=== PATIENT | male | born 1960 | race Two or more races ===

== ENCOUNTER 2019-07-15 19:38 | Inpatient (IN) | payer OTHER ==
[~2019-07-15] VITALS: Ht 195.6 cm; Wt 57.6 kg
[2019-07-15] MEDS ORDERED: DILTIAZEM HCL 25 MG/5 ML VIAL IV ONE ×3 (19:41→20:00)
[2019-07-15] MEDS ORDERED: ASPirin 81 mg TAB ONE (19:43)
[2019-07-15] MEDS ORDERED: ASPirin 81 mg TAB PO ONE (19:45)
[2019-07-15] MEDS ORDERED: SODIUM CHLORIDE 0.9% 500 ML IV ONE (19:45)
[2019-07-15 20:00] LABS: Basophils # (auto) 0.1 uL; Basophils % (auto) 1.1 % (0.0-2.0); Eosinophils # (auto) 0.2 uL; Eosinophils % (auto) 2.2 % (0.0-7.0); Hematocrit 43.9 % (41.0-53.0); Hemoglobin 14.2 g/dL (13.5-17.5); Lymphocytes # (auto) 2.8 uL; Lymphocytes % (auto) 35.1 % (10.0-50.0); Mean Corpuscular Hemoglobin 31.5 pg (28.0-32.0); Mean Corpuscular Hgb Conc. 32.3 g/dL (32.0-36.0); Mean Corpuscular Volume 97.5 fL (80.0-100.0); Monocytes # (auto) 0.8 uL; Monocytes % (auto) 10.4 % (0.0-12.0); Neutrophils # (auto) 4.1 uL; Neutrophils % (auto) 51.2 % (37.0-80.0); Nucleated Red Blood Cells % 0.4 %; Platelet Count (auto) 254 10^3/uL (140-450); Red Blood Cells 4.51 10^6/uL (4.5-5.90); Red Cell Distribution Width 15.5 % (11.8-14.3)
[2019-07-15] MEDS ORDERED: DILTIAZEM HCL 60 MG TAB PO ONE ×2 (20:15)
[2019-07-15 20:20] LABS: Alanine Aminotransferase 24 U/L (16-61); Albumin 2.8 g/dL (3.4-5.0); Anion Gap 15 (5-15); Aspartate Aminotransferase 33 U/L (15-37); BUN/Creatinine Ratio 12.2; Blood Urea Nitrogen 15 mg/dL (7-18); Calcium 8.7 mg/dL (8.5-10.1); Carbon Dioxide 21 mmol/L (21-32); Chloride 101 mmol/L (98-107); GFR African American 77 mL/min; GFR Non-African American 64 mL/min; Glucose 122 mg/dL (74-106); Magnesium 1.8 mg/dL (1.6-2.6); Potassium 3.4 mmol/L (3.5-5.1); Sodium 137 mmol/L (136-145)
[2019-07-15 20:21] LABS: INR 1.53 (0.9-1.15); Partial Thromboplastin Time 30.8 sec (23.64-32.05)
[2019-07-15 20:25] LABS: Alkaline Phosphatase 239 U/L (45-117); Bilirubin, Total 2.6 mg/dL (0.2-1.0)
[2019-07-15] MEDS ORDERED: CALCIUM GLUC 4.65meq/50ml D5AE 50 ML IV ONE (20:45)
[2019-07-15] MEDS ORDERED: CALCIUM CHL 100MG/ML 1,000 MG in D5W 5% 100 ML IV ONE (20:45)
[2019-07-15] MEDS ORDERED: LORazepam 2MG/ML-1ML VIAL ONE (20:51)
[2019-07-15] MEDS ORDERED: LORazepam 2MG/ML-1ML VIAL IV ONE ×2 (21:00→21:45)
[2019-07-15] MEDS: NOREPINEPHRINE 8 MG/250ML KIT 250 ML IV SCH (21:42)
[2019-07-15] MEDS ORDERED: MORPHINE SULF INJ 2 MG/ML SYRINGE 1ML IV PRN (22:45)
[2019-07-15] MEDS ORDERED: TEMAZEPAM 15 MG CAP PO PRN (22:45)
[2019-07-15] MEDS ORDERED: NITROGLYCERIN 0.4 MG SL TAB SL PRN (22:45)
[2019-07-15] MEDS ORDERED: ACETAMINOPHEN 325 MG TAB PO PRN (22:45)
[2019-07-15 23:46] LABS: Lactic Acid w/Reflex 8.1 mmol/L (0.4-2.0)
[2019-07-16] VITALS (91 sets, daily range): BP systolic 66–140; BP diastolic 34–112
[2019-07-16] MEDS ORDERED: FUROSEMIDE 20 MG/2 ML VIAL IV ONE
[2019-07-16] MEDS ORDERED: POTASSIUM CHL 20 Meq TABLET PO ONE
--- NOTE | 2019-07-16 00:05 | NUR ---
ADMITTED FROM ER PER JUAN MANUEL . PLACED IN OUR BED IN 111. PLACED ON MONITOR. REVEALED ATRIAL FIB /FLUTTER WITH VARIABLE BLOCK. HR IN THE 80-90 RANGE. ON LEVOPHED 20 MCG/MIN. ALERT. ORIENTED. SPEECH CLEAR. ROOM AIR. LUNGS CLEAR. ABDOMEN SOFT. NO NAUSEA/VOMITING. MOVES ALL EXTREMITIES WELL IN BED. STATED THAT HE DOESN'T WALK WELL. USES READING GLASSES BUT THEY ARE NOT WITH HIM. HAS A VERY DUSKY LOOK TO HIS SKIN. ICTERIC. STATED THAT HE HAD A RECENT DIAGNOSIS OF LIVER CA. NO TREATMENT YET. HAS CHF. LOWER LEG SWELLING LEFT GREATER THAN RIGHT. LOWER LEG COOLNESS. ABLE TO FEEL ALL PULSES. 2 PERIPHERAL IVS. BOTH SHOW NO REDNESS OR SWELLING. ORDERED DOSE OF LASIX AND POTASSIUM.
[2019-07-16 04:12] LABS: Basophils # (auto) 0 uL; Basophils % (auto) 0.2 % (0.0-2.0); Eosinophils # (auto) 0 uL; Eosinophils % (auto) 0.3 % (0.0-7.0); Hematocrit 41.1 % (41.0-53.0); Hemoglobin 13.5 g/dL (13.5-17.5); Lymphocytes # (auto) 1.7 uL; Lymphocytes % (auto) 16.6 % (10.0-50.0); Mean Corpuscular Hgb Conc. 32.8 g/dL (32.0-36.0); Mean Corpuscular Volume 97.4 fL (80.0-100.0); Monocytes # (auto) 0.7 uL; Monocytes % (auto) 7.5 % (0.0-12.0); Neutrophils # (auto) 7.5 uL; Neutrophils % (auto) 75.4 % (37.0-80.0); Nucleated Red Blood Cells % 0.1 %; Platelet Count (auto) 264 10^3/uL (140-450); Red Blood Cells 4.22 10^6/uL (4.5-5.90); Red Cell Distribution Width 15.7 % (11.8-14.3)
[2019-07-16 04:17] LABS: Albumin 2.6 g/dL (3.4-5.0); Calcium 8.9 mg/dL (8.5-10.1); Potassium 4.7 mmol/L (3.5-5.1)
[2019-07-16 04:20] LABS: BUN/Creatinine Ratio 10.5
[2019-07-16 04:23] LABS: Bilirubin, Total 3.6 mg/dL (0.2-1.0); Total Protein 7.2 g/dL (6.4-8.2)
[2019-07-16] MEDS: NOREPINEPHRINE 8 MG/250ML KIT 250 ML IV SCH (06:46)
[2019-07-16] MEDS ORDERED: VANCOMYCIN PER PHARMACY 0 MG IV SCH (07:45)
[2019-07-16] MEDS ORDERED: SODIUM CHLORIDE 0.9% 500 ML IV ONE (07:45)
--- NOTE | 2019-07-16 07:49 | NUR ---
CALL FROM MARGO AIKEN REGARDING RISING LACTIC ACID LEVEL, NEW ORDERS RECEIVED AND CARRIED OUT. WILL CLOSELY MONITOR.
[2019-07-16] MEDS ORDERED: PIPERACILLIN-TAZOB 3.375GM 100 ML IV SCH (08:00)
--- NOTE | 2019-07-16 08:15 | NUR ---
HOLD BOLUS PREVIOUSLY ORDERED BY MARGO GALLEGOS, GREENSTONE POLISHER OPERATOR CARDIOLOGY.
--- NOTE | 2019-07-16 08:16 | NUR ---
PROJECT ACCOUNT MANAGER AT BEDSIDE PROJECT ACCOUNT MANAGER ARTEMIO AT BEDSIDE, UPDATED PATIENT AND NURSE ON PATIENT STATUS, NEW ORDERS RECEIVED. WILL MONITOR CLOSELY. Addendum: 07/16/19 at 0824 by PJ IRWIN RN RN LEVOPHED SHUT OFF PER ROYER ULLOA, WILL MONITOR CLOSELY. 815
--- NOTE | 2019-07-16 08:20 | NUR ---
INITIAL ASSESSMENT PATIENT IN BED, ALERT AND ORIENTED X4 TALKING IN NORMAL TONES, NO SIGNS OF RESPIRATORY DISTRESS OR PAIN NOTED, PUSLES PRESENT ON EXTREMITIES X4, SKIN INTACT, IV'S PATENT AND SALINE FLUSHED, PATIENT ON MONITOR, DAUGHTER AT BEDSIDE, PATIENT AND DAUGHTER UPDATED ON PATIENT STATUS, VERBALIZED UNDERSTANDING. WILL CONTINUE TO MONITOR.
[2019-07-16 09:10] LABS: Cholesterol 96 mg/dL (< 200); Triglycerides 73 mg/dL (< 150)
[2019-07-16 09:12] LABS: HDL Cholesterol 28 mg/dL (40-59); LDL Cholesterol 69 mg/dL (< 100)
[2019-07-16] MEDS ORDERED: FUROSEMIDE 40 MG TAB PO SCH (10:00)
[2019-07-16] MEDS ORDERED: CARVEDILOL 3.125 MG TAB PO SCH (10:00)
[2019-07-16] MEDS ORDERED: ASPirin 81 mg TAB PO SCH (10:00)
--- NOTE | 2019-07-16 10:26 | NUR ---
MEDICAL RECEPTION SPECIALIST AT BEDSIDE
[2019-07-16] MEDS ORDERED: AMIODARONE HCL 150 MG in D5W 5% 100 ML IV ONE (12:00)
--- NOTE | 2019-07-16 12:00 | NUR ---
DR JACKMAN AT BEDSIDE UPDATED PATIENT AND FAMILY ON PATIENTS STATUS, DR JACKMAN DISCUSSED IN DETAIL POC WITH FAMILY, FAMILY VERBALIZED UNDERSTANDING. ORDERS RECEIVED.
--- NOTE | 2019-07-16 12:00 | NUR ---
DR JACKMAN AT BEDSIDE UPDATED PATIENT ON STATUS, NEW ORDERS RECEIVED. Addendum: 07/16/19 at 1227 by PJ IRWIN RN RN DAUGHTER UPDATED ON PATIENT STATUS AT BED SIDE BY DOCTOR, PATIENT AND DAUGHTER VERBALIZED UNDERSTANDING.
[2019-07-16] MEDS ORDERED: AMIODARONE HCL 900 MG in DEXTROSE 500 ML IV SCH ×2 (12:06→18:06)
--- NOTE | 2019-07-16 12:25 | NUR ---
DR SCHULTE AT BEDSIDE UPDATED PATIENT AND DAUGHTER ON STATUS, PATIENT VERBALIZED UNDERSTANDING AND NEW ORDERS RECEIVED.
[2019-07-16] MEDS: ALLOPURINOL 100 MG TAB PO SCH (12:59)
[2019-07-16] MEDS: FAMOTIDINE 20 MG TAB PO SCH ×2 (12:59→22:28)
[2019-07-16] MEDS ORDERED: VANCOMYCIN 1GM/250ML 250 ML IV ONE (13:00)
[2019-07-16] MEDS: ENOXAPARIN SOD 60 MG/0.6 ML SYRINGE SC SCH ×2 (13:00→22:28)
--- NOTE | 2019-07-16 13:07 | NUR ---
PAGED ROYER ULLOA AWAITING CALL BACK
--- NOTE | 2019-07-16 13:35 | NUR ---
CHANGE IN STATUS COMPLETION OF AMIODARONE BOLUS ORDERED BY HOSPITALIST COMFORT MEASURES PROVIDED, WHEN PATIENT ADJUSTED IN BED FOR COMFORT PATIENT BEGAN TO COMPLAIN OF SOB, PATIENT SAT UP ATTEMPTING TO GET OUT OF BED AND SHOUTING "i CANT BREATH" PATIENT PLACED ON NASAL CANNULA AT 6 LITERS, VITAL SIGNS UNSTABLE, PAGED HOSPITALIST TO NOTIFY OF SITUATION, TRAINING DESIGNER NEVAEH ASSISTING WITH PATIENT. PATIENT'S SON AND GRANDSON AT BEDSIDE. 1338 DR JACKMAN AT BEDSIDE, PATIENT ABLE TO VERBALIZE DISCOMFORT AND CONTINUED SOB, ATIVAN ADMINISTERED PER DR JACKAMN ORDERS. PATIENT CALM AND SITTING UP IN BED. PATIENT BEGAN TO BECOME SHORT OF BREATH AGAIN AND RESTLESS. 1400 DR DISCUSSED INTUBATION WITH FAMILY AND PATIENT, ALL VERBALIZED UNDERSTANDING. 1408 ETOMIDATE GIVEN 20MG 1409 5 MG VERSED GIVE 1411 20MG ETOMIDATE GIVEN 1411 5 MG VERSED GIVEN [address] JACKMAN
[2019-07-16] MEDS ORDERED: LORazepam 2MG/ML-1ML VIAL ONE (13:44)
[2019-07-16] MEDS ORDERED: ETOMIDATE (2MG/ML) 20ML VIAL IV ONE (13:58)
[2019-07-16] MEDS ORDERED: MIDAZOLAM HCL 5 MG/ML-1ML VIAL ONE ×2 (13:58→14:09)
[2019-07-16] MEDS ORDERED: SUCCINYLCHOLINE CHLORIDE 20 MG/ML 10ML VIAL IV ONE (14:11)
[2019-07-16] MEDS ORDERED: MIDAZOLAM DRIP 50 mg/50mL 50 ML IV ONE (14:14)
[2019-07-16] MEDS: MIDAZOLAM DRIP 50 mg/50mL 50 ML IV SCH (14:19)
[2019-07-16] MEDS ORDERED: MORPHINE SULFATE 4 MG/ML SYR/VIAL IV PRN (14:30)
--- NOTE | 2019-07-16 14:45 | NUR ---
LEVOPHED STARTED PER PROTOCOL SBP 60'S, HOSPITALIST AND PLASTIC MACHINE OPERATOR AT BEDSIDE AND ORDERED LEVOPHED TO BE INCREASED TO ACHIEVE ADEQUATE SBP. [id number] LEVOPHED INCREASED FROM 2MCG TO 15 MCG PER MD'S ORDERS.
[2019-07-16] MEDS ORDERED: PIPERACILLIN-TAZOB 2.25GM 50 ML IV SCH (15:00)
--- NOTE | 2019-07-16 15:00 | NUR ---
ER PHYSICIAN AT BEDSIDE FOR CENTRAL LINE PLACEMENT ORDERED BY DR JACKMAN. CONSENTS OBTAINED AND FILED IN CHART. 1700 PHYSICIAN AND ACCOUNT GENERAL MANAGER UNABLE TO SUCCESSFULLY PLACE SWANS ETHAN CATHETER BUT DID PLACE CENTRAL LINE TO RIGHT SUBCLAVIAN AND ARTERIAL LINE TO RIGHT FEMORAL. 1730 CXR BEING TAKEN AT THIS TIME
[2019-07-16] MEDS ORDERED: FUROSEMIDE 40 MG/4 ML VIAL IV ONE (15:15)
[2019-07-16 15:44] LABS: Basophils # (auto) 0.1 uL; Basophils % (auto) 0.8 % (0.0-2.0); Eosinophils # (auto) 0.2 uL; Hematocrit 40.1 % (41.0-53.0); Lymphocytes # (auto) 2.4 uL; Mean Corpuscular Hemoglobin 31.8 pg (28.0-32.0); Mean Corpuscular Hgb Conc. 32.4 g/dL (32.0-36.0); Mean Corpuscular Volume 98.1 fL (80.0-100.0); Monocytes # (auto) 0.9 uL; Monocytes % (auto) 8.5 % (0.0-12.0); Neutrophils # (auto) 6.6 uL; Neutrophils % (auto) 64.7 % (37.0-80.0); Nucleated Red Blood Cells % 0.2 %; Platelet Count (auto) 233 10^3/uL (140-450); Red Blood Cells 4.08 10^6/uL (4.5-5.90); Red Cell Distribution Width 15.7 % (11.8-14.3); White Blood Cell 10.1 10^3/uL (4.4-10.8)
[2019-07-16 15:49] LABS: Urine Bacteria NONE SEEN /hpf (None Seen); Urine Blood Negative /uL (Negative); Urine Specific Gravity 1.014 (1.001-1.035); Urine WBC 1 /hpf (0 - 3)
--- NOTE | 2019-07-16 15:50 | NUR ---
RT NOTE: ANIYA BEDSIDE FOR ART LINE PLACEMENT. PT IS AGGITATED. UNABLE TO DRAW ABG AT THIS TIME. WILL PULL ABG WHEN PROCEDURE IS DONE. WILL CONTINUE TO MONITOR.
[2019-07-16 16:09] LABS: Albumin 2.4 g/dL (3.4-5.0); BUN/Creatinine Ratio 14.3; Calcium 7.8 mg/dL (8.5-10.1)
[2019-07-16 16:11] LABS: Alcohol, Urine < 3.0 mg/dL (0-5); Amphetamine Screen, Urine NEGATIVE (NEGATIVE); Barbiturate Scree,Urine NEGATIVE (NEGATIVE); Benzodiazephine Screen, Urine NEGATIVE (NEGATIVE); Cannabinoid Screen, Urine NEGATIVE (NEGATIVE); Cocaine Screen, Urine NEGATIVE (NEGATIVE); Opiate Scree,Urine NEGATIVE (NEGATIVE); Phencyclidine Screen, Urine NEGATIVE (NEGATIVE)
[2019-07-16 16:11] LABS: Lactic Acid w/Reflex 7.8 mmol/L (0.4-2.0)
[2019-07-16 16:25] LABS: Bilirubin, Total 3.4 mg/dL (0.2-1.0); Total Protein 6.6 g/dL (6.4-8.2)
[2019-07-16] MEDS: fentaNYL Drip 2500mCg/250mlNS 250 ML IV SCH (16:40)
--- NOTE | 2019-07-16 16:40 | NUR ---
ADDED ADDITIONAL SEDATION DUE TO PATIENTS INCREASED RESPIRATIONS AND INCREASED BREATHING EFFORT, VERSED MAXED PER PROTOCOL, FENTANYL WAS ADDED ORDERED BY PHYSICIAN. 1640 STARTED AT 25 MCG, 1800 PATIENT AT 200 MCG DUE TO INCREASED RR, INCREASED LABORED BREATHING. FAMILY AT BEDSIDE, AWARE AND UPDATED ON PATIENTS STATUS.
[2019-07-16] MEDS ORDERED: FUROSEMIDE 40 MG/4 ML VIAL IV SCH (18:00)
[2019-07-16] MEDS: FUROSEMIDE INJECTION 250 MG in D5W 5% 225 ML IV SCH (18:00)
[2019-07-16] MEDS: DOBUTamine 1000MCG/ML 250 ML IV SCH (18:00)
[2019-07-16] MEDS: AMIODARONE HCL 900 MG in DEXTROSE 500 ML IV SCH (18:06)
--- NOTE | 2019-07-16 18:25 | NUR ---
SPOKE WITH HOSPITALIST DR TURNER NOTIFIED OF CHEST XRAY AND CENTRAL PLACEMENT AND TO VERIFY CHEST XRAY. ORDERED TO REVIEW REPORT AND CALL BACK. Addendum: 07/16/19 at 2004 by Estefanía Barney RN MISTAKEN ENTRY: CORRECT TIME OF HOSPITALIST CONTACT WAS 1931 AND NOT 1831.
--- NOTE | 2019-07-16 19:10 | NUR ---
END OF SHIFT NOTE PATIENT IN BED, ON VENTILATOR, VSS AND DOCUMENTED, REPORT GIVEN IN ROOM TO SCREEN PRINT OPERATOR RN. FAMILY REMAINS AT BEDSIDE. ENDORSED REVIEW OF ABG AND CXR RESULTS TO SCREEN PRINT OPERATOR RN.
--- NOTE | 2019-07-16 19:32 | NUR ---
PAGED DR TURNER TO READ CHEST XRAY REPORT AND CENTRAL LINE PLACEMENT, AWAITING RESPONSE, JIGNESH COSMETIC MAKER RN AWARE OF PENDING RETURN CALL.
[2019-07-16] MEDS: IPRATROPIUM BROM 0.5 MG/2.5ML INH SOL NEB SCH (19:34)
[2019-07-16] MEDS: ALBUTEROL SULF 2.5 MG/0.5ML(0.5%) NEB SOLN NEB SCH (19:34)
[2019-07-16] MEDS ORDERED: OME20T PO (19:59)
[2019-07-16] MEDS ORDERED: CARV3.1240 PO (19:59)
[2019-07-16] MEDS ORDERED: ALLO100T PO (19:59)
[2019-07-16] MEDS ORDERED: FURO40TA4 PO (19:59)
[2019-07-16] MEDS ORDERED: FURO20TA3 PO (19:59)
[2019-07-16] MEDS ORDERED: HYDR10TA26 PO (19:59)
[2019-07-16] MEDS ORDERED: POTA10TA51 PO (19:59)
[2019-07-16] MEDS ORDERED: TRAM50TA2 PO (19:59)
[2019-07-16] MEDS ORDERED: ISOS10TA2 PO (19:59)
--- NOTE | 2019-07-16 20:20 | NUR ---
PAGED HOSPITALIST RE: CENTRAL LINE COILED PER CXR.
--- NOTE | 2019-07-16 21:40 | NUR ---
PAGED HOSPITALIST RE: CENTRAL LINE COILED PER CXR.
--- NOTE | 2019-07-16 22:20 | NUR ---
S/W Joann AIKEN NP RE: CENTRAL LINE PLACEMENT AND HE WILL COME AND ADJUST WHEN ABLE; ALL GTTS MOVED TO PIV'S UNTIL ABLE TO USE.
[2019-07-17] VITALS (101 sets, daily range): BP systolic 44–169; BP diastolic 16–95
[2019-07-17] MEDS: ALBUTEROL SULF 2.5 MG/0.5ML(0.5%) NEB SOLN NEB SCH ×4 (00:32→20:30)
[2019-07-17] MEDS: IPRATROPIUM BROM 0.5 MG/2.5ML INH SOL NEB SCH ×4 (00:32→20:30)
--- NOTE | 2019-07-17 00:40 | NUR ---
Joann AIKEN NP AT BEDSIDE FOR CENTRAL LINE PLACEMENT [id number] WAS NOT IN RIGHT POSITION.
[2019-07-17 00:56] LABS: Basophils # (auto) 0.1 uL; Basophils % (auto) 0.4 % (0.0-2.0); Eosinophils # (auto) 0.1 uL; Eosinophils % (auto) 0.7 % (0.0-7.0); Hematocrit 38.6 % (41.0-53.0); Hemoglobin 12.6 g/dL (13.5-17.5); Lymphocytes # (auto) 2.9 uL; Lymphocytes % (auto) 18.4 % (10.0-50.0); Mean Corpuscular Hemoglobin 31.6 pg (28.0-32.0); Mean Corpuscular Hgb Conc. 32.6 g/dL (32.0-36.0); Monocytes # (auto) 1.3 uL; Monocytes % (auto) 8.6 % (0.0-12.0); Neutrophils # (auto) 11.1 uL; Neutrophils % (auto) 71.9 % (37.0-80.0); Nucleated Red Blood Cells % 0.1 %; Platelet Count (auto) 256 10^3/uL (140-450); Red Blood Cells 3.98 10^6/uL (4.5-5.90); Red Cell Distribution Width 15.8 % (11.8-14.3); White Blood Cell 15.5 10^3/uL (4.4-10.8)
[2019-07-17 01:13] LABS: BUN/Creatinine Ratio 15.5; Calcium 8.3 mg/dL (8.5-10.1); Magnesium 1.8 mg/dL (1.6-2.6); Potassium 3.9 mmol/L (3.5-5.1)
[2019-07-17 01:16] LABS: INR 2.86 (0.9-1.15); Partial Thromboplastin Time 48.1 sec (23.64-32.05)
[2019-07-17 01:52] LABS: Lactic Acid w/Reflex 7.2 mmol/L (0.4-2.0)
[2019-07-17] MEDS: MAGNESIUM SULFATE 1GM/100ML 100 ML IV SCH ×2 (03:45→05:15)
[2019-07-17 07:06] LABS: Basophils # (auto) 0.1 uL; Basophils % (auto) 1.2 % (0.0-2.0); Eosinophils # (auto) 0.3 uL; Eosinophils % (auto) 2.8 % (0.0-7.0); Hematocrit 39.6 % (41.0-53.0); Hemoglobin 12.8 g/dL (13.5-17.5); Lymphocytes # (auto) 2.7 uL; Mean Corpuscular Hemoglobin 31.4 pg (28.0-32.0); Mean Corpuscular Hgb Conc. 32.4 g/dL (32.0-36.0); Monocytes # (auto) 0.9 uL; Monocytes % (auto) 7.4 % (0.0-12.0); Neutrophils # (auto) 7.6 uL; Neutrophils % (auto) 65.6 % (37.0-80.0); Nucleated Red Blood Cells % 0.2 %; Platelet Count (auto) 268 10^3/uL (140-450); Red Blood Cells 4.09 10^6/uL (4.5-5.90); Red Cell Distribution Width 15.5 % (11.8-14.3); White Blood Cell 11.7 10^3/uL (4.4-10.8)
[2019-07-17 07:23] LABS: Calcium 8.2 mg/dL (8.5-10.1); Lactic Acid w/Reflex 2.9 mmol/L (0.4-2.0); Potassium 3.4 mmol/L (3.5-5.1)
[2019-07-17 07:25] LABS: BUN/Creatinine Ratio 19.3
--- NOTE | 2019-07-17 09:05 | NUR ---
SEDATION VACATION HELD HEMODYNAMICALLY UNSTABLE Addendum: 07/17/19 at 0906 by Jenifer Sparks RN Amended: Links added.
--- NOTE | 2019-07-17 09:45 | NUR ---
EL ULLOA DIGITAL PHOTO PRINTER AT BEDSIDE RECEIVED NEW ORDERS AND IMPLEMENTED
[2019-07-17] MEDS ORDERED: FAMOTIDINE (10MG/ML) 2ML VL IV ONE (09:51)
[2019-07-17] MEDS: ALLOPURINOL 100 MG TAB PO SCH (09:52)
[2019-07-17] MEDS: ASPirin 81 mg TAB PO SCH (09:53)
[2019-07-17 09:54] LABS: Albumin 2.3 g/dL (3.4-5.0); Bilirubin, Direct 3.9 mg/dL (0-0.2)
[2019-07-17] MEDS: MIDAZOLAM DRIP 50 mg/50mL 50 ML IV SCH ×4 (10:00→23:30)
[2019-07-17] MEDS ORDERED: PANTOPRAZOLE 40 MG/10 ML VIAL INJ IV SCH (10:00)
[2019-07-17] MEDS: FAMOTIDINE 20 MG TAB PO SCH (10:00)
--- NOTE | 2019-07-17 10:00 | NUR ---
DR SCHULTE AT BEDSIDE FOR NEPHROLOGY UPDATED ON STATUS AND CURRENT DRIPS
[2019-07-17 10:04] LABS: Bilirubin, Total 5.3 mg/dL (0.2-1.0)
[2019-07-17] MEDS: POTASSIUM CHL 20MEQ/100ML 100 ML IV SCH ×2 (10:37→12:30)
[2019-07-17] MEDS: ENOXAPARIN SOD 60 MG/0.6 ML SYRINGE SC SCH ×2 (10:37→22:00)
--- NOTE | 2019-07-17 11:03 | NUR ---
DR JACKMAN AT BEDSIDE NEW ORDERS RECEIVED
--- NOTE | 2019-07-17 11:12 | NUR ---
PATIENTS DAUGHTER AT BEDSIDE UPDATED ON STATUS AND PLAN OF CARE. ADDRESSED CONCERNS
--- NOTE | 2019-07-17 11:20 | NUR ---
DR DEGROOT AT BEDSIDE DISCUSSED PLAN OF CARE WITH PATIENTS DAUGHTER, RECEIVED ORDERS TO GIVEN 500ML NS FLUID CHALLENGE AND DECREASED LASIX DRIP TOP 2.5ML/HR. NEW ORDERS IMPLEMENTED
--- NOTE | 2019-07-17 12:12 | NUR ---
WOUND CARE NOTE: Wound care in to see patient due to intubation status, putting patient to high risk for skin breakdown. Patient is 58 y/o male with admitting diagnosis of Acute on Chronic CHF. Patient is resting in ICU bed in Rm. 111. Patient is intubated, sedated, on Vasopressor and mechanically ventilated. Patient appears to be in no pain using Duran Castañeda Faces Pain Scale. Unable to fully assess patient's sacral and back due to patient's nurse's report "patient is hemodynamically unstable, just doing slight turn" No reports of pressure injury noted. Patient's nurse also added that patient "unable to tolerate shifting, awaiting to transfer for heart cath". Wound care will try to see patient at later time. RECOMMENDATIONS: BID/PRN cleaning cleaning and application of Barrier cream to sacral/buttocks as preventative per MD order,frequent turning and repositioning schedule as condition permits, redistribute pressure points with pillows, elevate heels on pillows, continue monitoring by wound care while patient is mechanically ventilated.
--- NOTE | 2019-07-17 12:20 | NUR ---
TURNING HELD AT THIS TIME, HEMODYNAMICALLY UNSTABLE. WILL CONTINUE TO REASSESS
[2019-07-17 13:39] LABS: Lactic Acid w/Reflex 2.4 mmol/L (0.4-2.0)
[2019-07-17] MEDS: FUROSEMIDE INJECTION 250 MG in D5W 5% 225 ML IV SCH (15:00)
[2019-07-17] MEDS: fentaNYL Drip 2500mCg/250mlNS 250 ML IV SCH (15:00)
[2019-07-17] MEDS: DOBUTamine 1000MCG/ML 250 ML IV SCH (15:00)
[2019-07-17 17:38] LABS: Lactic Acid w/Reflex 3.1 mmol/L (0.4-2.0)
--- NOTE | 2019-07-17 17:45 | NUR ---
PATIENTS DAUGHTER CHANGED PASSWORD FOR PHONE AND DOOR NEW PASSWORD: [phone]
--- NOTE | 2019-07-17 18:00 | NUR ---
RT NOTE PT RECEIVED INTUBATED AND ON VENT V21. PT INTUBATED WITH A SIZE 8.0 ETT SECURED 24 CM AT THE LIP VIA JULIANN. PT IS ON THE ABOVE SETTINGS AND TOLERATING WELL. TUBE MOVED TO CENTER POSITION TO PREVENT SKIN BREAKDOWN AT THE LIP. VENT PLUGGED INTO RED OUTLET. ALARMS ARE SET AND AUDIBLE. TX HELD FOR NOW IN PREPARATION TO TRANSPORT PT TO SHOP LABORER.
[2019-07-17] MEDS: AMIODARONE HCL 900 MG in DEXTROSE 500 ML IV SCH (18:06)
--- NOTE | 2019-07-17 18:12 | NUR ---
RT ENRIQUE PT TRANSPORTED TO SHEET MANUFACTURING SUPERVISOR WITHOUT INCIDENT. RT MAGUE TOOK OVER FOR RT PAM IN SHEET MANUFACTURING SUPERVISOR.
--- NOTE | 2019-07-17 18:12 | NUR ---
PATIENT TRANSPORTED TO KINESEOLOGIST BY KINESEOLOGIST RNS AND RESPIRATORY THERAPY.
[2019-07-17] MEDS ORDERED: SODIUM CHL 0.9% 0 ML ONE (18:21)
[2019-07-17] MEDS ORDERED: LIDOCAINE 2%HCL (LOCAL ANESTH.) INJ 20ML MDV ONE (18:21)
[2019-07-17] MEDS ORDERED: ANGIOMAX 250 MG VIAL IV ONE (18:21)
[2019-07-17] MEDS ORDERED: IODIXANOL 320MG/ML 100ML BTL IV ONE (18:31)
[2019-07-17 18:40] LABS: Potassium 3.6 mmol/L (3.5-5.1)
[2019-07-17 18:44] LABS: Magnesium 1.8 mg/dL (1.6-2.6)
[2019-07-17] MEDS ORDERED: HEPARIN SODIUM (PORCINE) 5000 UNITS/ML 1ML VIAL ONE (19:05)
[2019-07-17] MEDS ORDERED: DIGOXIN (250MCG/ML) 2 ML AMPULE ONE (19:10)
[2019-07-17] MEDS ORDERED: HEPARIN DRIP/D5W 100UNITS/ML 250 ML IV ONE (19:30)
--- NOTE | 2019-07-17 19:30 | NUR ---
RECEIVED REPORT FROM AGUEDA EGAN: PATIENT OFF UNIT AT THIS TIME.
[2019-07-17] MEDS: HEPARIN DRIP/D5W 100UNITS/ML 250 ML IV SCH (19:50)
--- NOTE | 2019-07-17 19:50 | NUR ---
RECEIVED FROM DEPOT MANAGER - DEPOT MANAGER TEAM AND DR. DEGROOT PRESENT: DR. DEGROOT SPOKE WITH CARPET MECHANIC AND CARMENCITA MEDELLIN RN ABOUT GOALS AND PLAN OF CARE. PER DR. DEGROOT HE WANTS HEMODYNAMICS AND WEDGE PRESSURES EVERY FOUR HOURS. THE GOAL IS TO BRING WEDGE PRESSURES BETWEEN 18-20, SVR < 1200, INCREASE CARDIAC OUTPUT MUCH POSSIBLE, AUGMENTED LESS THAN 120, MEAN > 60. PER DR. DEGROOT, IF PATIENT DETERIORATES, THE PATIENT WILL LIKELY NEED AN IMPELLA, AND TRANSFER TO HIGHER LEVEL OF CARE FOR TRANSPLANT. INTUBATED AND SEDATED, GROSSLY UNRESPONSIVE. PUPILS 2+ SLUGGISH, HYPOACTIVE COUGH AND GAG. AFIB WITH ECTOPY, HR 80-90s. IABP TO LEFT FEMORAL, AUGMENTING 130s, MEAN 90s. +PEDAL PULSES AND RADIAL PULSES. FEET ARE COOL BUT PINK. 8.0 ETT 26 AT THE LIP. LS CTA, DIMINISHED TO BASES. EVEN AND UNLABORED BREATHING. MINIMAL ETT AND ORAL SECRETIONS. SpO2> 95% ON CURRENT VENT SETTINGS. ABD FLAT. HYPOACTIVE BS. LBM 07/16. OGT TO LIS, + AIR BOLUS. TOURE PATENT AND INTACT DRAINING CLEAR YELLOW URINE. PREVIOUS RIGHT [place] REMOVED, DRESSING INTACT, NO ACTIVE BLEEDING, HEMATOMA OR ECCHYMOSIS. PREVIOUS RIGHT IJ CORDIS REMOVED, NO ACTIVE BLEEDING, HEMATOMA, OR ECCHYMOSIS. LEFT IJ TLC, CDI, PATENT WITH BLOOD RETURN. LEFT FEMORAL SWAN ALYSIA CATHETER ~ 85 CM AT THE HUB. 18 G PIV TO LEFT FOREARM, CDI, PATENT WITH BLOOD RETURN. 18 G PIV TO RIGHT WRIST, CDI, AND PATENT WITH BLOOD RETURN. NO PAIN BEHAVIORS IDENTIFIED AT THIS TIME, WILL CONT CARE. NO FAMILY AT BEDSIDE AT THIS TIME.
[2019-07-17] MEDS: NOREPINEPHRINE 8 MG/250ML KIT 250 ML IV SCH (20:50)
--- NOTE | 2019-07-17 21:00 | NUR ---
INCREASE HEPARIN GTT TO 750 UNITS/HR - PER PHARMACY - CONFIRMED WITH DR. DEGROOT THAT HE WANTS HEPARIN PER PROTOCOL
--- NOTE | 2019-07-17 21:00 | NUR ---
UNABLE TO COMPLETE SEDATION VACATION AT THIS TIME: PATIENT ON IABP, INTERMITTENTLY BREATHES ABOVE VENT Addendum: 07/17/19 at 3018 by Karen Garcia RN RN Amended: Links added.
--- NOTE | 2019-07-17 21:15 | NUR ---
LAB DRAW SENT
[2019-07-17 21:59] LABS: Basophils # (auto) 0.1 uL; Basophils % (auto) 1.4 % (0.0-2.0); Eosinophils # (auto) 0.3 uL; Eosinophils % (auto) 3.6 % (0.0-7.0); Hematocrit 42.3 % (41.0-53.0); Hemoglobin 13.9 g/dL (13.5-17.5); Lymphocytes # (auto) 1.6 uL; Lymphocytes % (auto) 19.6 % (10.0-50.0); Mean Corpuscular Hemoglobin 32.1 pg (28.0-32.0); Mean Corpuscular Hgb Conc. 32.9 g/dL (32.0-36.0); Mean Corpuscular Volume 97.7 fL (80.0-100.0); Monocytes # (auto) 0.7 uL; Monocytes % (auto) 7.8 % (0.0-12.0); Neutrophils # (auto) 5.7 uL; Neutrophils % (auto) 67.6 % (37.0-80.0); Nucleated Red Blood Cells % 0.3 %; Platelet Count (auto) 240 10^3/uL (140-450); Red Blood Cells 4.33 10^6/uL (4.5-5.90); Red Cell Distribution Width 15.5 % (11.8-14.3); White Blood Cell 8.4 10^3/uL (4.4-10.8)
[2019-07-17] MEDS: FAMOTIDINE (10MG/ML) 2ML VL IV SCH (22:07)
[2019-07-17 22:23] LABS: INR 2.69 (0.9-1.15)
[2019-07-17 22:44] LABS: Partial Thromboplastin Time 86.9 sec (23.64-32.05)
--- NOTE | 2019-07-17 23:00 | NUR ---
DECREASED HEPARIN GTT TO 550 UNITS/HR - PER PHARMACY - PTT 89.6
[2019-07-18] VITALS (104 sets, daily range): BP systolic 31–198; BP diastolic 13–98
[2019-07-18] MEDS: IPRATROPIUM BROM 0.5 MG/2.5ML INH SOL NEB SCH ×4 (00:04→19:08)
[2019-07-18] MEDS: ALBUTEROL SULF 2.5 MG/0.5ML(0.5%) NEB SOLN NEB SCH ×4 (00:04→19:08)
--- NOTE | 2019-07-18 00:10 | NUR ---
SPOKE WITH DR DEGROOT: UPDATE ON PATIENT'S HEMODYNAMIC STATUS, UOP, AND DRIPS. STOP LASIX GTT, ORDER READBACK AND VERIFIED. PER DR. DEGROOT, CALL BACK AT 0400 IF NUMBERS ARE WORSE. ORDERS READBACK AND VERIFIED
--- NOTE | 2019-07-18 00:15 | NUR ---
TEMP 100.4 F AXILLARY - ICE PACKS APPLIED TO BILATERAL AXILLA
--- NOTE | 2019-07-18 00:20 | NUR ---
LAB DRAW SENT
--- NOTE | 2019-07-18 00:45 | NUR ---
REMOVED PIV TO LEFT FOREARM - NOTED WITH MILD ERYTHEMA, WILL APPLY ICE PACK
[2019-07-18 00:50] LABS: Magnesium 1.7 mg/dL (1.6-2.6)
--- NOTE | 2019-07-18 01:10 | NUR ---
PAGED FIELD CROP FARMING SUPERVISOR HOSPITALIST
--- NOTE | 2019-07-18 01:17 | NUR ---
SPOKE WITH ROYER BECKMAN: NOTIFIED OF POTASSIUM AND MAGNESIUM RESULTS, PATIENT'S STATUS, AND URINE OUT. ORDERS FOR 40 MEQ KCL IVPB, AND 2 GM MAGNESIUM. ORDERS READBACK AND VERIFIED.
[2019-07-18] MEDS ORDERED: POTASSIUM CHL 20MEQ/100ML 100 ML IV ONE ×3 (01:19→16:45)
[2019-07-18] MEDS: POTASSIUM CHL 20MEQ/100ML 100 ML IV SCH ×2 (01:25→02:28)
--- NOTE | 2019-07-18 02:00 | NUR ---
TEMP 100.6 -TYLENOL PRN GIVEN
--- NOTE | 2019-07-18 02:15 | NUR ---
AUGMENTED PRESSURE IN THE HIGH 80S, LOW 90 - STARTED ON 2 MCG/MIN OF LEVOPHED GTT
[2019-07-18] MEDS: MAGNESIUM SULFATE 1GM/100ML 100 ML IV SCH ×3 (02:16→23:48)
[2019-07-18] MEDS: MIDAZOLAM DRIP 50 mg/50mL 50 ML IV SCH ×5 (02:56→20:29)
[2019-07-18] MEDS: fentaNYL Drip 2500mCg/250mlNS 250 ML IV SCH ×2 (03:44→15:17)
--- NOTE | 2019-07-18 04:15 | NUR ---
TEMP NOW 98.5F ORALLY
--- NOTE | 2019-07-18 05:14 | NUR ---
LAB DRAW SENT
[2019-07-18 05:17] LABS: Basophils # (auto) 0.1 uL; Eosinophils # (auto) 0.3 uL; Eosinophils % (auto) 3.5 % (0.0-7.0); Hematocrit 41.1 % (41.0-53.0); Hemoglobin 13.8 g/dL (13.5-17.5); Lymphocytes # (auto) 1.4 uL; Lymphocytes % (auto) 14.5 % (10.0-50.0); Mean Corpuscular Hemoglobin 32.3 pg (28.0-32.0); Mean Corpuscular Hgb Conc. 33.5 g/dL (32.0-36.0); Mean Corpuscular Volume 96.3 fL (80.0-100.0); Monocytes # (auto) 0.7 uL; Monocytes % (auto) 7.9 % (0.0-12.0); Neutrophils # (auto) 6.9 uL; Neutrophils % (auto) 73.1 % (37.0-80.0); Nucleated Red Blood Cells % 0.1 %; Platelet Count (auto) 233 10^3/uL (140-450); Red Blood Cells 4.27 10^6/uL (4.5-5.90); Red Cell Distribution Width 15.9 % (11.8-14.3); White Blood Cell 9.5 10^3/uL (4.4-10.8)
[2019-07-18 05:38] LABS: BUN/Creatinine Ratio 15.7; Calcium 8.1 mg/dL (8.5-10.1); Magnesium 2.4 mg/dL (1.6-2.6); Potassium 3.2 mmol/L (3.5-5.1)
[2019-07-18 06:00] LABS: INR 2.36 (0.9-1.15)
--- NOTE | 2019-07-18 06:00 | NUR ---
PER LAB PTT STILL BEING RAN
[2019-07-18 06:04] LABS: Partial Thromboplastin Time 72.8 sec (23.64-32.05)
--- NOTE | 2019-07-18 06:08 | NUR ---
PTT 72.8 - NO CHANGE IN HEPARIN GTT PER PROTOCOL
--- NOTE | 2019-07-18 06:10 | NUR ---
PAGED UPWARD BOUND DIRECTOR HOSPITALIST
--- NOTE | 2019-07-18 06:23 | NUR ---
SPOKE WITH KARUNA MACHINE SAND MIXER: NOTIFIED OF POTASSIUM AND PHOSPHOROUS LEVEL. ORDERS FOR 26.4 MEQ KPHOS IVPB. ORDERS READBACK AND VERIFIED.
--- NOTE | 2019-07-18 06:45 | NUR ---
PARTIAL BED BATH, AND KULWANT CARE COMPLETED
[2019-07-18] MEDS: DOBUTamine 1000MCG/ML 250 ML IV SCH (06:52)
[2019-07-18] MEDS ORDERED: POTASSIUM PHOSPHATE 26.4 MEQ in SODIUM CHL 0.9% 100 ML IV ONE (07:00)
[2019-07-18] MEDS: NOREPINEPHRINE 8 MG/250ML KIT 250 ML IV SCH (07:27)
--- NOTE | 2019-07-18 08:28 | NUR ---
Resumed care at 0730. Orders reviewed and ongoing assessments being done. Being treated for multiple problems and remains intubated and sedated. At this time not able to follow any commands but withdraws to touch and when rendering care. 8 Fr. 50ml IABP to left groin in place and functioning properly, no signs of bleeding at insertion site or hematoma. Frequency 1:1 with maximum augmentation. Remains in Afib/Aflutter with frequent PVC's. Both lower extremities warm with palpable pulses. PA catheter also inserted via left groin. Hemodynamics done and recorded. Remains on Levophed gtt for hemodynamic stability. Dobutamine also infusing at 2.5 mcg/kg/min. Heparin infusing at 550 units/hour and continuing to monitor PT/PTT. No signs of bleeding.
[2019-07-18] MEDS: FAMOTIDINE (10MG/ML) 2ML VL IV SCH ×2 (09:58→22:11)
[2019-07-18] MEDS: ALLOPURINOL 100 MG TAB PO SCH (09:58)
[2019-07-18] MEDS: ASPirin 81 mg TAB PO SCH (09:58)
--- NOTE | 2019-07-18 10:44 | NUR ---
Dr. Philip, profile mill operator tape control was in at 10 am. Discussed condition and plan of care. Will continue current plan of care. Levophed gtt was increased at 0909 to 10 mcg/min secondary to drop in mean and augmentation pressure, (mean <60 and aug <100). Addendum: 07/18/19 at 1300 by Mariza Gonzáles RN RN Per Dr. Philip may give 40 mg of Lasix if urine outputs decreases < 30ml/hour.
[2019-07-18 11:37] LABS: INR 2.3 (0.9-1.15); Partial Thromboplastin Time 56.7 sec (23.64-32.05)
--- NOTE | 2019-07-18 13:05 | NUR ---
Dr. Lowe, restaurant expeditor rounded at 1148. Daughter Sulema at bedside. Discussed condition and plan of care, all questions answered. Per Dr. Lowe continue to hold Lasix, need adequate filling pressure to wean off IABP. Dr. Brito, hospitalist rounded at [address] Garcia today. Daughter Sulema at bedside and confirmed current plan.
--- NOTE | 2019-07-18 14:46 | NUR ---
Heparin gtt continues to infuse at 550 units/hour. 11am PTT 56.7, per protocol no changes to be made. Next PTT draw at 1700. No bleeding noted.
[2019-07-18] MEDS: FUROSEMIDE INJECTION 250 MG in D5W 5% 225 ML IV SCH (15:00)
--- NOTE | 2019-07-18 15:32 | NUR ---
Serge blood blood approximately at 1503, all IV infusions put on hold to draw blood from TLC, noted immediate drop in arterial pressures post approximately 30 seconds. Levophed increased momentarily to 12 mcg/min, back down to 8 mcg/min.
[2019-07-18 15:52] LABS: BUN/Creatinine Ratio 15.2; Calcium 7.8 mg/dL (8.5-10.1); Magnesium 2.2 mg/dL (1.6-2.6); Potassium 3.4 mmol/L (3.5-5.1)
[2019-07-18 15:55] LABS: INR 2.18 (0.9-1.15); Partial Thromboplastin Time 58.4 sec (23.64-32.05)
[2019-07-18 17:52] LABS: INR 2.08 (0.9-1.15); Partial Thromboplastin Time 55.4 sec (23.64-32.05)
[2019-07-18] MEDS: AMIODARONE HCL 900 MG in DEXTROSE 500 ML IV SCH (18:06)
--- NOTE | 2019-07-18 19:12 | NUR ---
Dr. Brito in unit at 1710 prior to leaving the hospital. Reviewed plan of care. Per Dr. Brito may start Amiodarone gtt if he goes into AFIB RVR at a set dose of 0.5mg/min. 1600 not able to wedge PA catheter. Report given to Karen ROMEO.
--- NOTE | 2019-07-18 19:45 | NUR ---
OPENING NOTE: ASSUMED CARE FROM AGUEDA HOBSON INTUBATED AND SEDATED, GROSSLY UNRESPONSIVE, DOES RESIST INTERMITTENTLY. PUPILS 2+ SLUGGISH, HYPOACTIVE COUGH AND GAG. AFIB WITH ECTOPY, HR 80-90s. IABP TO LEFT FEMORAL, AUGMENTING 100-110ss, MEAN 80s. NO ACTIVE BLEEDING, OR ECCHYMOSIS NOTED. +PEDAL PULSES AND RADIAL PULSES. FEET ARE COOL BUT PINK. 8.0 ETT 26 AT THE LIP. LS CTA, DIMINISHED TO BASES. EVEN AND UNLABORED BREATHING. MINIMAL ETT AND ORAL SECRETIONS. SpO2> 98% ON CURRENT VENT SETTINGS. ABD FLAT. HYPOACTIVE BS. LBM 07/16. OGT CLAMPED, + AIR BOLUS, PALE BROWN ASPIRATE. TOURE PATENT AND INTACT DRAINING ORANGE/LEO URINE. PREVIOUS RIGHT [place] DRESSING INTACT, NO ACTIVE BLEEDING, HEMATOMA OR ECCHYMOSIS. PREVIOUS RIGHT IJ CORDIS NO ACTIVE BLEEDING, HEMATOMA, OR ECCHYMOSIS. LEFT IJ TLC, CDI, PATENT WITH BLOOD RETURN. LEFT FEMORAL SWAN ALYSIA CATHETER ~ 85 CM AT THE HUB. 18 G PIV TO RIGHT WRIST, CDI, AND PATENT WITH BLOOD RETURN. NO PAIN BEHAVIORS IDENTIFIED AT THIS TIME, WILL CONT CARE. NO FAMILY AT BEDSIDE AT THIS TIME. REINFORCED POC. MAINTAINED PATIENT SAFETY: BED LOCKED AND IN THE LOWEST POSITION, NP AT BEDSIDE. WILL CONT CARE
[2019-07-18] MEDS: HEPARIN DRIP/D5W 100UNITS/ML 250 ML IV SCH (20:00)
--- NOTE | 2019-07-18 20:40 | NUR ---
DAMPENED PA WAVEFORM - PAGED DR. MIKAYLA SCHULZ FLUSHED, TROUBLE SHOOTED, CONSULTED WITH AGUEDA DE LA CRUZ.
--- NOTE | 2019-07-18 20:48 | NUR ---
SPOKE WITH DR. DEGROOT: MADE AWARE OF DAMPENED PA WAVEFORM. PER DR. DEGROOT, FLUSH WITH 5 CC OF NS, FAST. ADVISED THAT PHYSICAL DESIGN ENGINEER ATTEMPTED THAT WITH NO CHANGE. PER DR. DEGROOT, DO NOT MANIPULATE LINE AT THIS TIME. DR. DEGROOT MADE AWARE OF BORDERLINE URINE OUTPUT. PER DR. DEGROOT, FLUID CHALLENGE WITH 500 ML NS. ORDERS READBACK AND VERIFIED
[2019-07-18] MEDS ORDERED: SODIUM CHLORIDE 0.9% 500 ML IV ONE (21:00)
--- NOTE | 2019-07-18 21:00 | NUR ---
UNABLE TO COMPLETE SEDATION VACATION AT THIS TIME: REMAINS WITH IABP. BREATHES OVER VENT AND INTERMITTENTLY GRIMACES. WILL CONT CARE Addendum: 07/18/19 at 2219 by Karen Garcia RN RN Amended: Links added.
--- NOTE | 2019-07-18 21:30 | NUR ---
REMOVED 18 G PIV TO RIGHT WRIST - TIP INTACT, BLEEDING STOPPED
--- NOTE | 2019-07-18 21:35 | NUR ---
18 G PIV STARTED TO RIGHT UPPER ARM
--- NOTE | 2019-07-18 21:39 | NUR ---
RT NOTE RT WAS ASKED BY AGUEDA JOSE TO SEE ABOUT PUTTING IN A BITE BLOCK FOR THE PT. RT WENT TO BEDSIDE AND AGREED THAT THE PT WAS CLAMPING DOWN ON THE TUBE AND NEEDED A BLOCK IN PLACE. RT CHANGED OUT THE JULIANN WITH ONE THAT HAS A BITE BLOCK ON IT. JULIANN WAS CHANGED OUT WITHOUT INCIDENT. TUBE REMAINS IN PLACE, 24CM AT THE LIP.
[2019-07-18 22:04] LABS: Potassium 3.6 mmol/L (3.5-5.1)
[2019-07-18 22:10] LABS: Magnesium 1.8 mg/dL (1.6-2.6)
[2019-07-18] MEDS ORDERED: MAGNESIUM SULFATE 1GM/100ML 100 ML IV ONE (23:29)
--- NOTE | 2019-07-18 23:31 | NUR ---
SPOKE WITH ROYER BECKMAN: NOTIFIED OF MAGNESIUM LEVEL 1.8. ORDERS TO REPLACE WITH 2 G OF MAGNESIUM. ORDERS READBACK AND VERIFIED
[2019-07-19] VITALS (97 sets, daily range): BP systolic 18–155; BP diastolic 12–100
[2019-07-19] MEDS: ALBUTEROL SULF 2.5 MG/0.5ML(0.5%) NEB SOLN NEB SCH ×4 (00:08→18:41)
[2019-07-19] MEDS: IPRATROPIUM BROM 0.5 MG/2.5ML INH SOL NEB SCH ×4 (00:08→18:41)
[2019-07-19] MEDS: MAGNESIUM SULFATE 1GM/100ML 100 ML IV SCH (00:27)
--- NOTE | 2019-07-19 00:36 | NUR ---
PATIENT STATUS: REMAINS ON THE IABP, SEE FLOWSHEET FOR ASSESSMENT, SITE CDI, NO ECCHYMOSIS OR ACTIVE BLEEDING. WILL CONT CARE.
[2019-07-19] MEDS: MIDAZOLAM DRIP 50 mg/50mL 50 ML IV SCH ×6 (01:14→21:15)
--- NOTE | 2019-07-19 01:34 | NUR ---
FAMILY AT BEDSIDE
[2019-07-19] MEDS: fentaNYL Drip 2500mCg/250mlNS 250 ML IV SCH ×2 (03:05→13:12)
--- NOTE | 2019-07-19 04:30 | NUR ---
PTT 57 - NO CHANGE IN HEPARIN GTT PER PROTOCOL
[2019-07-19 04:34] LABS: Basophils # (auto) 0.1 uL; Basophils % (auto) 0.9 % (0.0-2.0); Eosinophils # (auto) 0.7 uL; Eosinophils % (auto) 9.7 % (0.0-7.0); Hematocrit 43.9 % (41.0-53.0); Hemoglobin 14.3 g/dL (13.5-17.5); Lymphocytes # (auto) 1.3 uL; Lymphocytes % (auto) 17.4 % (10.0-50.0); Mean Corpuscular Hemoglobin 31.8 pg (28.0-32.0); Mean Corpuscular Hgb Conc. 32.6 g/dL (32.0-36.0); Mean Corpuscular Volume 97.6 fL (80.0-100.0); Monocytes % (auto) 13.7 % (0.0-12.0); Neutrophils # (auto) 4.4 uL; Neutrophils % (auto) 58.3 % (37.0-80.0); Nucleated Red Blood Cells % 0.2 %; Platelet Count (auto) 146 10^3/uL (140-450); Red Cell Distribution Width 16.1 % (11.8-14.3); White Blood Cell 7.5 10^3/uL (4.4-10.8)
--- NOTE | 2019-07-19 04:39 | NUR ---
NON SUSTAINED SVT - 30 SECONDS - CONVERTED ON OWN
[2019-07-19 04:48] LABS: INR 1.82 (0.9-1.15)
[2019-07-19 04:52] LABS: Magnesium 2.3 mg/dL (1.6-2.6); Potassium 3.7 mmol/L (3.5-5.1)
[2019-07-19 04:55] LABS: BUN/Creatinine Ratio 12.5; Calcium 7.4 mg/dL (8.5-10.1)
--- NOTE | 2019-07-19 05:40 | NUR ---
PARTIAL BED BATH, AND NEW GOWN PLACED
--- NOTE | 2019-07-19 05:40 | NUR ---
TOO UNSTABLE TO CHANGE LINEN THIS AM
--- NOTE | 2019-07-19 06:00 | NUR ---
CLOSING NOTE: REMAINS INTUBATED, SEDATED, AND ON IABP. SEE FLOWSHEET FOR ASSESSMENT. VSS. WILL CONT CARE
[2019-07-19] MEDS: NOREPINEPHRINE 8 MG/250ML KIT 250 ML IV SCH (06:43)
--- NOTE | 2019-07-19 07:11 | NUR ---
REPORT AND CARE ENDORSED TO AGUEDA HOBSON
--- NOTE | 2019-07-19 08:46 | NUR ---
Resumed care at 0715, orders reviewed and ongoing assessments being done. Remains intubated and sedated. Does withdraw to touch and frowns when rendering care. 8Fr. 50ml IABP remains in place (to left groin) and functioning properly, no signs of bleeding or hematoma at insertion site. Frequency remains 1:1 with maximum augmentation. Cardiac rhythm, AFIB/AFLUTTER with frequent ectopy (PVC's, couplets). Remains on Dobutamine at a fix rate of 2.5 mcg/kg/min for hemodynamic stability. Levophed also infusing and titrating as appropriate. PA catheter in place, measured at 85 cm at the hub. Measuring hemodynamics Q4 hr (CO, CI, WEDGE). Heparin gtt also infusing at 550 units/hour. No signs of bleeding noted.
[2019-07-19] MEDS: ALLOPURINOL 100 MG TAB PO SCH (09:47)
[2019-07-19] MEDS: ASPirin 81 mg TAB PO SCH (09:47)
[2019-07-19] MEDS: FAMOTIDINE (10MG/ML) 2ML VL IV SCH ×2 (09:47→22:04)
[2019-07-19] MEDS: DOBUTamine 1000MCG/ML 250 ML IV SCH (09:48)
[2019-07-19] MEDS: HEPARIN DRIP/D5W 100UNITS/ML 250 ML IV SCH (10:15)
--- NOTE | 2019-07-19 10:46 | NUR ---
Dr. Lowe, rn clinician rounded at 1010. Discussed condition and plan of care. Per Dr. Lowe give 500ml bolus of normal saline if Wedge pressure measures 12 or less. Daughter Sulema arrived to visit.
[2019-07-19 12:17] LABS: Potassium 3.5 mmol/L (3.5-5.1)
--- NOTE | 2019-07-19 12:39 | NUR ---
Estimated needs based on CBW 67.7 kg-for intubated pts in ICU 1640 kcal (PSU 2002) vs. 7974-4471 kcal (27-30 kcal/kg for wt gain promotion) 100-115 g protein (1.5-1.7 g/kg) Addendum: 07/19/19 at [address] Amended: Links added.
[2019-07-19] MEDS ORDERED: SODIUM CHLORIDE 0.9% 500 ML IV ONE (13:30)
--- NOTE | 2019-07-19 13:30 | NUR ---
Noon hemodynamics measured, PCWP=9. Per Dr. Lowe 500ml bolus of normal saline initiated at 1230. Dr. Lowe returned to unit approximately at 1130 am and spoke with daughter Sulema at bedside. Dr. Brito also rounded for Dr. Garcia today.
--- NOTE | 2019-07-19 15:58 | NUR ---
Levophed infusion stopped at 1327. Pressures holding. Per Dr. Lowe maintain a mean IABP pressure 60-80 with a augmented pressure 20 over mean pressure. Family have continued to visit throughout the day.
[2019-07-19 17:33] LABS: Potassium 3.6 mmol/L (3.5-5.1)
[2019-07-19] MEDS: AMIODARONE HCL 900 MG in DEXTROSE 500 ML IV SCH (18:06)
--- NOTE | 2019-07-19 18:39 | NUR ---
Pressures continue to hold without Levophed. Dobutamine remains at 2.5 mcg/kg/min and no changes made on the IABP. Has become more responsive as shift has progressed, increase in facial movement and increase response when stimulated. Remains on Heparin gtt with no signs of bleeding.
--- NOTE | 2019-07-19 19:30 | NUR ---
CARE ASSUMED. ASSESSMENT: VENTILATED AC/14, TV - 450, FIO2 30%, PEEP +5. SATS 100. LUNGS CLEAR BILATERALLY. LARGE AMT. OF THICK, LIGHT YELLOW SECRETIONS VIA ETT. ORAL CARE WITH MODERATE AMT. OF THICK OLD BLOOD SECRETIONS. SEDATED ON VERSED 15 MG AND FENTANYL 200 MCG/HR. PUPILS 2+, SMALL AMT. OF SCLERA EDEMA, YELLOW SCLERA. RESPOND TO NOXIOUS STIMULI, GRIMACES, (+) STRONG COUGH. CARDIAC - A-FIB/A-FLUTTER, RATE 70'S, FREQUENT PVC'S AND PAC'S, COUPLETS. IABP 1:1, 50 CC, 8 FR. THRU LEFT FEMORAL AREA. SWAN ALYSIA LEFT FEMORAL AT 87 CM AT HUB. NO HEMATOMA FORMATION PALPATED AT THIS TIME. DRESSING CHANGED, TO BOTH. MEAN PRESSURES 90'S, AUGMENTED 120'S. RADIAL AND PEDAL PULSES PALPABLE, SKIN WARM AND DRY. ABDOMEN - FLAT, SOFT, HYPOACTIVE BOWEL SOUNDS. TOURE - CLEAR, ORANGE URINE. HEPARIN AT 550 UNITS /HR. DOBUTAMINE AT 2.5 MCG/KG/MIN. THRU RT. IJ. TRIPLE LUMEN TO LEFT IJ, IV SITE TO RFA INTACT. NO FAMILY AT BEDSIDE AT THIS TIME.
--- NOTE | 2019-07-19 19:45 | NUR ---
ARTERIAL, CVP AND PA LINES ZEROED AND LEVELED.
--- NOTE | 2019-07-19 21:05 | NUR ---
PT'S DAUGHTER ROHIT AT BEDSIDE.
[2019-07-19 21:26] LABS: Magnesium 1.8 mg/dL (1.6-2.6); Potassium 3.5 mmol/L (3.5-5.1)
--- NOTE | 2019-07-19 23:00 | NUR ---
PT'S SONS AT BEDSIDE. QUESTIONS AND CONCERNS ADDRESSED.
[2019-07-19] MEDS ORDERED: MAGNESIUM SULFATE 1GM/100ML 100 ML IV ONE (23:15)
[2019-07-19] MEDS: POTASSIUM CHL 20MEQ/100ML 100 ML IV SCH (23:33)
[2019-07-20] VITALS (108 sets, daily range): BP systolic 40–132; BP diastolic 14–110
--- NOTE | 2019-07-20 | NUR ---
PT'S DAUGHTER ROHIT AT BEDSIDE.
[2019-07-20] MEDS: MIDAZOLAM DRIP 50 mg/50mL 50 ML IV SCH ×5 (01:29→19:36)
[2019-07-20] MEDS: POTASSIUM CHL 20MEQ/100ML 100 ML IV SCH (01:30)
--- NOTE | 2019-07-20 02:00 | NUR ---
ACTIVITY - TOLERATING TURNING, BP'S UNCHANGED. CONTINUES ON VERSED, FENTANYL, DOBUTAMINE. ADEQUATE URINE OUTPUT.
[2019-07-20] MEDS: fentaNYL Drip 2500mCg/250mlNS 250 ML IV SCH ×2 (02:26→13:42)
--- NOTE | 2019-07-20 04:00 | NUR ---
COMPLETE BED BATH - TOLERATES.
[2019-07-20 04:31] LABS: Basophils # (auto) 0 uL; Basophils % (auto) 0.4 % (0.0-2.0); Eosinophils # (auto) 0.5 uL; Eosinophils % (auto) 10.1 % (0.0-7.0); Hematocrit 39.7 % (41.0-53.0); Hemoglobin 13.4 g/dL (13.5-17.5); Lymphocytes # (auto) 1.1 uL; Lymphocytes % (auto) 20.2 % (10.0-50.0); Mean Corpuscular Hemoglobin 32.4 pg (28.0-32.0); Mean Corpuscular Hgb Conc. 33.7 g/dL (32.0-36.0); Mean Corpuscular Volume 96.4 fL (80.0-100.0); Monocytes # (auto) 0.7 uL; Monocytes % (auto) 13.4 % (0.0-12.0); Neutrophils % (auto) 55.9 % (37.0-80.0); Nucleated Red Blood Cells % 0.1 %; Platelet Count (auto) 80 10^3/uL (140-450); Red Blood Cells 4.12 10^6/uL (4.5-5.90); White Blood Cell 5.4 10^3/uL (4.4-10.8)
[2019-07-20 04:48] LABS: Albumin 1.6 g/dL (3.4-5.0); Calcium 7.4 mg/dL (8.5-10.1); Magnesium 2.2 mg/dL (1.6-2.6)
[2019-07-20 04:53] LABS: BUN/Creatinine Ratio 9.8; Bilirubin, Total 6.3 mg/dL (0.2-1.0); Total Protein 5.6 g/dL (6.4-8.2)
[2019-07-20 05:12] LABS: INR 1.58 (0.9-1.15); Partial Thromboplastin Time 68.6 sec (23.64-32.05)
[2019-07-20] MEDS: ALBUTEROL SULF 2.5 MG/0.5ML(0.5%) NEB SOLN NEB SCH ×5 (06:53→23:55)
[2019-07-20] MEDS: IPRATROPIUM BROM 0.5 MG/2.5ML INH SOL NEB SCH ×5 (06:53→23:55)
--- NOTE | 2019-07-20 07:35 | NUR ---
OPENING NOTE Report received from Mary ROMEO, care assumed. Physical assessment performed. Patient is intubated on ventilator, 8.0 ETT. Patient tolerating vent at this time. Oxygen saturation 100%. Lungs clear anteriorly. Pupils equal and reactive. Pulses palble bilaterally. Variable heart rhythm with sinus rhythm to atrial fibrillation with PVC's and PAC's. Blood pressure maintaining without vasopressor assistance. IABP noted in left groin. Dressing is CDI, 1:1 ratio. [place]ole catheter patent, secure below bladder. Skin assessment performed. Patient repositioned. Bed locked in lowest position with HOB [address] Will continue to monitor.
--- NOTE | 2019-07-20 07:40 | NUR ---
REPORT TO LOYDA ROMEO.
--- NOTE | 2019-07-20 07:45 | NUR ---
LINES [place] catheter noted in left groin. Dressing secure, CDI. Approx 87 cm at the hub. CXR performed to confirm placement. All lines zero'd and calibrated. Wedge and C.O./C.I. performed.
--- NOTE | 2019-07-20 08:00 | NUR ---
HEMODYNAMICS PAWP:13 C.O.:3.4 C.I.:2.8 [id number]
--- NOTE | 2019-07-20 09:00 | NUR ---
SEDATION Patient moving toes but not opening eyes at this time. Patient did withdrawal leg from stimuli. Sedation being increased due to patient stacking breaths on ventilator. Patient drawing volumes of 150-400 intermittently. Patient also has hiccups. No distress noted. Respiratory rate maintaining 18-20 breaths per minute. Oxygen saturation 100%. Heart rhythm is Afib with PVC's. Blood pressure stable.
[2019-07-20] MEDS: HEPARIN DRIP/D5W 100UNITS/ML 250 ML IV SCH ×2 (09:30→19:36)
[2019-07-20] MEDS: ALLOPURINOL 100 MG TAB PO SCH (09:32)
[2019-07-20] MEDS: ASPirin 81 mg TAB PO SCH (09:32)
[2019-07-20] MEDS: FAMOTIDINE (10MG/ML) 2ML VL IV SCH ×2 (09:32→21:34)
--- NOTE | 2019-07-20 10:10 | NUR ---
MD VISIT at bedside. MD updated on hemodynamic trends, gtts, and heart rhythms. No new orders received at this time. MD reviewing chart.
--- NOTE | 2019-07-20 10:24 | NUR ---
FAMILY Patient daughter Sulema at bedside. Daughter updated on plan of care. All questions and concerns addressed.
--- NOTE | 2019-07-20 10:56 | NUR ---
assessment Patient is a 58 year old male who is on a vent. No family at bedside. I will continue to monitor for post discharge needs after extubation. Addendum: 07/20/19 at 1057 by Radha HANNON Amended: Links added.
--- NOTE | 2019-07-20 11:00 | NUR ---
MD VISIT at bedside assessing patient. MD aware of gtts, IABP, and labs. MD reviewing chart. Orders obtained.
[2019-07-20] MEDS ORDERED: TPN PER PHARMACY 0 ML IV SCH (11:15)
[2019-07-20] MEDS: DOBUTamine 1000MCG/ML 250 ML IV SCH (11:27)
--- NOTE | 2019-07-20 12:00 | NUR ---
MD VISIT at bedside.
--- NOTE | 2019-07-20 12:00 | NUR ---
HEMODYNAMICS PAWP:16 C.O.:3.1 C.I.:2.6 SVR:[id number]
[2019-07-20 13:07] LABS: Potassium 4.6 mmol/L (3.5-5.1)
[2019-07-20 13:24] LABS: Phosphorus 3.1 mg/dL (2.5-4.90); Pre Albumin 3.3 mg/dL (20.0-40.0)
--- NOTE | 2019-07-20 13:30 | NUR ---
FAMILY AT BEDSIDE
--- NOTE | 2019-07-20 13:38 | NUR ---
REPOSITIONING/AUGMENTS Patient was repositioned on left side. Shortly after repositioning patients augemented pressures began to decrease below 90. Augments would eventually return above but continue to intermittently dip below alarm setting. Arterial waveform damped, PA pressures increased and CVP decreased to 2-3. Patient would also have more frequent ectopy with heart rate 100-115. Patient repositioned back supine with HOB 30 degrees, augments returned to 90-110, all waveforms stabilized and patients ectopy decreased.
--- NOTE | 2019-07-20 16:00 | NUR ---
HEMODYNAMICS PAWP:15 C.O.:3.3 C.I.:2.8 SVR:[id number]
--- NOTE | 2019-07-20 16:30 | NUR ---
ROUNDING NOTE Patient resting, vitals stable at this time. When oral care performed, patient raised bilateral arms up towards ETT. Patient returned to resting once personal care was finished. Patient tolerated turning to right side for repositioning. No changes in hemodynamic stability. Will continue to monitor.
[2019-07-20] MEDS: AMIODARONE HCL 900 MG in DEXTROSE 500 ML IV SCH (18:06)
[2019-07-20 18:16] LABS: Magnesium 1.7 mg/dL (1.6-2.6); Potassium 3.8 mmol/L (3.5-5.1)
--- NOTE | 2019-07-20 18:42 | NUR ---
PAGED notified of magnesium level of 1.7, orders obtained for electrolyte replacement.
--- NOTE | 2019-07-20 19:11 | NUR ---
REPORT Report given to Mary ROMEO, care endorsed.
[2019-07-20] MEDS: MAGNESIUM SULFATE 1GM/100ML 100 ML IV SCH ×2 (19:13→19:39)
--- NOTE | 2019-07-20 19:30 | NUR ---
CARE ASSUMED. REPORT FROM LOYDA ROMEO. ASSESSMENT: CONTINUES SEDATED AND INTUBATED. VERSED AT 11 MG/HR, FENTANYL AT 200 CMG/MIN. ALL INFUSING THRU RIGHT IJ. DOBUTAMINE, HEPARIN CONTINUES. IABP 1:1, AUTO MODE, ECG TRIGGER. HR 90'S, INCREASED ECTOPY COMPARED TO PREVIOUS SHIFT. AUGMENTED AND MEAN PRESSURES PER PUMP LOWER THAN PREVIOUS SHIFT AT THIS TIME. RADIAL AND PEDAL PULSES 2+ BILATERALLY. SKIN COOL TO TOUCH, BUT CORE TEMP 100.1. LUNGS CLEAR UPPER LOBES, COARSE AT BASES. SATS 100%. THICK, LIGHT YELLOW SECRETIONS VIA ETT. ORAL CARE DONE, NO BREAKDOWN TO ORAL MUCOSA NOTED AT THIS TIME. THICK ORAL SECRETIONS PRESENT. TOURE CATH - ORANGE, CLEAR, URINE.
[2019-07-20] MEDS ORDERED: DEXTROSE (50%) 50ML SYRG IV SCH (20:00)
[2019-07-20] MEDS ORDERED: TPN PER PHARMACY IV NR ×6 (20:00)
[2019-07-20] MEDS: NOREPINEPHRINE 8 MG/250ML KIT 250 ML IV SCH (20:50)
[2019-07-20] MEDS: SACUBITRIL-VALSARTAN 24mg/26mg TAB PO SCH (22:00)
--- NOTE | 2019-07-20 23:00 | NUR ---
[id number]- FAMILY AND FRIENDS IN AND OUT VISITING WITH PATIENT.
[2019-07-21] VITALS (95 sets, daily range): BP systolic 0–114; BP diastolic 0–82
--- NOTE | 2019-07-21 01:00 | NUR ---
INCREASED ECTOPY NOTED AT THIS TIME WITH HEART RATE VARYING BETWEEN 80-130'S, CONTINUES A-FIB, /A-FLUTTER, COUPLET, TRIPLETS. AUGMENTED PRESSURES HIGH 80'S TO 90'S. WILL START AMIODARONE AT 0.5 MG.MIN THRU RIGHT IJ CENTRAL LINE AT THIS TIME. WILL CONTINUE TO MONITOR.
[2019-07-21] MEDS: AMIODARONE HCL 900 MG in DEXTROSE 500 ML IV SCH ×2 (01:20→23:49)
--- NOTE | 2019-07-21 02:00 | NUR ---
ECTOPY DECREASED AND HR NOW IN THE 70-80'S. AUGMENTED PRESSURES CONTINUE IN HIGH 80-90'S, MEANS 70'S. URINE OUTPUT ADEQUATE. WILL CONTINUE TO MONITOR.
[2019-07-21] MEDS: fentaNYL Drip 2500mCg/250mlNS 250 ML IV SCH ×2 (02:53→14:57)
[2019-07-21 04:26] LABS: Basophils # (auto) 0 uL; Basophils % (auto) 0.4 % (0.0-2.0); Hemoglobin 13.3 g/dL (13.5-17.5); Mean Corpuscular Hemoglobin 32.4 pg (28.0-32.0); Neutrophils # (auto) 4.4 uL; White Blood Cell 6.2 10^3/uL (4.4-10.8)
[2019-07-21 04:28] LABS: Eosinophils # (auto) 0.2 uL; Hematocrit 39.3 % (41.0-53.0); Lymphocytes # (auto) 0.8 uL; Lymphocytes % (auto) 13.2 % (10.0-50.0); Mean Corpuscular Hgb Conc. 33.8 g/dL (32.0-36.0); Mean Corpuscular Volume 95.7 fL (80.0-100.0); Monocytes # (auto) 0.7 uL; Monocytes % (auto) 10.6 % (0.0-12.0); Neutrophils % (auto) 71.8 % (37.0-80.0); Nucleated Red Blood Cells % 0.1 %; Platelet Count (auto) 64 10^3/uL (140-450)
[2019-07-21 04:41] LABS: Potassium 3.5 mmol/L (3.5-5.1)
[2019-07-21 04:45] LABS: Albumin 1.5 g/dL (3.4-5.0); BUN/Creatinine Ratio 9.2; Calcium 7.3 mg/dL (8.5-10.1); Magnesium 1.9 mg/dL (1.6-2.6)
[2019-07-21 04:48] LABS: Bilirubin, Total 5.8 mg/dL (0.2-1.0); Phosphorus 2.4 mg/dL (2.5-4.90); Total Protein 5.6 g/dL (6.4-8.2)
[2019-07-21 04:57] LABS: INR 1.56 (0.9-1.15); Partial Thromboplastin Time 69.8 sec (23.64-32.05)
--- NOTE | 2019-07-21 05:40 | NUR ---
AUGMENTED PRESSURES LOW 80'S, NO IMPROVEMENT AFTER NS BOLUS. LEVOPHED 2 MCG/MIN STARTED. WITH IMMEDIATE CHANGE IN AUGMENTED PRESSURES, 104, MEAN 89 WILL CONTINUE MONITOR.
[2019-07-21] MEDS: NOREPINEPHRINE 8 MG/250ML KIT 250 ML IV SCH (05:47)
[2019-07-21] MEDS: InsuLIN REG 1unit/0.01ml Soln (100units/ml) SC SCH ×4 (06:00→18:27)
[2019-07-21] MEDS: ACCU-CHEK COMFORT CURVE STRIP VI SCH ×4 (06:00→18:27)
[2019-07-21] MEDS: IPRATROPIUM BROM 0.5 MG/2.5ML INH SOL NEB SCH ×3 (06:09→18:57)
[2019-07-21] MEDS: ALBUTEROL SULF 2.5 MG/0.5ML(0.5%) NEB SOLN NEB SCH ×3 (06:09→18:57)
[2019-07-21] MEDS: MIDAZOLAM DRIP 50 mg/50mL 50 ML IV SCH ×4 (06:43→23:49)
--- NOTE | 2019-07-21 07:30 | NUR ---
CARE ENDORSED TO LOYDA ROMEO
--- NOTE | 2019-07-21 07:35 | NUR ---
OPENING NOTE Report received from Mary ROMEO, care assumed. Physical assessment performed. Patient is intubated on ventilator, 8.0 ETT. Patient tolerating vent at this time. Oxygen saturation 100%. Lungs clear anteriorly. Pupils equal and reactive. Cough and gag present. Pulses palpable bilaterally. Atrial fibrillation with PVC's and PAC's noted on bedside monitor. Hemodynamic stability maintained with levophed gtt and amiodarone. IABP noted in left groin. Dressing is CDI, 1:1 ratio. Nichole catheter patent, secure below bladder. Skin assessment performed. Patient repositioned. Bed locked in lowest position with HOB [address] Will continue to monitor.
--- NOTE | 2019-07-21 07:55 | NUR ---
LINES [place] catheter noted in left groin. Dressing secure, CDI. Approx 87 cm at the hub. CXR performed to confirm placement. All lines zero'd and calibrated. Wedge and C.O./C.I. performed.
--- NOTE | 2019-07-21 08:00 | NUR ---
HEMODYNAMICS PAWP:24 C.O.:2.6 C.I.:2.2 SVR:[id number]
--- NOTE | 2019-07-21 09:18 | NUR ---
MD VISIT at bedside. MD updated on hemodynamics, IV drips, IABP augments, and ectopy. MD ordered for electrolyte replacement.
[2019-07-21] MEDS: FAMOTIDINE (10MG/ML) 2ML VL IV SCH (09:38)
[2019-07-21] MEDS: ASPirin 81 mg TAB PO SCH (09:38)
[2019-07-21] MEDS: SACUBITRIL-VALSARTAN 24mg/26mg TAB PO SCH ×2 (09:38→22:00)
[2019-07-21] MEDS: ALLOPURINOL 100 MG TAB PO SCH (09:38)
--- NOTE | 2019-07-21 09:40 | NUR ---
Provider/Hospitalist at bedside at bedside assessing patient. MD made aware of low trending platelet count, AM labs, IV medications, and hemodynamics. MD reviewing patient chart, orders received. MD speaking with Tour Manager regarding plan of care.
--- NOTE | 2019-07-21 09:50 | NUR ---
Provider/Hospitalist at bedside and at bedside. Patient placed supine, lines zero'd. MD performing PAWP. MD aware of IABP ratio, alarms, and IV drip medications. Orders obtained. MD would like to get patients Wedge pressure near 15. Once achieved may decrease IABP ratio to 1:2, assess patients hemodynamics. If patient continues to maintain hemodynamic stability, RN may continue to wean. Will notify MD of any changes from baseline. MD plans to attempt weaning from IABP today and tomorrow.
[2019-07-21] MEDS ORDERED: POTASSIUM EFFERVESENT TAB 25 MEQ PO ONE ×2 (10:00→15:15)
[2019-07-21] MEDS ORDERED: ASPirin 81 mg TAB PO SCH (10:00)
[2019-07-21] MEDS ORDERED: FUROSEMIDE 40 MG/4 ML VIAL IV ONE (10:15)
--- NOTE | 2019-07-21 10:15 | NUR ---
Provider/Hospitalist at bedside at bedside.
--- NOTE | 2019-07-21 11:00 | NUR ---
LEVOPHED GTT Levophed gtt titrated off, maintaining hemodynamics at this time. Will continue to monitor.
--- NOTE | 2019-07-21 12:00 | NUR ---
ROUNDING Hemodynamic maintaining at this time. Patient running atrial fibrillation with PAC/PVC's. When patient is stimulated, patient begins to shiver/tremor. Tremors subside shortly after stimuli has stopped. Patient continuing to have hiccups on ventilator, RT is aware. Oxygen saturation 100%. No distress noted. Will continue to monitor.
--- NOTE | 2019-07-21 12:00 | NUR ---
HEMODYNAMICS PAWP:23 C.O.:3.2 C.I.:2.7 SVR:[id number]
[2019-07-21] MEDS: DOBUTamine 1000MCG/ML 250 ML IV SCH (12:12)
[2019-07-21] MEDS ORDERED: ALBUMIN 5% 250 ML IV ONE ×2 (13:30→15:30)
--- NOTE | 2019-07-21 13:30 | NUR ---
TEMPERATURE Patient running core temp 100.1. Cooling measures initiated. Ice packed applied to trunk, room temperature decreased, and fan in place. Will continue to monitor.
--- NOTE | 2019-07-21 14:40 | NUR ---
FAMILY Patient daughter Sulema called for update.
--- NOTE | 2019-07-21 15:05 | NUR ---
Called/paged Dr. Garcia called re: Potassium level 3.4. MD returned paged, orders obtained for electrolyte replacement. updated on urine output.
--- NOTE | 2019-07-21 15:43 | NUR ---
Nutrition Follow-Up Note Wt. 66.5 kg Pt. continues to be intubated and sedated at this time. Receives nutrition support through PN at goal rate 42 mL/Hr. Estimated needs: Estimated needs based on CBW 67.7 kg-for intubated pts in ICU 1640 kcal (PSU 2002) vs. 2041-3544 kcal (27-30 kcal/kg for wt gain promotion) 100-115 g protein (1.5-1.7 g/kg) Labs: ALT 325H, ALT 507H, ALB 1.5H, Ca 7.3L Skin: Alex 13, high risk GI: last BM unknown; pt. does not have BM since admission PES: Altered nutrition related lab values r/t hepatic dysfunction and acute/chronic medical conditions aeb severely elev LFT's, hypoalb (ongoing) Monitor: TPN intake/tolerance, BG levels <180 mg/dL, weights, labs, GI. F/U HR 2-3 days. Recommendations: 1) Continue nutrition support through PPN as tolerated at goal rate established by provider to meet >75% estimated needs. 2) IL not recommended d/t elevated LFT's.
[2019-07-21] MEDS ORDERED: POTASSIUM EFFERVESENT TAB 25 MEQ GT ONE (15:45)
--- NOTE | 2019-07-21 16:00 | NUR ---
Hemodynamics PAWP:18 C.O.:3.2 C.I.:2.7 SVR:[id number]
--- NOTE | 2019-07-21 17:00 | NUR ---
Reposition/Linen Skin assessment performed. Partial linen change completed, jose care performed. Patient tolerated activity well. Vitals stable. No distress noted.
--- NOTE | 2019-07-21 17:50 | NUR ---
Family updated on pt status Family of MADIE ANG updated on patient's status and condition. All questions and concerns addressed. Sulema (daughter)verbalized understanding.
--- NOTE | 2019-07-21 19:30 | NUR ---
CARE ASSUMED. PT. CONTINUES AND SEDATED AND INTUBATED. ON VERSED AND FENTANYL, FIO2 30%. LUNG DIMINISHED AND COARSE AT BASES. SATS 100%. SKIN COOL TO TOUCH, SLIGHTLY FEBRILE 100.4 CORE. ABDOMEN - FLAT. HYPOACTIVE B.S NGT TO LIS. NO B.M TOURE - CLEAR, ORANGE URINE. SKIN WARM AND DRY. FEVER 100.1 CORE IV - ALL LINES INTACT. IABP INTACT, NO HEMATOMA
[2019-07-21] MEDS ORDERED: TPN PER PHARMACY IV NR ×7 (20:00)
--- NOTE | 2019-07-21 21:30 | NUR ---
VISITOR: PT'S DAUGHTER ROHIT AT BEDSIDE. QUESTIONS AND CONCERNS ADDRESSED.
[2019-07-21] MEDS: PANTOPRAZOLE 40 MG/10 ML VIAL INJ IV SCH (22:00)
--- NOTE | 2019-07-21 22:00 | NUR ---
IABP ALARMS LEAKING CIRCUIT OR DISCONNECTED WHEN PATIENT TURNS LEFT. WILL TURN RIGHT AND SUPINE.
[2019-07-22] VITALS (107 sets, daily range): BP systolic 42–134; BP diastolic 17–84
[2019-07-22] MEDS: ALBUTEROL SULF 2.5 MG/0.5ML(0.5%) NEB SOLN NEB SCH ×4 (00:48→18:25)
[2019-07-22] MEDS: IPRATROPIUM BROM 0.5 MG/2.5ML INH SOL NEB SCH ×4 (00:48→18:26)
[2019-07-22 03:43] LABS: Eosinophils # (auto) 0.4 uL; Hemoglobin 12.8 g/dL (13.5-17.5); Monocytes # (auto) 0.8 uL; Nucleated Red Blood Cells % 0.1 %; Red Cell Distribution Width 16.3 % (11.8-14.3)
[2019-07-22 03:44] LABS: Basophils # (auto) 0 uL; Basophils % (auto) 0.6 % (0.0-2.0); Eosinophils % (auto) 7.2 % (0.0-7.0); Hematocrit 37.9 % (41.0-53.0); Lymphocytes # (auto) 1.2 uL; Lymphocytes % (auto) 21.2 % (10.0-50.0); Mean Corpuscular Hemoglobin 32.4 pg (28.0-32.0); Mean Corpuscular Hgb Conc. 33.9 g/dL (32.0-36.0); Mean Corpuscular Volume 95.5 fL (80.0-100.0); Monocytes % (auto) 13.5 % (0.0-12.0); Neutrophils # (auto) 3.2 uL; Neutrophils % (auto) 57.5 % (37.0-80.0); Platelet Count (auto) 47 10^3/uL (140-450); Red Blood Cells 3.97 10^6/uL (4.5-5.90); White Blood Cell 5.6 10^3/uL (4.4-10.8)
[2019-07-22 04:00] LABS: INR 1.41 (0.9-1.15); Partial Thromboplastin Time 59.6 sec (23.64-32.05)
[2019-07-22 04:04] LABS: Albumin 1.9 g/dL (3.4-5.0); BUN/Creatinine Ratio 10.3; Calcium 7.5 mg/dL (8.5-10.1); Magnesium 1.8 mg/dL (1.6-2.6); Phosphorus 2.4 mg/dL (2.5-4.90); Potassium 3.6 mmol/L (3.5-5.1)
[2019-07-22 04:07] LABS: Bilirubin, Total 6.5 mg/dL (0.2-1.0); Total Protein 5.8 g/dL (6.4-8.2)
[2019-07-22] MEDS: MIDAZOLAM DRIP 50 mg/50mL 50 ML IV SCH ×4 (04:47→22:03)
[2019-07-22] MEDS: fentaNYL Drip 2500mCg/250mlNS 250 ML IV SCH ×2 (04:48→15:29)
--- NOTE | 2019-07-22 06:55 | NUR ---
REPORT TO JESSICA ROMEO
--- NOTE | 2019-07-22 07:25 | NUR ---
ASSESS- PT. LYING IN BED ON VENT SIZE # 8.0 ET, 26 AT THE LIP, AC-14, TV-450, PEEP-5, FIO2-30%. LUNGS CLEAR TRAVIS. INSPIRATORY AND EXPIRATORY, DIMINISHED BASES TRAVIS. PT. HAS GAG/COUGH REFLEX. PUPILS 2 AND BRISK TRAVIS. RESPONDS TO DEEP PAINFUL/TACTILE STIMULI. ON VERSED GTT. AT 12 MG./HR. AND FENTANYL GTT. AT [address] M[address]. TLC LT. IJ INTACT. TPN AT 50 CC/HR. ABD. SOFT, FLAT. BOWEL SOUNDS HYPOACTIVE ALL FOUR QUADRANTS. OGT IN PLACE TO LIS WITH LT. BROWN DRAINAGE. PT. IS ON IABP TO LT. GROIN 1:1 INTACT 50 CC, 8 FR., NO HEMATOMA, NO BRUISING, NO BLEEDING. RADIAL PULSES STRONG, PALPABLE TRAVIS. WITH BRISK CAPILLARY REFILL. DORSALIS PEDAL PULSES STRONG, PALPABLE TRAVIS. SKIN WARM TO TOUCH UPPER AND LOWER EXTREMITIES. COLOR JAUNDICE. SWAN ALYSIA LT. GROIN INTACT. HEPARIN GTT. AT 550 UNITS/HR. AMIODARONE GTT. AT 0.5 MG./MIN. PT. IS IN A-FIB WITH PAC'S AND PVC'S, HR 90'S.
[2019-07-22] MEDS: ACCU-CHEK COMFORT CURVE STRIP VI SCH ×4 (08:30→17:46)
[2019-07-22] MEDS: InsuLIN REG 1unit/0.01ml Soln (100units/ml) SC SCH ×4 (08:30→17:46)
--- NOTE | 2019-07-22 09:00 | NUR ---
Family updated on pt status Family of SAVMADIE updated on patient's status and condition. All questions and concerns addressed. DAUGHTER verbalized understanding. VISITING AT THE BS.
--- NOTE | 2019-07-22 09:05 | NUR ---
CORE TEMP 100.2. PLACED ICE PACKS TRAVIS. AXILLA.
[2019-07-22] MEDS: PANTOPRAZOLE 40 MG/10 ML VIAL INJ IV SCH (09:13)
[2019-07-22] MEDS: HEPARIN DRIP/D5W 100UNITS/ML 250 ML IV SCH (09:13)
[2019-07-22] MEDS: ALLOPURINOL 100 MG TAB PO SCH (09:14)
--- NOTE | 2019-07-22 09:15 | NUR ---
MARGO GALLEGOS Provider/Hospitalist at bedside. GAVE UPDATE ON PT.
[2019-07-22] MEDS: SACUBITRIL-VALSARTAN 24mg/26mg TAB PO SCH ×2 (09:48→22:00)
--- NOTE | 2019-07-22 10:10 | NUR ---
DR. LIU Provider/Hospitalist at bedside. GAVE UPDATE ON PT.
[2019-07-22] MEDS ORDERED: FUROSEMIDE 20 MG/2 ML VIAL IV ONE (10:45)
--- NOTE | 2019-07-22 10:45 | NUR ---
INSIDE UPHOLSTERER EILEEN AT BS.
--- NOTE | 2019-07-22 10:50 | NUR ---
WOUND CARE NOTE: New wound care request received regarding "pressure area at urethral meatus" . Bedside nurse took photograph of patient's wound upon discovery for reference. Patient continue resting in ICU bed in Rm. 111. Patient remain intubated, sedated, and mechanically ventilated. Patient appears to be in no pain using Duran Castañeda Faces Pain Scale. His Alex sore is 12. Noted distal tip of patient's penis has 0.5x0.5cm open partial thickness wound, appears to be urinary catheter related trauma, no drainage/odor noted. MD ordered Daily/PRN cleaning and application of topical triple antibiotic to wound site. Patient's bedside nurse to cleanse and apply topical antibiotic on penile wound per MD order. RECOMMENDATIONS: Daily/PRN cleaning and application of Triple antibiotic to penile wound per MD order,continuation of all other wound care orders prescribed by MD,continue with skin/wound plan of care, continue monitoring by wound care while patient is mechanically ventilated. Addendum: 07/22/19 at 1509 by Bee Pablo RN Amended: Links added.
--- NOTE | 2019-07-22 10:53 | NUR ---
DR. JACKMAN Provider/Hospitalist at bedside. GAVE UPDATE ON PT. NEW ORDERS RECEIVED.
[2019-07-22] MEDS ORDERED: BACITRACIN-POLYMYXIN B TOPICAL OINT UD TOP SCH (10:54)
[2019-07-22] MEDS: FUROSEMIDE INJECTION 100 MG in D5W 5% 90 ML IV SCH (11:50)
--- NOTE | 2019-07-22 12:00 | NUR ---
TEMP DECREASED TO 99.8 CORE TEMP.
--- NOTE | 2019-07-22 12:28 | NUR ---
Called/paged Dr. JACKMAN called re: . Waiting for call back. Continue care.
--- NOTE | 2019-07-22 12:35 | NUR ---
returned call Dr. JACKMAN returned call, updated on patient status and reason for call, orders received. Continue care.
[2019-07-22] MEDS ORDERED: NEOMYCIN-BACITRACIN-POLYM UNITDOSE PKG TOP OINT TOP ONE (13:00)
[2019-07-22] MEDS: DICYCLOMINE HCL 10 MG CAP GT SCH ×2 (13:40→22:05)
[2019-07-22] MEDS: DOBUTamine 1000MCG/ML 250 ML IV SCH (13:41)
[2019-07-22] MEDS: CLINDAMYCIN 600MG IV 50 ML IV SCH ×2 (13:41→22:06)
--- NOTE | 2019-07-22 14:15 | NUR ---
CORE TEMP 100.5. PLACED ICE PACKS TRAVIS. AXILLA.
--- NOTE | 2019-07-22 16:45 | NUR ---
CORE TEMP REMAINS ELEVATED 100.8. ICE PACKS TRAVIS. AXILLA IN PLACE. NO COVERS ON PT.
--- NOTE | 2019-07-22 17:10 | NUR ---
DAUGHTER VISITING AT THE BS. GAVE UPDATE.
--- NOTE | 2019-07-22 19:45 | NUR ---
VENTED AND SEDATED, FENTANYL, VERSED INFUSING THRU RIJ CENTRA LINE TO RIJ. FIO2 30%, SATS 100%. LUNGS CLEAR UPPER LOBES AND COARSE AT BASES. ETT SECRETIONS PINK TINGED. ORAL SECRETIONS CREAMY AND FOUL SMELLING. OGT PRESENT . POOR DENTITION. CARDIAC - CONTINUES ON AMIODARONE 0.5, HEPARIN 550 UNITS/HR. ABDOMEN - SOFT, HYPOACTIVE BOWEL SOUND, NO B.M SINCE ADMISSION. TOURE - CLEAR, LIGHT LEO URINE, LASIX 5 MG/HR IN PROGRESS. SKIN - L.E WITH SEVERAL DRYING SKIN LESSIONS. ] IABPP 1:1, AUGMENTED 80'S, IABP TO RIGHT GROIN. ALL PULSES 2+ BILATERALLY. EDEMA TO UPPER AND LOWER 1-2+ IABP ALARMING HELIUM LEAK AND LINE DISCONNECTED WHEN PT. PLACED ON LEFT SIDE. WILL TURN RIGHT AND SUPINE THRU THE NIGHT WILL CONTINUE TO MONITOR.
[2019-07-22] MEDS ORDERED: TPN PER PHARMACY IV NR ×8 (20:00)
[2019-07-22] MEDS: NOREPINEPHRINE 8 MG/250ML KIT 250 ML IV SCH (20:50)
--- NOTE | 2019-07-22 22:00 | NUR ---
PT'S DAUGHTER "ROHIT", AT BEDSIDE , QUESTIONS REGARDING PT STATUS AND POSSIBLE TRANSFER TO ANOTHER FACILITY ADDRESSED.
--- NOTE | 2019-07-22 22:30 | NUR ---
Respiratory note: VENOUS BLOOD GAS DRAWN PER DR. DEGROOT'S ORDER, RESULTS REPORTED TO RN.
--- NOTE | 2019-07-22 23:00 | NUR ---
SANA METHOD C.O/C.I DONE - CO - 4.1, CI - 2.4, MIXED VENOUG GAS 65.4
[2019-07-23] VITALS (99 sets, daily range): BP systolic 34–183; BP diastolic 11–183
[2019-07-23] MEDS: IPRATROPIUM BROM 0.5 MG/2.5ML INH SOL NEB SCH ×4 (00:06→18:22)
[2019-07-23] MEDS: ALBUTEROL SULF 2.5 MG/0.5ML(0.5%) NEB SOLN NEB SCH ×4 (00:07→18:22)
--- NOTE | 2019-07-23 00:30 | NUR ---
AUGMENTED PRESSURES 70'S - 80'S. MEANS 60'S. HR 80'S, AFIB/A-FLUTTER. IABP CONTINUES AT 1:1. WILL RESTART LEVOPHED AT 2 MCG/MIN.
[2019-07-23] MEDS: NOREPINEPHRINE 8 MG/250ML KIT 250 ML IV SCH (00:55)
[2019-07-23] MEDS: InsuLIN REG 1unit/0.01ml Soln (100units/ml) SC SCH ×4 (01:05→18:02)
[2019-07-23] MEDS: fentaNYL Drip 2500mCg/250mlNS 250 ML IV SCH ×2 (03:13→15:11)
[2019-07-23] MEDS: FUROSEMIDE INJECTION 100 MG in D5W 5% 90 ML IV SCH (03:13)
--- NOTE | 2019-07-23 03:35 | NUR ---
MOVING UPPER AND LOWER EXTREMITIES SPONTANEOUSLY. FOLLOWS NO COMMANDS
[2019-07-23 03:39] LABS: Basophils # (auto) 0.1 uL; Basophils % (auto) 0.8 % (0.0-2.0); Eosinophils # (auto) 0.3 uL; Eosinophils % (auto) 4.5 % (0.0-7.0); Hematocrit 40.2 % (41.0-53.0); Hemoglobin 13.6 g/dL (13.5-17.5); Lymphocytes # (auto) 1.2 uL; Lymphocytes % (auto) 17.5 % (10.0-50.0); Mean Corpuscular Hgb Conc. 33.8 g/dL (32.0-36.0); Mean Corpuscular Volume 94.5 fL (80.0-100.0); Monocytes % (auto) 14.7 % (0.0-12.0); Neutrophils # (auto) 4.4 uL; Neutrophils % (auto) 62.5 % (37.0-80.0); Nucleated Red Blood Cells % 0.1 %; Platelet Count (auto) 67 10^3/uL (140-450); Red Blood Cells 4.25 10^6/uL (4.5-5.90); Red Cell Distribution Width 16.3 % (11.8-14.3); White Blood Cell 7.1 10^3/uL (4.4-10.8)
[2019-07-23 04:03] LABS: INR 1.4 (0.9-1.15); Partial Thromboplastin Time 58.9 sec (23.64-32.05)
[2019-07-23 04:10] LABS: Albumin 1.9 g/dL (3.4-5.0); Calcium 7.7 mg/dL (8.5-10.1); Magnesium 1.7 mg/dL (1.6-2.6); Potassium 3.1 mmol/L (3.5-5.1)
[2019-07-23 04:11] LABS: BUN/Creatinine Ratio 14.7; Phosphorus 3.7 mg/dL (2.5-4.90)
[2019-07-23 04:13] LABS: Bilirubin, Total 9.1 mg/dL (0.2-1.0); Total Protein 6.7 g/dL (6.4-8.2)
--- NOTE | 2019-07-23 05:30 | NUR ---
INCREASED ECTOPY NOTED THIS A.M, AWAITING LAB RESULTS
[2019-07-23] MEDS: ACCU-CHEK COMFORT CURVE STRIP VI SCH ×4 (06:13→17:57)
[2019-07-23] MEDS: CLINDAMYCIN 600MG IV 50 ML IV SCH ×3 (06:15→22:29)
[2019-07-23] MEDS: DICYCLOMINE HCL 10 MG CAP GT SCH (06:15)
--- NOTE | 2019-07-23 06:22 | NUR ---
SPOKE TO KARUNA LINTON REGARDING K+ 3.1 AND MAG 1.7, ORDERS RECEIVED, WILL INITIATE.
[2019-07-23] MEDS ORDERED: MAGNESIUM SULFATE 1GM/100ML 100 ML IV ONE ×2 (06:26→06:30)
[2019-07-23] MEDS ORDERED: POTASSIUM CHL 20MEQ/100ML 100 ML IV ONE (06:26)
[2019-07-23] MEDS: POTASSIUM CHL 20MEQ/100ML 100 ML IV SCH ×2 (06:30→07:35)
[2019-07-23] MEDS: AMIODARONE HCL 900 MG in DEXTROSE 500 ML IV SCH (06:40)
--- NOTE | 2019-07-23 07:24 | NUR ---
REPORT GIVEN TO JOCE ROMEO
[2019-07-23] MEDS: MIDAZOLAM DRIP 50 mg/50mL 50 ML IV SCH ×2 (08:48→15:04)
--- NOTE | 2019-07-23 09:10 | NUR ---
Resumed care at 0715, orders reviewed and ongoing assessments being done. Remains intubated and sedated. Does withdraw to touch and frowns when rendering care. 8Fr. 50ml IABP remains in place (to left groin) and functioning properly, no signs of bleeding or hematoma at insertion site. Frequency remains 1:1 with maximum augmentation. Cardiac rhythm, AFIB/AFLUTTER with frequent ectopy (PVC's). Remains on Dobutamine at a fix rate of 2.5 mcg/kg/min for hemodynamic stability. Levophed also infusing and titrating as appropriate. PA catheter in place, measured at 85 cm at the hub. Measuring hemodynamics Q4 hr (CO, CI, WEDGE). Core temperature measuring 100.1, applied ice packs and cool compress to the forehead. Continues with persistent hiccups and administering medication as scheduled (Dicyclomine HCL).
[2019-07-23] MEDS: SACUBITRIL-VALSARTAN 24mg/26mg TAB PO SCH ×2 (10:00→22:00)
[2019-07-23] MEDS: ALLOPURINOL 100 MG TAB PO SCH (10:04)
[2019-07-23] MEDS: NEOMYCIN-BACITRACIN-POLYM UNITDOSE PKG TOP OINT TOP SCH (10:04)
[2019-07-23] MEDS: PANTOPRAZOLE 40 MG/10 ML VIAL INJ IV SCH (10:05)
[2019-07-23] MEDS: HEPARIN DRIP/D5W 100UNITS/ML 250 ML IV SCH (10:19)
[2019-07-23] MEDS ORDERED: MILRINONE 20MG/100ML 100 ML IV ONE (10:55)
[2019-07-23] MEDS ORDERED: MILRINONE 4 MG in SODIUM CHL 0.9% 50 ML IV ONE (11:00)
[2019-07-23] MEDS: MILRINONE 20MG/100ML 100 ML IV SCH (11:30)
[2019-07-23] MEDS ORDERED: PROMETHAZINE HCL 25 MG/ML 1ML IV PRN (12:00)
[2019-07-23] MEDS ORDERED: DIGOXIN (250MCG/ML) 2 ML AMPULE IV ONE (12:00)
--- NOTE | 2019-07-23 12:27 | NUR ---
Nutrition Follow-Up Note Wt. 66.5 kg Pt. continues to be intubated and sedated at this time. Receives nutrition support through PN at goal rate 67 mL/Hr. Continues with pressors for hemodynamic stability support. Estimated needs based on CBW 67.7 kg-for intubated pts in ICU; Re-calculate PRN 1640 kcal (PSU 2002) vs. 4209-1051 kcal (27-30 kcal/kg for wt gain promotion) 100-115 g protein (1.5-1.7 g/kg) Labs: ALT 120H, ALT 299H (LFT's trending down), K 3.1L, Glu 159H, Ca 7.7L, Bili 9.1H, ALB 1.9L Skin: Alex 14, high risk GI: last BM unknown; pt. does not have BM since admission, Gastric drainage 100 mL x 24 hrs per documentations PES: Altered nutrition related lab values r/t hepatic dysfunction and acute/chronic medical conditions aeb severely elev LFT's, hypoalb (ongoing) Monitor: TPN intake/tolerance, BG levels <180 mg/dL, weights, labs, GI. F/U HR 2-3 days. Recommendations: 1) Continue nutrition support through PPN as tolerated at goal rate established by provider to meet >75% estimated needs. 2) IL not recommended d/t elevated LFT's (trending down)
[2019-07-23] MEDS: DOBUTamine 1000MCG/ML 250 ML IV SCH (12:59)
--- NOTE | 2019-07-23 13:11 | NUR ---
Had contacted Dr. Lowe at 1055 to discuss plan of care. New orders noted and initiated. Dr. Lowe in unit at 1140. Discussed condition, reviewed data, medications and plan of care. Daughter Sulema at bedside when he rounded. Per Dr. Lowe will try to wean of Levophed gtt. Okay to maintain mean IABP pressure >60. Milrinone; initiated bolus at 1119 and maintenance infusion at 1130, following protocol. Changed medication for hiccups, will administer Thorazine IV when pharmacy verifies medication. Per Dr. Lowe once hiccups are controlled and not bucking ventilator will wean off sedation and assess for weaning parameters.
--- NOTE | 2019-07-23 13:52 | NUR ---
Dr. Garcia, Hospitalist and Dr. Early, Fire Crew Worker both in unit to round on the patient. Discussed condition and plan of care. Both agreed to discontinue Lasix gtt. Also agreed with Dr. Lowe to maintain IABP mean pressure >60. Per Dr. Sharath padilla to record cardiac output using Sudhakar's formula once a day. Daughter Sulema at bedside and was able to speak with them. Addendum: 07/23/19 at 1702 by Mariza Gonzáles RN RN Per Dr. Garcia will not attempt weaning parameters today. She will assess in the am and decide then.
[2019-07-23] MEDS ORDERED: chlorproMAZINE HCL 25 MG/1 ML AMP IV PRN (14:00)
[2019-07-23] MEDS: POTASSIUM EFFERVESENT TAB 25 MEQ GT SCH ×2 (14:08→22:29)
[2019-07-23] MEDS: chlorproMAZINE INECTION 25 MG in SODIUM CHL 0.9% 50 ML IV PRN ×3 (14:30→21:30)
[2019-07-23] MEDS: MAGNESIUM SULFATE 1GM/100ML 100 ML IV SCH ×2 (15:05→15:38)
--- NOTE | 2019-07-23 17:02 | NUR ---
Dr. Early, drawer maker in unit at 1550. Discussed once again goals for titrating off Levophed gtt. Okay to maintain IABP mean pressure >60 as well of MAP >60. Levophed weaned down to 3 mcg/min. Improved CO and CI 5.3/3.0 & SVR 996. Addendum: 07/23/19 at 1917 by Mariza Gonzáles RN RN Per Dr. Early continue to hold Entresto, need to wean off Levophed first before administering.
[2019-07-23] MEDS: FUROSEMIDE 40 MG/4 ML VIAL IV SCH (18:02)
[2019-07-23] MEDS ORDERED: TPN PER PHARMACY IV NR ×9 (20:00)
[2019-07-24] VITALS (107 sets, daily range): BP systolic 19–113; BP diastolic -7–67
[2019-07-24] MEDS: MILRINONE 20MG/100ML 100 ML IV SCH ×2 (00:08→11:25)
[2019-07-24] MEDS: ALBUTEROL SULF 2.5 MG/0.5ML(0.5%) NEB SOLN NEB SCH ×4 (00:12→18:10)
[2019-07-24] MEDS: IPRATROPIUM BROM 0.5 MG/2.5ML INH SOL NEB SCH ×4 (00:12→18:10)
[2019-07-24] MEDS: MIDAZOLAM DRIP 50 mg/50mL 50 ML IV SCH (01:30)
[2019-07-24 03:52] LABS: Basophils # (auto) 0.1 uL; Basophils % (auto) 0.8 % (0.0-2.0); Eosinophils # (auto) 0.7 uL; Hematocrit 34.5 % (41.0-53.0); Hemoglobin 11.8 g/dL (13.5-17.5); Lymphocytes # (auto) 1.1 uL; Lymphocytes % (auto) 16.1 % (10.0-50.0); Mean Corpuscular Hemoglobin 32.4 pg (28.0-32.0); Mean Corpuscular Hgb Conc. 34.3 g/dL (32.0-36.0); Mean Corpuscular Volume 94.4 fL (80.0-100.0); Monocytes # (auto) 0.9 uL; Monocytes % (auto) 14.1 % (0.0-12.0); Neutrophils # (auto) 3.9 uL; Platelet Count (auto) 85 10^3/uL (140-450); Red Blood Cells 3.65 10^6/uL (4.5-5.90); Red Cell Distribution Width 16.6 % (11.8-14.3); White Blood Cell 6.7 10^3/uL (4.4-10.8)
[2019-07-24 04:01] LABS: INR 1.35 (0.9-1.15); Partial Thromboplastin Time 54.3 sec (23.64-32.05)
[2019-07-24 04:09] LABS: Albumin 1.6 g/dL (3.4-5.0); BUN/Creatinine Ratio 13.7; Calcium 7.4 mg/dL (8.5-10.1); Magnesium 2.1 mg/dL (1.6-2.6); Potassium 4.4 mmol/L (3.5-5.1)
[2019-07-24 04:11] LABS: Bilirubin, Total 8.7 mg/dL (0.2-1.0); Phosphorus 2.1 mg/dL (2.5-4.90)
[2019-07-24] MEDS: chlorproMAZINE INECTION 25 MG in SODIUM CHL 0.9% 50 ML IV PRN (04:42)
[2019-07-24] MEDS: POTASSIUM EFFERVESENT TAB 25 MEQ GT SCH ×3 (05:36→22:39)
[2019-07-24] MEDS: CLINDAMYCIN 600MG IV 50 ML IV SCH ×3 (05:37→22:39)
[2019-07-24] MEDS: FUROSEMIDE 40 MG/4 ML VIAL IV SCH ×2 (05:37→18:05)
[2019-07-24] MEDS: InsuLIN REG 1unit/0.01ml Soln (100units/ml) SC SCH ×4 (06:04→18:17)
[2019-07-24] MEDS: ACCU-CHEK COMFORT CURVE STRIP VI SCH ×4 (06:04→18:05)
--- NOTE | 2019-07-24 08:40 | NUR ---
Resumed care at 0715, orders reviewed and ongoing assessments being done. Remains intubated and sedated. Does withdraw to touch and frowns when rendering care, slightly moving hands and feet. 8Fr. 50ml IABP remains in place (to left groin) and functioning properly, no signs of bleeding or hematoma at insertion site. Frequency remains 1:1 with maximum augmentation. Cardiac rhythm, A-FIB with frequent ectopy (PVC's). Remains on Dobutamine at a fix rate of 2.5 mcg/kg/min for hemodynamic stability. Levophed and Milrinone also infusing and titrating as appropriate. PA catheter (7Fr) in place, measured at 85 cm at the hub. Measuring hemodynamics Q4 hr (CO, CI, WEDGE). Unable to wedge times 2 attempts, will try later.
[2019-07-24] MEDS: PANTOPRAZOLE 40 MG/10 ML VIAL INJ IV SCH (09:44)
[2019-07-24] MEDS: DIGOXIN (250MCG/ML) 2 ML AMPULE IV SCH (09:45)
[2019-07-24] MEDS: SACUBITRIL-VALSARTAN 24mg/26mg TAB PO SCH ×2 (09:45→22:00)
[2019-07-24] MEDS: ALLOPURINOL 100 MG TAB PO SCH (09:45)
[2019-07-24] MEDS: NEOMYCIN-BACITRACIN-POLYM UNITDOSE PKG TOP OINT TOP SCH (09:46)
[2019-07-24] MEDS: AMIODARONE HCL 900 MG in DEXTROSE 500 ML IV SCH (10:12)
[2019-07-24] MEDS: HEPARIN DRIP/D5W 100UNITS/ML 250 ML IV SCH (11:30)
--- NOTE | 2019-07-24 11:42 | NUR ---
Dr. Garcia was in at 0915 to round. Discussed condition and plan of care. Will wean off sedation and consider CPAP trial if appropriate today. Versed was weaned off at 1010 am and FentaNLY decreased to 100mcg/hour. Not opening eyes yet but gag and cough more pronounced. Has converted to NSR, continues to have frequent PVC's, ECG done. Dr. Alvares, focusing machine operator in to round. Daughter Sulema at bedside.
[2019-07-24] MEDS ORDERED: SODIUM PHOSPHATES 10 MEQ in SODIUM CHL 0.9% 100 ML IV ONE (12:00)
[2019-07-24] MEDS ORDERED: SODIUM PHOSPHATES 20 MEQ in SODIUM CHL 0.9% 100 ML IV ONE (13:45)
[2019-07-24] MEDS: DOBUTamine 1000MCG/ML 250 ML IV SCH (13:55)
--- NOTE | 2019-07-24 14:25 | NUR ---
Dr. Lowe, policy loan calculator in to round at 1235. Discussed condition and plan of care. Data and medications reviewed. Had had difficulty in wedging PA catheter. Dr. Lowe attempted and measured 19. Changed IABP frequency to 1:3 at 1240. If tolerates and PAD pressures do not elevate and stay below 26 may consider removal of of IABP. Contacted Dr. Lowe at 1350. Reported hemodynamics, PAD has remained within 17-19. Will be in to pull IABP. Arrived to unit at 1406. Reviewed medications. Still on Heparin infusion at 500units/hour. Will discontinue and return in 2 hours to remove IABP. Place back on 1:1 frequency for maximum support. Has not woken up since sedation turned off at 1010 am. Continues to with draw to touch but not following any direction or opening eyes yet.
[2019-07-24] MEDS ORDERED: LORazepam 2MG/ML-1ML VIAL IV ONE (15:00)
[2019-07-24] MEDS ORDERED: MIDAZOLAM HCL 5 MG/ML-1ML VIAL IV ONE (15:00)
--- NOTE | 2019-07-24 18:42 | NUR ---
Dr. Early, electrical engineering technician was in to remove IABP. IABP removed at 1630 without incident and manual pressure was held by him for approximately 25 minutes. Area cleansed and Surigicel Snow (absorbable hemostat) applied to puncture site and dressing applied. No bleeding or hematoma since removal of IABP. Good palpable pulses to left foot and warm to touch. Continue with Amiodarone, Dobutamine, Levophed and Milrinone for hemodynamic stability. Will wean off Dobutamine infusion first as appropriate per Dr. Lowe. Still asleep and has not awoken since sedation turned off at 1010 am. Positive cough and gag remain intact. Hiccups still persistent but not as evident. Daughter Sulmea back in room visiting.
[2019-07-24] MEDS ORDERED: TPN PER PHARMACY IV NR ×9 (20:00)
[2019-07-24] MEDS: NOREPINEPHRINE 8 MG/250ML KIT 250 ML IV SCH (20:50)
[2019-07-25] VITALS (123 sets, daily range): BP systolic 44–109; BP diastolic 12–60
[2019-07-25] MEDS: IPRATROPIUM BROM 0.5 MG/2.5ML INH SOL NEB SCH ×4 (00:53→18:42)
[2019-07-25] MEDS: ALBUTEROL SULF 2.5 MG/0.5ML(0.5%) NEB SOLN NEB SCH ×4 (00:53→18:42)
[2019-07-25] MEDS: MILRINONE 20MG/100ML 100 ML IV SCH ×2 (02:54→09:38)
[2019-07-25 03:51] LABS: Basophils # (auto) 0 uL; Basophils % (auto) 0.6 % (0.0-2.0); Eosinophils # (auto) 0.6 uL; Eosinophils % (auto) 8.8 % (0.0-7.0); Hematocrit 34.9 % (41.0-53.0); Hemoglobin 11.9 g/dL (13.5-17.5); Lymphocytes # (auto) 0.8 uL; Lymphocytes % (auto) 12.8 % (10.0-50.0); Mean Corpuscular Hemoglobin 32.2 pg (28.0-32.0); Mean Corpuscular Volume 94.8 fL (80.0-100.0); Monocytes # (auto) 1.1 uL; Monocytes % (auto) 16.6 % (0.0-12.0); Neutrophils % (auto) 61.2 % (37.0-80.0); Platelet Count (auto) 132 10^3/uL (140-450); Red Blood Cells 3.68 10^6/uL (4.5-5.90); Red Cell Distribution Width 16.6 % (11.8-14.3); White Blood Cell 6.5 10^3/uL (4.4-10.8)
[2019-07-25 04:04] LABS: INR 1.31 (0.9-1.15); Partial Thromboplastin Time 41.4 sec (23.64-32.05)
[2019-07-25 04:07] LABS: Albumin 1.7 g/dL (3.4-5.0); Calcium 7.5 mg/dL (8.5-10.1); Magnesium 2.2 mg/dL (1.6-2.6); Potassium 4.9 mmol/L (3.5-5.1)
[2019-07-25 04:12] LABS: BUN/Creatinine Ratio 17.7; Bilirubin, Total 8.7 mg/dL (0.2-1.0); Phosphorus 3.3 mg/dL (2.5-4.90); Total Protein 6.8 g/dL (6.4-8.2)
[2019-07-25] MEDS: POTASSIUM EFFERVESENT TAB 25 MEQ GT SCH ×3 (05:51→22:20)
[2019-07-25] MEDS: CLINDAMYCIN 600MG IV 50 ML IV SCH ×3 (05:51→22:19)
[2019-07-25] MEDS: FUROSEMIDE 40 MG/4 ML VIAL IV SCH (05:51)
[2019-07-25] MEDS: InsuLIN REG 1unit/0.01ml Soln (100units/ml) SC SCH ×4 (06:29→17:47)
[2019-07-25] MEDS: ACCU-CHEK COMFORT CURVE STRIP VI SCH ×4 (06:29→17:47)
--- NOTE | 2019-07-25 06:55 | NUR ---
Respiratory note: RECEIVED PATIENT ON V21 V200 VENT ORALLY INTUBATED WITH AN 8.0 ETT SECURED VIA JULIANN AT THE 26CM MARKING AT THE LIP, AND MECHANICALLY VENTILATED WITH THE CHARTED SETTINGS. SPO2 100%, LUNG SOUNDS DIM T/O, NO SECRETIONS WHEN SUCTIONED. SKIN IS WARM/DRY TO THE TOUCH AND IS INTACT NEAR JULIANN SITE. THERE IS AN OGT IN PLACE AND SECURED TO THE ETT, A TRIPLE LUMEN CENTRAL LINE IS PLACED IN THE LEFT IJ, AND NO EDEMA NOTED. THERE IS A SWAN-ALYSIA CATHETER IN PLACE MEASURING PA PRESSURES, PA PRESSURES ELEVATED AT THIS TIME 61/18. NO NEW AM CXR TO ASSESS AT THIS TIME. PATIENT IS UNRESPONSIVE TO BOTH VERBAL/TACTILE STIMULI AND IS SEDATED ON A FENTANYL DRIP. HE IS RESTING COMFORTABLY AND TOLERATING VENT WELL, NO CHANGES MADE. VENT PLUGGED INTO RED OUTLET AND ALL ALARMS ARE SET AND AUDIBLE. WILL CONTINUE TO ASSESS PATIENT WELL VENTILATOR FUNCTION. Mobile Authentication-[employer] RUN INLINE.
--- NOTE | 2019-07-25 07:30 | NUR ---
ASSESS- PT. LYING IN BED ON VENT SIZE # 8.0 ET, 26 AT THE LIP, AC-14, TV-450, PEEP-5, FIO2-30%. LUNGS COARSE TRAVIS. INSPIRATORY AND EXPIRATORY. PT. HAS GAG/COUGH REFLEX. PUPILS 2 AND BRISK TRAVIS. ON FENTANYL GTT. AT 100 MCG. RESPONDS TO PAINFUL/TACTILE STIMULI. NO MOVEMENT OF EXTREMITIES SEEN. TLC LT. IJ INTACT. LT. FEMORAL SWAN IN PLACE, DSG. D/I. MILIRONE GTT. AT 0.375 MCG., AMIODARONE GTT. AT 0.5 MG./MIN., DOBUTAMINE GTT. AT 2.5 MCG. ABD. SOFT, FLAT. BOWEL SOUNDS HYPOACTIVE ALL FOUR QUADRANTS. OGT IN PLACE, CLAMPED. PT. IS NPO. ON TPN AT 75 CC./HR. RADIAL PULSES STRONG, PALPABLE TRAVIS. PEDAL PULSES STRONG, PALPABLE TRAVIS. 1 PLUS PITTING EDEMA LE TRAVIS. OPEN WOUND AT TIP OF PENIS, OPEN TO AIR.
--- NOTE | 2019-07-25 09:00 | NUR ---
CORE TEMP 100.2. PLACED ICE PACKS TRAVIS. AXILLA. REMOVED SHEET. MONITORING TEMP.
[2019-07-25] MEDS: HEPARIN DRIP/D5W 100UNITS/ML 250 ML IV SCH (09:30)
[2019-07-25] MEDS: PANTOPRAZOLE 40 MG/10 ML VIAL INJ IV SCH (09:37)
[2019-07-25] MEDS: ALLOPURINOL 100 MG TAB PO SCH (09:37)
[2019-07-25] MEDS: DIGOXIN (250MCG/ML) 2 ML AMPULE IV SCH (09:38)
[2019-07-25] MEDS: SACUBITRIL-VALSARTAN 24mg/26mg TAB PO SCH (10:00)
--- NOTE | 2019-07-25 10:00 | NUR ---
DR. VACA Provider/Hospitalist at bedside. GAVE UPDATE ON PT. NEW ORDERS RECEIVED.
[2019-07-25] MEDS: MIDAZOLAM DRIP 50 mg/50mL 50 ML IV SCH (10:51)
[2019-07-25] MEDS: NEOMYCIN-BACITRACIN-POLYM UNITDOSE PKG TOP OINT TOP SCH (10:51)
--- NOTE | 2019-07-25 11:30 | NUR ---
DAUGHTER VISITING AT THE .
--- NOTE | 2019-07-25 12:00 | NUR ---
CORE TEMP DECREASED TO 99.7.
[2019-07-25] MEDS: NOREPINEPHRINE 8 MG/250ML KIT 250 ML IV SCH (13:00)
--- NOTE | 2019-07-25 13:25 | NUR ---
DR. CRISTINA Provider/Hospitalist at bedside. GAVE UPDATE ON PT. NEW ORDERS RECEIVED.
[2019-07-25] MEDS ORDERED: Glucerna 1.2 Cal 1Liter BOTTLE GT SCH (13:30)
--- NOTE | 2019-07-25 14:13 | NUR ---
Called/paged Dr. VELÁSQUEZ called re:. Waiting for call back. Continue care.
[2019-07-25] MEDS: fentaNYL Drip 2500mCg/250mlNS 250 ML IV SCH ×2 (14:19→18:55)
--- NOTE | 2019-07-25 14:32 | NUR ---
DR. VELÁSQUEZ Provider/Hospitalist at bedside. GAVE UPDATE ON PT. NEW ORDERS RECEIVED.
[2019-07-25] MEDS: AMIODARONE HCL 900 MG in DEXTROSE 500 ML IV SCH (15:00)
--- NOTE | 2019-07-25 15:40 | NUR ---
OGT placement verified by aspiration of stomach contents, residual check, or air auscultation. Tube feeding started per MD order. STARTED GLUCERNA 1.2 AT 10 CC/HR. WITH GOAL RATE OF 30 CC/HR.
--- NOTE | 2019-07-25 17:45 | NUR ---
TITRATING LEVOPHED GTT. DOWN SLOWLY 0.5 MCG. AT A TIME TO KEEP MAP >[address] VELÁSQUEZ. MAP IN THE 60'S. MONITORING BP. SR, HR 60'S-70'S.
[2019-07-25] MEDS ORDERED: TPN*HIGH CONC* PER PHARMACY IV NR ×10 (20:00)
[2019-07-25] MEDS ORDERED: TPN PER PHARMACY IV NR ×9 (20:00)
[2019-07-26] VITALS (123 sets, daily range): BP systolic 28–129; BP diastolic 8–78
[2019-07-26] MEDS: IPRATROPIUM BROM 0.5 MG/2.5ML INH SOL NEB SCH ×5 (00:23→23:57)
[2019-07-26] MEDS: ALBUTEROL SULF 2.5 MG/0.5ML(0.5%) NEB SOLN NEB SCH ×5 (00:23→23:57)
--- NOTE | 2019-07-26 00:37 | NUR ---
TF RESIDUAL - 150 ML TF HELD
[2019-07-26] MEDS: MILRINONE 20MG/100ML 100 ML IV SCH ×3 (00:43→20:39)
[2019-07-26 04:14] LABS: Basophils # (auto) 0.1 uL; Basophils % (auto) 1.1 % (0.0-2.0); Eosinophils # (auto) 0.7 uL; Eosinophils % (auto) 11.3 % (0.0-7.0); Hematocrit 32.8 % (41.0-53.0); Hemoglobin 11.2 g/dL (13.5-17.5); Lymphocytes # (auto) 0.9 uL; Lymphocytes % (auto) 14.3 % (10.0-50.0); Mean Corpuscular Hemoglobin 32.2 pg (28.0-32.0); Mean Corpuscular Hgb Conc. 34.2 g/dL (32.0-36.0); Mean Corpuscular Volume 94.3 fL (80.0-100.0); Monocytes % (auto) 15.5 % (0.0-12.0); Neutrophils # (auto) 3.7 uL; Neutrophils % (auto) 57.8 % (37.0-80.0); Nucleated Red Blood Cells % 0.1 %; Platelet Count (auto) 189 10^3/uL (140-450); Red Blood Cells 3.48 10^6/uL (4.5-5.90); Red Cell Distribution Width 16.4 % (11.8-14.3); White Blood Cell 6.4 10^3/uL (4.4-10.8)
[2019-07-26 04:30] LABS: INR 1.29 (0.9-1.15); Partial Thromboplastin Time 39.9 sec (23.64-32.05)
[2019-07-26 04:39] LABS: Calcium 7.8 mg/dL (8.5-10.1); Potassium 4.2 mmol/L (3.5-5.1)
[2019-07-26 04:45] LABS: BUN/Creatinine Ratio 23.4
[2019-07-26 04:46] LABS: Albumin 1.6 g/dL (3.4-5.0); Bilirubin, Total 9.8 mg/dL (0.2-1.0); Magnesium 2.2 mg/dL (1.6-2.6); Phosphorus 3.3 mg/dL (2.5-4.90); Total Protein 6.7 g/dL (6.4-8.2)
[2019-07-26] MEDS: POTASSIUM EFFERVESENT TAB 25 MEQ GT SCH (05:53)
[2019-07-26] MEDS: CLINDAMYCIN 600MG IV 50 ML IV SCH ×3 (05:56→21:49)
[2019-07-26] MEDS: InsuLIN REG 1unit/0.01ml Soln (100units/ml) SC SCH ×4 (06:02→17:36)
[2019-07-26] MEDS: ACCU-CHEK COMFORT CURVE STRIP VI SCH ×4 (06:02→17:35)
--- NOTE | 2019-07-26 07:25 | NUR ---
ASSESS- PT. LYING IN BED ON VENT SIZE #8.0 ET, 26 AT THE LIP, AC-14, TV-450, PEEP-5, FIO2-30%. LUNGS COARSE TRAVIS. INSPIRATORY AND EXPIRATORY. PT. HAS GAG/COUGH REFLEX. PUPILS 3 AND BRISK TRAVIS. RESPONDS TO PAINFUL/TACTILE STIMULI. MOVING LE TRAVIS., WEAK, MOVING UPPER EXTREMITIES TRAVIS., WEAK. TRAVIS. HAND MITTENS IN PLACE TO PREVENT PULLING OF TUBES. PT. CONTINUOUSLY COUGHING, ANXIOUS. FENTANYL GTT. AT 100 MCG. CURRENTLY, WILL INCREASE. TLC LT. IJ INTACT. TPN AT 67 CC/HR. ABD. SOFT, FLAT. BOWEL SOUNDS HYPOACTIVE ALL FOUR QUADRANTS. NO EMESIS. OGT IN PLACE. TF OFF, RESIDUAL 60 CC. RADIAL PULSES STRONG, PALPABLE TRAVIS. PEDAL PULSES STRONG, PALPABLE TRAVIS. 1 PLUS ANKLE EDEMA LE TRAVIS. F/C TO GRAVITY WITH CLEAR DK. YELLOW URINE. SWAN LT. GROIN INTACT WITH DSG. D/I. LEVOPHED GTT. AT 6 MCG. TO KEEP MAP >60. MAP IN THE 70'S CURRENTLY. AMIODARONE GTT. AT 0.5 MG./MIN. SR, HR 70'S-80'S WITH PAC'S AND PVC'S. MILIRONE AT 0.375 MCG.
[2019-07-26] MEDS: ALLOPURINOL 100 MG TAB PO SCH (09:42)
[2019-07-26] MEDS: DIGOXIN (250MCG/ML) 2 ML AMPULE IV SCH (09:42)
[2019-07-26] MEDS: fentaNYL Drip 2500mCg/250mlNS 250 ML IV SCH ×2 (09:43→20:32)
[2019-07-26] MEDS: NEOMYCIN-BACITRACIN-POLYM UNITDOSE PKG TOP OINT TOP SCH (09:57)
[2019-07-26] MEDS: PANTOPRAZOLE 40 MG/10 ML VIAL INJ IV SCH (09:58)
--- NOTE | 2019-07-26 10:00 | NUR ---
MAP HAS BEEN IN THE 60'S-70'S. TITRATING LEVOPHED GTT. DOWN SLOWLY TO KEEP MAP >[address] VELÁSQUEZ. MONITORING BP.
--- NOTE | 2019-07-26 10:37 | NUR ---
DR. VACA Provider/Hospitalist at bedside. GAVE UPDATE ON PT. NEW ORDERS RECEIVED.
--- NOTE | 2019-07-26 10:40 | NUR ---
DR. JACKMAN Provider/Hospitalist at bedside. GAVE UPDATE ON PT. NEW ORDERS RECEIVED.
--- NOTE | 2019-07-26 11:27 | NUR ---
MAP IN THE 60'S-70'S. TITRATED OFF LEVOPHED GTT. CONTINUING TO MONITOR BP.
--- NOTE | 2019-07-26 12:00 | NUR ---
VISITOR AT THE BS.
[2019-07-26] MEDS: MIDAZOLAM DRIP 50 mg/50mL 50 ML IV SCH (12:13)
[2019-07-26] MEDS: METOCLOPRAMIDE HCL 5MG/ml INJ 2ml VIAL IV SCH ×2 (13:31→21:49)
--- NOTE | 2019-07-26 14:00 | NUR ---
MAP REMAINS IN THE UPPER 60'S TO 70'S. SBP 100'S TO ONE TENS. REMAINS OFF LEVOPHED GTT.
--- NOTE | 2019-07-26 15:30 | NUR ---
Family updated on pt status Family of SAVMADIE updated on patient's status and condition. All questions and concerns addressed. DAUGHTER verbalized understanding. VISITING AT THE BS.
--- NOTE | 2019-07-26 17:30 | NUR ---
PT. CONTINUOUSLY COUGHING ON THE VENT, MOVING ARMS AND LEGS TRAVIS. PLACED TRAVIS. HAND MITTENS ON PT. TO PREVENT PULLING OF TUBES. INCREASED FENTANYL GTT. TO 200 MCG.
--- NOTE | 2019-07-26 18:15 | NUR ---
PT. NO LONGER COUGHING. RESTING WITH EYES CLOSED ON VENT. NO SIGNS OF DISTRESS.
[2019-07-26] MEDS: AMIODARONE HCL 900 MG in DEXTROSE 500 ML IV SCH (18:57)
[2019-07-26] MEDS ORDERED: TPN PER PHARMACY IV NR ×10 (20:00)
--- NOTE | 2019-07-26 20:00 | NUR ---
WOUND ASSESSMENT DTI NOTED ON LT.EAR. WILL TAKE PHOTO FOR REFERENCE.
[2019-07-26] MEDS: NOREPINEPHRINE 8 MG/250ML KIT 250 ML IV SCH (20:50)
[2019-07-26] MEDS: LORazepam 2MG/ML-1ML VIAL IV PRN (21:01)
--- NOTE | 2019-07-26 21:05 | NUR ---
ATIVAN GIVEN PATIENT IS RESTLESS, COUGHING, MOVES ALL EXTREMITIES, AND NOT FOLLOWING COMMANDS. ATIVAN 2 MG IV PRN IS GIVEN.
[2019-07-26] MEDS ORDERED: PROPOFOL 100 ML IV ONE (21:37)
--- NOTE | 2019-07-26 21:45 | NUR ---
returned call Dr. VELÁSQUEZ returned call, updated on patient status and reason for call(high pa pressure, high wedge and no blood return from pa line). No orders received. Continue care.
--- NOTE | 2019-07-26 21:45 | NUR ---
DIPRIVAN STARTED PATIENT IS RESTLESS, COUGHING, MOVES ALL EXTREMITIES, AND NOT FOLLOWING COMMANDS. DIPRIVAN DRIP STARTED AT 5MCG/KG/MIN.
[2019-07-26] MEDS: PROPOFOL 100 ML IV SCH (21:49)
[2019-07-26] MEDS: FAMOTIDINE (10MG/ML) 2ML VL IV SCH (21:49)
--- NOTE | 2019-07-26 22:00 | NUR ---
Central Line Dressing Changes Central line dressing change done with a sterile technique. Cleansed with chloraprep scrub/betadine. No sutures noted, external length 5cm. Stat lock, and bio-patch applied. Occlusive dressing applied.
[2019-07-27] VITALS (100 sets, daily range): BP systolic 18–183; BP diastolic 3–182
--- NOTE | 2019-07-27 | NUR ---
CARDIAC OUT OUT CO NOT DONE.UNABLE TO DO WEDGE, PA WAVE FORM AND CVP WAVE FORM ARE NOT GOOD. AWARE. Addendum: 07/27/19 at 2316 by Miranda Pinon RN error on charting cardiac out put
[2019-07-27] MEDS: ACCU-CHEK COMFORT CURVE STRIP VI SCH ×5 (00:06→23:58)
[2019-07-27 03:40] LABS: Basophils # (auto) 0.1 uL; Basophils % (auto) 1.4 % (0.0-2.0); Eosinophils # (auto) 0.7 uL; Eosinophils % (auto) 9.2 % (0.0-7.0); Hematocrit 32.3 % (41.0-53.0); Hemoglobin 11.2 g/dL (13.5-17.5); Lymphocytes # (auto) 1.4 uL; Lymphocytes % (auto) 17.6 % (10.0-50.0); Mean Corpuscular Hemoglobin 32.4 pg (28.0-32.0); Mean Corpuscular Hgb Conc. 34.5 g/dL (32.0-36.0); Mean Corpuscular Volume 93.9 fL (80.0-100.0); Monocytes # (auto) 1.2 uL; Monocytes % (auto) 14.8 % (0.0-12.0); Neutrophils # (auto) 4.6 uL; Platelet Count (auto) 215 10^3/uL (140-450); Red Blood Cells 3.44 10^6/uL (4.5-5.90); Red Cell Distribution Width 16.6 % (11.8-14.3)
[2019-07-27 04:00] LABS: Albumin 1.6 g/dL (3.4-5.0); Potassium 3.3 mmol/L (3.5-5.1)
--- NOTE | 2019-07-27 04:10 | NUR ---
Patient bathe/linen change Patient given complete bath. Skin integrity assessed for any changes. Linens changed. Patient repositioned for comfort.
[2019-07-27 04:11] LABS: Calcium 7.9 mg/dL (8.5-10.1)
[2019-07-27 04:38] LABS: BUN/Creatinine Ratio 22.4; Bilirubin, Total 12.9 mg/dL (0.2-1.0); Phosphorus 3.3 mg/dL (2.5-4.90); Pre Albumin 6.7 mg/dL (20.0-40.0); Total Protein 6.5 g/dL (6.4-8.2)
[2019-07-27] MEDS: CLINDAMYCIN 600MG IV 50 ML IV SCH ×3 (06:07→22:02)
[2019-07-27] MEDS: METOCLOPRAMIDE HCL 5MG/ml INJ 2ml VIAL IV SCH ×3 (06:07→22:02)
[2019-07-27] MEDS: InsuLIN REG 1unit/0.01ml Soln (100units/ml) SC SCH ×5 (06:13→23:58)
[2019-07-27] MEDS: ALBUTEROL SULF 2.5 MG/0.5ML(0.5%) NEB SOLN NEB SCH ×3 (06:15→18:28)
[2019-07-27] MEDS: IPRATROPIUM BROM 0.5 MG/2.5ML INH SOL NEB SCH ×3 (06:15→18:28)
--- NOTE | 2019-07-27 06:19 | NUR ---
Respiratory note: RECEIVED PATIENT ON V21 V200 VENT ORALLY INTUBATED WITH AN 8.0 ETT SECURED VIA JULIANN AT THE 26CM MARKING AT THE LIP, AND MECHANICALLY VENTILATED WITH THE CHARTED SETTINGS. SPO2 100%, LUNG SOUNDS DIM T/O, NO SECRETIONS WHEN SUCTIONED. SKIN IS WARM/DRY TO THE TOUCH AND IS INTACT NEAR JULIANN SITE. THERE IS AN OGT IN PLACE AND SECURED TO THE ETT, A TRIPLE LUMEN CENTRAL LINE IS PLACED IN THE LEFT IJ, AND NON PITTING EDEMA NOTED IN THE UPPER EXTREMITIES. THERE IS A SWAN-ALYSIA CATHETER IN PLACE MEASURING PA PRESSURES 35/15. NO NEW AM CXR TO ASSESS AT THIS TIME. PATIENT IS UNRESPONSIVE TO BOTH VERBAL/TACTILE STIMULI AND IS SEDATED ON PROPOFOL AND FENTANYL DRIPS. HE IS RESTING COMFORTABLY AND TOLERATING VENT WELL, NO CHANGES MADE. VENT PLUGGED INTO RED OUTLET AND ALL ALARMS ARE SET AND AUDIBLE. WILL CONTINUE TO ASSESS PATIENT WELL VENTILATOR FUNCTION. [employer] [place] [employer] INLINE.
--- NOTE | 2019-07-27 08:00 | NUR ---
ATTEMPTED TO WEAN PATIENT OFF SEDATION FOR CPAP TRIAL, PATIENT BECAME AGITATED, HEART RATE IN THE 110'S, RESPIRATIONS 33-40 AND WAILING ARMS. SEDATION TURNED BACK ON, CALL OUT TO MD TO MAKE AWARE.
--- NOTE | 2019-07-27 08:57 | NUR ---
Respiratory note: AM CXR ASSESSED AND IT SHOWS ETT IN SATISFACTORY POSITION SITTING APPROX 2.5CM ABOVE THE JEAN MARIE; NO INDICATION TO ADJUST TUBE AT THIS TIME.
[2019-07-27] MEDS: fentaNYL Drip 2500mCg/250mlNS 250 ML IV SCH ×2 (09:02→20:29)
[2019-07-27] MEDS: POTASSIUM CHL 20MEQ/100ML 100 ML IV SCH ×2 (09:07→09:50)
--- NOTE | 2019-07-27 09:10 | NUR ---
Family updated on pt status Family of SAVMADIE updated on patient's status and condition. All questions and concerns addressed. DAUGHTER verbalized understanding. VISITING AT THE BS.
[2019-07-27] MEDS: MILRINONE 20MG/100ML 100 ML IV SCH ×2 (09:31→23:51)
--- NOTE | 2019-07-27 09:50 | NUR ---
DR. BLAS HERE TO SEE PATIENT. SEE MD NOTES AND EMR FOR NEW ORDERS.
--- NOTE | 2019-07-27 10:00 | NUR ---
DR. BLAS STATED TO TURN SEDATION BACK ON FOR PATIENT AND ATTEMPT CPAP IN AM DUE TO PATIENT NOT TOLERATING CPAP TRIAL THIS AM.
[2019-07-27] MEDS: FAMOTIDINE (10MG/ML) 2ML VL IV SCH ×2 (10:04→22:01)
[2019-07-27] MEDS: DIGOXIN (250MCG/ML) 2 ML AMPULE IV SCH (10:04)
[2019-07-27] MEDS: ALLOPURINOL 100 MG TAB PO SCH (10:04)
[2019-07-27] MEDS: NEOMYCIN-BACITRACIN-POLYM UNITDOSE PKG TOP OINT TOP SCH (10:04)
--- NOTE | 2019-07-27 11:00 | NUR ---
CARDIAC OUT OUT CO NOT DONE.UNABLE TO DO WEDGE, PA WAVE FORM AND CVP WAVE FORM ARE NOT GOOD. AWARE.
[2019-07-27] MEDS: PROPOFOL 100 ML IV SCH ×2 (13:09→22:03)
[2019-07-27] MEDS: MIDAZOLAM DRIP 50 mg/50mL 50 ML IV SCH (14:19)
--- NOTE | 2019-07-27 14:59 | NUR ---
Family updated on pt status Family of MADIE ANG updated on patient's status and condition. All questions and concerns addressed. DAUGHTER verbalized understanding. VISITING AT THE BED SIDE.
[2019-07-27] MEDS ORDERED: DexMEDEtomidine 400 MCG in D5W 5% 96 ML IV SCH (18:57)
[2019-07-27] MEDS ORDERED: TPN PER PHARMACY IV NR ×10 (20:00)
[2019-07-27] MEDS ORDERED: POTASSIUM CHL 20MEQ/100ML 100 ML IV ONE (20:00)
[2019-07-27] MEDS: AMIODARONE HCL 900 MG in DEXTROSE 500 ML IV SCH (20:49)
[2019-07-27] MEDS: NOREPINEPHRINE 8 MG/250ML KIT 250 ML IV SCH (20:50)
--- NOTE | 2019-07-27 23:36 | NUR ---
BLOOD GAS BLOOD DRAWN FROM PA CATHER PORT, AND BLOOD GAS DONE ORDERED BY .
[2019-07-28] VITALS (108 sets, daily range): BP systolic 29–156; BP diastolic 13–111
[2019-07-28] MEDS: IPRATROPIUM BROM 0.5 MG/2.5ML INH SOL NEB SCH ×4 (00:57→18:54)
[2019-07-28] MEDS: ALBUTEROL SULF 2.5 MG/0.5ML(0.5%) NEB SOLN NEB SCH ×4 (00:57→18:54)
--- NOTE | 2019-07-28 04:00 | NUR ---
FEEDING TURNED OFF FOR C PAP TRIAL.
--- NOTE | 2019-07-28 05:00 | NUR ---
MORNING CARE IS GIVEN
[2019-07-28] MEDS: InsuLIN REG 1unit/0.01ml Soln (100units/ml) SC SCH ×4 (05:35→23:42)
[2019-07-28] MEDS: ACCU-CHEK COMFORT CURVE STRIP VI SCH ×4 (05:35→23:42)
[2019-07-28] MEDS: CLINDAMYCIN 600MG IV 50 ML IV SCH ×2 (06:11→14:45)
[2019-07-28] MEDS: METOCLOPRAMIDE HCL 5MG/ml INJ 2ml VIAL IV SCH ×3 (06:11→21:56)
[2019-07-28 06:23] LABS: Basophils # (auto) 0.1 uL; Basophils % (auto) 1.2 % (0.0-2.0); Eosinophils # (auto) 0.8 uL; Eosinophils % (auto) 11.3 % (0.0-7.0); Hemoglobin 11.1 g/dL (13.5-17.5); Lymphocytes # (auto) 1.4 uL; Lymphocytes % (auto) 19.7 % (10.0-50.0); Mean Corpuscular Hemoglobin 32.7 pg (28.0-32.0); Mean Corpuscular Hgb Conc. 34.8 g/dL (32.0-36.0); Monocytes # (auto) 1.2 uL; Monocytes % (auto) 16.5 % (0.0-12.0); Neutrophils # (auto) 3.8 uL; Neutrophils % (auto) 51.3 % (37.0-80.0); Platelet Count (auto) 266 10^3/uL (140-450); Red Cell Distribution Width 16.8 % (11.8-14.3); White Blood Cell 7.3 10^3/uL (4.4-10.8)
--- NOTE | 2019-07-28 06:30 | NUR ---
MILIRINONE TURNED OFF ORDERED BY .
--- NOTE | 2019-07-28 06:35 | NUR ---
CPAP TRIAL PATIENT IS AWAKE, ALERT , FOLLOWING COMMANDS BUT RESTLESS. RT PLACED PATIENT ON CPAP.
--- NOTE | 2019-07-28 06:35 | NUR ---
PLACED PT ON CPAP DUE TO PT FULLY AWAKE AND BECOMING ANXIOUS OFF SEDATION. PT ABLE TO SQUEEZE MY HAND AND FOLLOW COMMANDS. NOC RN NOTIFY PT ON CPAP TRIAL AT THIS TIME.
[2019-07-28 06:46] LABS: Albumin 1.7 g/dL (3.4-5.0); BUN/Creatinine Ratio 16.8; Calcium 7.7 mg/dL (8.5-10.1); Potassium 3.9 mmol/L (3.5-5.1)
[2019-07-28 06:58] LABS: Bilirubin, Total 15.2 mg/dL (0.2-1.0); Phosphorus 3.7 mg/dL (2.5-4.90); Total Protein 6.7 g/dL (6.4-8.2)
--- NOTE | 2019-07-28 07:15 | NUR ---
RT WAS PAGED: PT IS HAVING INCREASED WORK OF BREATHING AND USING ACCESSORY MUSCLES, SPO2 DECREASED TO 80'S. PLACED PT ON AC ON 100% FIO2. WILL TITRATE FIO2. AGUEDA KEITH MADE AWARE.
--- NOTE | 2019-07-28 07:20 | NUR ---
BACK ON AC MODE RT PLACED PATIENT BACK ON AC MODE. PATIENT IS TACHYPNEIC, TACHYCARDIC AND HAVING ABDOMINAL BREATHING. LUNGS SOUND CRACKLES. WILL INFORM MD.
--- NOTE | 2019-07-28 07:30 | NUR ---
REPORT: REPORT RECEIVED FROM [facility] RN TO RESUME CARE OF PT.
--- NOTE | 2019-07-28 07:30 | NUR ---
Hospitalist returned call [employer] MACHINE OPERATOR returned call, updated on patient status and reason for call, orders received for lasix 20 mg iv x1 Continue care.
--- NOTE | 2019-07-28 07:32 | NUR ---
RT: PAGED RT TO NOTIFY THAT PT NOT TOLERATING CPAP AT TIME, RR 45, 02 SATS 81%, HR 119 AND ACCESSORY MUSCLE USE.
[2019-07-28] MEDS ORDERED: FUROSEMIDE 20 MG/2 ML VIAL ONE (07:33)
[2019-07-28] MEDS ORDERED: FUROSEMIDE 20 MG/2 ML VIAL IV ONE ×2 (07:45→20:45)
--- NOTE | 2019-07-28 08:01 | NUR ---
FAMILY: DAUGHTER IN AT BEDSIDE. UPDATED THAT PATIENT WAS PLACED ONTO CPAP BUT NOT TOLERATING AT TIME. NO LONGER FOLLOWING COMMANDS, TACHYPNEIC WITH A RATE OF 37-42, HEART RATE SINUS TACH 111-119, ABDOMINAL BREATHING, USING ACCESSORY MUSCLES AND O2 SATS 82-86%. RT WAS AWARE AND DID PLACE PT BACK ONTO AC MODE OF AC12,TV450,PEEP5,100% O2. WILL CONTINUE TO MONITOR.
--- NOTE | 2019-07-28 08:41 | NUR ---
SEDATION/DIPRIVAN: PT REMAINING TO BE TACHYPNEIC WITH RATE OF 38-42, 02 SATS 84% AND ACCESSORY MUSCLE USE. STARTED DIPRIVAN AT 20MCG/KG/MIN FOR SEDATION WHILE ON VENTILATOR. WILL CONTINUE TO MONITOR.
--- NOTE | 2019-07-28 09:08 | NUR ---
SEDATION: PROPOFOL INCREASED TO 30MCG/KG/MIN PT NOT VENTILATING AND REMAINING TO HAVE ACCESSORY MUSCLE USE AND RATE OF 32-39 ON VENTILATOR. EL LOADER AWARE AND AT BEDSIDE.
--- NOTE | 2019-07-28 09:20 | NUR ---
SEDATION: DECREASED DIPRIVAN TO 20MCG/KG/MIN. BLOOD PRESSURE DECREASED FROM 102/62 AND NOW 82/49. WILL CONTINUE TO MONITOR.
--- NOTE | 2019-07-28 09:50 | NUR ---
SEDATION: DECREASED DIPRIVAN AGAIN TO 15MCG/KG/MIN. SEDATION DECREASING HEART RATE TO 66 AND BLOOD PRESSURE 77/39. WILL NOTIFY
--- NOTE | 2019-07-28 09:55 | NUR ---
DECREASED FIO2 80%, SPO2 96%
[2019-07-28] MEDS: DIGOXIN (250MCG/ML) 2 ML AMPULE IV SCH (10:28)
[2019-07-28] MEDS: ALLOPURINOL 100 MG TAB PO SCH (10:28)
--- NOTE | 2019-07-28 10:30 | NUR ---
DECREASED FIO2 TO 60%, SPO2 94%.
[2019-07-28] MEDS: MIDAZOLAM DRIP 50 mg/50mL 50 ML IV SCH (10:44)
--- NOTE | 2019-07-28 10:44 | NUR ---
MD VISIT: DR. JACKMAN IN AT BEDSIDE. UPDATED ON PT STATUS AND AWARE OF CURRENT FINDINGS. AWARE THAT PT FAILED CPAP THIS AM PATIENT TACHYPNEIC AND DECREASED O2 SATS, TUBE FEEDING TURNED OFF PRIOR AND MD WOULD LIKE PT TO STAY NPO. AWARE THAT DIPRIVAN RUNNING AND BLOOD PRESSURE DECREASED. OK TO START ON VERSED GTT FOR COMFORT. AWARE OF ALL LABS, HEMODYNAMIC STABILITY AND STATUS AT TIME. SPOKE TO DAUGHTER AT BEDSIDE IN DETAIL AND UPDATED ON POSSIBILITY OF TRACHEOSTOMY AND PEG TUBE. MD DID FULLY DISCUSS WITH FAMILY AND ALL RISKS AND QUESTIONS ADDRESSED. CONTINUE CARE AND TO CARRY OUT ORDERS.
--- NOTE | 2019-07-28 11:00 | NUR ---
MD VISIT: DR. SCHULTE IN AT BEDSIDE. UPDATED ON PT FULL STATUS AND SPOKE TO FAMILY. ALL QUESTIONS AND CONCERNS ADDRESSED AND NO NEW ORDERS RECEIVED AT TIME.
--- NOTE | 2019-07-28 11:10 | NUR ---
VERSED: INCREASED VERSED GTT TO 8MG/HR. PATIENT RESP. RATE REMAINS 29-31 AND STILL USING ACCESSORY MUSCLE USE. WILL CONTINUE TO MONITOR.
[2019-07-28] MEDS: NEOMYCIN-BACITRACIN-POLYM UNITDOSE PKG TOP OINT TOP SCH (11:39)
[2019-07-28] MEDS: FAMOTIDINE (10MG/ML) 2ML VL IV SCH ×2 (11:42→21:56)
--- NOTE | 2019-07-28 12:10 | NUR ---
MD VISIT: EL LINTON FOR DR. DEGROOT IN AT BEDSIDE. UPDATED ON PT STATUS AND OK WITH VERSED. OK TO POSSIBLY REMOVE SWAN-ALYSIA CATHETER LATER THIS AFTERNOON BUT WILL CONFIRM WHEN READY TO REMOVE. SPOKE TO DR. SOTOMAYOR AND AWARE OF SWAN-ALYSIA HEMODYNAMIC RESULTS. PLAN TO CARRY OUT ORDERS.
[2019-07-28] MEDS ORDERED: chlorproMAZINE HCL 25 MG/1 ML AMP IM ONE (12:15)
--- NOTE | 2019-07-28 12:22 | NUR ---
DECREASED FIO2 TO 40%, SPO2 96%.
--- NOTE | 2019-07-28 12:25 | NUR ---
SPUTUM SAMPLE COLLECTED AND SEND TO LAB FOR ANALYSIS.
[2019-07-28 12:55] LABS: Urine Bacteria MANY /hpf (None Seen); Urine Blood 2+ /uL (Negative); Urine Hyaline Cast MANY /lpf (0 - 2); Urine Mucus FEW (None Seen); Urine Specific Gravity 1.014 (1.001-1.035); Urine WBC 182 /hpf (0 - 3)
--- NOTE | 2019-07-28 13:05 | NUR ---
VERSED: INCREASED VERSED GTT TO 10MG/HR. PATIENT RESP. RATE REMAINS 27-29 AND STILL USING ACCESSORY MUSCLE USE. TOLERATING VERSED GTT AT TIME, BLOOD PRESSURE 101/51, HR OF 87. WILL CONTINUE TO MONITOR.
--- NOTE | 2019-07-28 13:35 | NUR ---
VERSED: INCREASED VERSED GTT TO 13MG/HR. PATIENT RESP. RATE REMAINS 27-29 AND STILL USING ACCESSORY MUSCLE USE. TOLERATING VERSED GTT AT TIME, BLOOD PRESSURE 97/48, HR OF 88. WILL CONTINUE TO MONITOR.
--- NOTE | 2019-07-28 13:35 | NUR ---
FAMILY: FAMILY LEFT BEDSIDE. CONTACT INFORMATION IN CHART FOR REFERENCE. WILL CALL IF ANY CHANGES.
--- NOTE | 2019-07-28 15:30 | NUR ---
LORRI/PRACTITIONER NOTIFICATION: SPOKE TO EL LINTON REGARDING SWAN-ALYSIA REMOVAL. AWARE THAT PORT WAVEFORM FOR CVP AND PA NOT ACCURATE. DID OBTAIN BASELINE AND SVR 1109. Addendum: 07/28/19 at 1606 by Michaela Boone RN OK TO REMOVE PA LINE IF SVR WITHIN NORMAL RANGE. SVR IN NORMAL RANGE. WILL PLAN TO REMOVE.
--- NOTE | 2019-07-28 17:15 | NUR ---
TEMP: TEMP INCREASED TO 101.8 OR[address] CO[address] MEASURES IN PLACE.
[2019-07-28] MEDS ORDERED: ACETAMINOPHEN 650 mg PER 20 mL UD ONE (17:20)
--- NOTE | 2019-07-28 17:27 | NUR ---
PAGE: PAGED HOSPITALIST TO NOTIFY OF TEMP OF 101.8. BLOOD CULTURES PLACED, SPUTUM SENT AND URINE SENT TODAY. WILL SEND PA CATHETER FOR C&S. WAITING FOR CALL BACK FOR POSSIBLE ANTIBIOTICS.
--- NOTE | 2019-07-28 18:05 | NUR ---
VERSED: DECREASED VERSED TO 10MG/HR. HR DECREASING TO 59-62. SINUS BRADYCARDIA. WILL CONTINUE TO MONITOR. Addendum: 07/28/19 at 1956 by Michaela Boone RN A-FIB, NOT SINUS BRADYCARDIA
--- NOTE | 2019-07-28 18:15 | NUR ---
SWAN-ALYSIA REMOVAL: AFTER RECEIVING ORDERS AND ALL RESULTS GIVEN, OK TO DC SWAN. CHECKED CXR AND VERIFIED SWAN WAS IN OK POSITION TO REMOVE. REMOVED SWAN, CUT TIP USING STERILE PROCEDURE AND SENT TO LAB. CATHETER FULLY INTACT, NO SIGNIFICANT BLEEDING NOTED AT INSERTION SITE, NO ECTOPY OR ABNORMALITIES ON REMOVAL AND PT TOLERATED WELL.
--- NOTE | 2019-07-28 18:50 | NUR ---
UPDATE: NOTED THAT PATIENT STARTED SUSTAINING BRADYCARDIA, RATE OF 48-52. THROUGHOUT SHIFT THUS FAR, HEART RATE RANGING FROM 52-89 BUT DID NOT MAINTAIN BRADYCARDIA. DR. Latrice CHAHAL MADE AWARE. WANTING TO START DOBUTAMINE GTT AND CARRY OUT ADDITIONAL ORDERS. AWARE THAT TEMP OF 102.4 MAX. NEW ORDERS TO CHANGE ABX. PLAN TO CARRY OUT ALL ORDERS.
[2019-07-28] MEDS ORDERED: DOBUTamine 1000MCG/ML 250 ML IV SCH (19:09)
--- NOTE | 2019-07-28 19:15 | NUR ---
Assumed care, full assessment done; see interventions.
[2019-07-28] MEDS: NOREPINEPHRINE 8 MG/250ML KIT 250 ML IV SCH (19:41)
--- NOTE | 2019-07-28 19:52 | NUR ---
MD VISIT: DR. Latrice CHAHAL IN AT BEDSIDE. UPDATED ON PT STATUS AND AWARE OF CURRENT FINDINGS. AWARE OF ALL UPDATED STATUS AND NEW ORDERS RECEIVED. PLAN TO CARRY OUT.
--- NOTE | 2019-07-28 19:55 | NUR ---
DAUGHTER: CALLED DAUGHTER TO INFORM THAT PATIENT HEART RATE DECREASING AND THAT BLOOD PRESSURE DECREASING THROUGHOUT SHIFT THUS FAR. WILL BE ON HER WAY.
[2019-07-28] MEDS ORDERED: DOPamine 1600MCG/ML D5W 250 ML IV ONE (19:58)
[2019-07-28] MEDS: DOPamine 1600MCG/ML D5W 250 ML IV SCH ×2 (19:58→20:22)
--- NOTE | 2019-07-28 19:58 | NUR ---
HR afib in the 40s, SBP low 80s. Sedation paused at this time; levophed and dopamine started per protocol. Connected patient to crash cart.
[2019-07-28] MEDS ORDERED: [UNRECOGNIZED DRUG - OTHER] IV NR ×10 (20:00)
[2019-07-28] MEDS ORDERED: SODIUM PHOSPHATES IV NR ×10 (20:00)
[2019-07-28] MEDS ORDERED: SODIUM CHLORIDE IV NR ×10 (20:00)
[2019-07-28] MEDS ORDERED: POTASSIUM CHLORIDE IV NR ×10 (20:00)
--- NOTE | 2019-07-28 20:14 | NUR ---
MD CALL: SPOKE TO DR. VELÁSQUEZ AND UPDATED ON PT FULL STATUS. AWARE THAT TEMP 102.4 RECTALLY, AWARE OF BRADYCARDIA, HYPOTENSION, AND CHANGE IN STATUS THROUGHOUT END OF SHIFT. NEW ORDERS RECEIVED AND PLAN TO CARRY OUT.
--- NOTE | 2019-07-28 20:25 | NUR ---
Patient converted to sinus rhythm in the 70s at this time. SBP stable, will wean levophed first per Dr. Early. Labs and ABG drawn.
[2019-07-28] MEDS ORDERED: SODIUM CHLORIDE 0.9% 250 ML IV ONE (20:30)
[2019-07-28] MEDS ORDERED: VANCOMYCIN 1GM/250ML 250 ML IV ONE (20:30)
[2019-07-28] MEDS ORDERED: VANCOMYCIN PER PHARMACY 0 MG IV SCH (20:30)
[2019-07-28] MEDS ORDERED: cefTRIAXone 1GM/50ML D5W 50 ML IV ONE (20:30)
--- NOTE | 2019-07-28 20:30 | NUR ---
Spoke with Dr. Early, updated on hemodynamics and labs. New orders received.
[2019-07-28 20:53] LABS: Albumin 1.6 g/dL (3.4-5.0); BUN/Creatinine Ratio 20.5; Calcium 8.1 mg/dL (8.5-10.1); Potassium 4.7 mmol/L (3.5-5.1)
[2019-07-28 21:04] LABS: Bilirubin, Total 18.5 mg/dL (0.2-1.0)
[2019-07-28 21:06] LABS: Basophils # (auto) 0.1 uL; Basophils % (auto) 0.7 % (0.0-2.0); Eosinophils # (auto) 0.3 uL; Eosinophils % (auto) 1.7 % (0.0-7.0); Hematocrit 36.6 % (41.0-53.0); Lymphocytes # (auto) 1.2 uL; Lymphocytes % (auto) 7.5 % (10.0-50.0); Mean Corpuscular Hemoglobin 31.3 pg (28.0-32.0); Mean Corpuscular Hgb Conc. 32.8 g/dL (32.0-36.0); Mean Corpuscular Volume 95.6 fL (80.0-100.0); Monocytes # (auto) 1.5 uL; Monocytes % (auto) 9.1 % (0.0-12.0); Neutrophils # (auto) 13.3 uL; Platelet Count (auto) 296 10^3/uL (140-450); Red Blood Cells 3.83 10^6/uL (4.5-5.90); Red Cell Distribution Width 17.8 % (11.8-14.3); White Blood Cell 16.4 10^3/uL (4.4-10.8)
[2019-07-28] MEDS: VANCOMYCIN 1GM/250ML 250 ML IV SCH (21:56)
--- NOTE | 2019-07-28 22:00 | NUR ---
Patient maxed on versed and fentanyl at this time, accessory muscle use noted. RR high 30-low 40s. Restarted propofol now that SBP stable in the 110s.
[2019-07-28] MEDS: PROPOFOL 100 ML IV SCH (22:07)
[2019-07-29] VITALS (105 sets, daily range): BP systolic 85–108; BP diastolic 37–68
[2019-07-29] MEDS: IPRATROPIUM BROM 0.5 MG/2.5ML INH SOL NEB SCH ×4 (00:31→18:29)
[2019-07-29] MEDS: ALBUTEROL SULF 2.5 MG/0.5ML(0.5%) NEB SOLN NEB SCH ×4 (00:31→18:30)
--- NOTE | 2019-07-29 01:00 | NUR ---
Levophed titrated off at this time. MAP maintaining >60 with dopamine infusing per IV spreadsheet.
[2019-07-29 04:06] LABS: Basophils # (auto) 0.1 uL; Basophils % (auto) 0.6 % (0.0-2.0); Eosinophils # (auto) 0.2 uL; Eosinophils % (auto) 1.4 % (0.0-7.0); Hematocrit 33.8 % (41.0-53.0); Hemoglobin 11.5 g/dL (13.5-17.5); Lymphocytes # (auto) 0.9 uL; Lymphocytes % (auto) 6.2 % (10.0-50.0); Mean Corpuscular Hemoglobin 32.3 pg (28.0-32.0); Mean Corpuscular Hgb Conc. 34.1 g/dL (32.0-36.0); Monocytes # (auto) 1.3 uL; Monocytes % (auto) 9.2 % (0.0-12.0); Neutrophils # (auto) 11.6 uL; Neutrophils % (auto) 82.6 % (37.0-80.0); Platelet Count (auto) 297 10^3/uL (140-450); Red Blood Cells 3.56 10^6/uL (4.5-5.90); Red Cell Distribution Width 17.8 % (11.8-14.3)
[2019-07-29 04:25] LABS: Albumin 1.5 g/dL (3.4-5.0); Calcium 7.9 mg/dL (8.5-10.1); Potassium 3.4 mmol/L (3.5-5.1)
[2019-07-29 04:28] LABS: BUN/Creatinine Ratio 20.4; Magnesium 2.4 mg/dL (1.6-2.6)
[2019-07-29 04:39] LABS: Bilirubin, Total 18.6 mg/dL (0.2-1.0); Phosphorus 3.2 mg/dL (2.5-4.90); Total Protein 6.6 g/dL (6.4-8.2)
[2019-07-29] MEDS: InsuLIN REG 1unit/0.01ml Soln (100units/ml) SC SCH ×3 (05:30→18:11)
[2019-07-29] MEDS: ACCU-CHEK COMFORT CURVE STRIP VI SCH ×3 (05:30→18:11)
[2019-07-29] MEDS: METOCLOPRAMIDE HCL 5MG/ml INJ 2ml VIAL IV SCH (05:31)
--- NOTE | 2019-07-29 06:19 | NUR ---
Patient's daughter at bedside, update provided.
--- NOTE | 2019-07-29 07:45 | NUR ---
OPENING NOTE Report received from Dee ROMEO, care assumed. Patient intubated on ventilator and under sedation at this time. Physical assessment performed. No distress or pain noted at this time. Patient intermittently stacking breaths on ventilator. Respirations are unlabored, lung sounds clear anteriorly. Cough and gag present, pupils reactive. Sinus rhythm, vitals stable. Pulses palpable radial and pedal bilateral. SCD's on bilateral lower extremities. Extremities off loaded on pillows. See skin/wound assessment. Bed locked in lowest position.
--- NOTE | 2019-07-29 08:24 | NUR ---
Respiratory note: FIO2 HAS BEEN DECREASED TO 30%. RN AWARE. POX CURRENTLY 97%.
[2019-07-29] MEDS ORDERED: POTASSIUM CHL 20MEQ/100ML 100 ML IV ONE ×2 (08:30→10:30)
[2019-07-29] MEDS: fentaNYL Drip 2500mCg/250mlNS 250 ML IV SCH (08:51)
--- NOTE | 2019-07-29 08:58 | NUR ---
SEDATION Diprivan titrated off for Cpap trial today. Patient still asleep, breathing over set rate on ventilator. No distress noted, vital signs stable at this time.
[2019-07-29] MEDS: NOREPINEPHRINE 8 MG/250ML KIT 250 ML IV SCH (09:30)
[2019-07-29] MEDS: cefTRIAXone 1GM/50ML D5W 50 ML IV SCH (09:55)
[2019-07-29] MEDS ORDERED: ENOXAPARIN SOD 40 MG/0.4 ML SYRINGE SC SCH (10:00)
--- NOTE | 2019-07-29 10:00 | NUR ---
Family updated on pt status Family of MADIE ANG updated on patient's status and condition. All questions and concerns addressed. Sulema verbalized understanding.
[2019-07-29] MEDS: FAMOTIDINE (10MG/ML) 2ML VL IV SCH ×2 (10:01→22:30)
[2019-07-29] MEDS: ALLOPURINOL 100 MG TAB PO SCH (10:02)
[2019-07-29] MEDS: NEOMYCIN-BACITRACIN-POLYM UNITDOSE PKG TOP OINT TOP SCH (10:02)
--- NOTE | 2019-07-29 10:20 | NUR ---
Hospitalist at bedside at bedside assessing patient. MD reviewing chart, drips, labs, and imaging. MD speaking with patients daughter about plan of care. All questions and concerns addressed.
--- NOTE | 2019-07-29 10:28 | NUR ---
Provider at bedside at bedside. reviewing patients chart and labs. New orders received.
--- NOTE | 2019-07-29 10:58 | NUR ---
SEDATION All sedation titrated off for cpap trail.
--- NOTE | 2019-07-29 11:29 | NUR ---
Nutrition Follow-Up Notes Wt. 67.5 kg today. Pt's intubated, non-sedated, noted for possible CPAP trial today. Pt's NPO, remains on TPN@ 71 ml/hr providing 1720 kcal, 90 gms pro and 1360 NPCs. Pt with adequate PN support aeb current PN infusion meets 86% to 95% if est caloric needs and 78% to 90% of est protein needs. Noted pt;s to receive tonight another TPN @ 71 ml/hr providing 1680 kcal, 80 gms pro and 1360 NPCs. Estimated needs based on CBW 67.7 kg-for intubated pts in ICU; Re-calculate PRN 1640 kcal (PSU 2002) vs. 9521-3392 kcal (27-30 kcal/kg for wt gain promotion) 100-115 g protein (1.5-1.7 g/kg) Labs: Na 135 L, K 3.4 L, Ca 7.9 L, Tot manuel 18.6 H, ALT 256 H, ALT 204H , Alb 1.5 L, Prealb 6.7 L, Trig 173 H Skin: Alex 11, high risk, pt's L ear pressure ulcer per RN doc. Pls refer to lpc's notes for further details re: tx plans, GI: Last BM unknown; pt had 100 ml Gastric drainage output this morning per RN documentations PES: Altered nutrition related lab values r/t hepatic dysfunction and acute/chronic medical conditions aeb severely elev LFT's, hypoalb (ongoing) Increased nutrient needs r/t current medical condition aeb intubated, sedated, severe hypoalbuminemia, NPO with PN support. Will continue to monitor NPO status, PN tolerance, pertinent labs, skin status and weight trends. F/u in 2 to 3 days. Additional Recommendation: 1.) If still NPO, continue PN support that meets at least 75% of est nutrient needs prn. 2.) Advance gradually to oral diet when medically appropriate. 3.) Refer to RD for further nutrition educ. and weight monitoring upon discharge. 4.) Continue current plan of care.
--- NOTE | 2019-07-29 11:30 | NUR ---
Provider at bedside at bedside. reviewing patients chart and labs. New orders received.
[2019-07-29] MEDS: DOPamine 1600MCG/ML D5W 250 ML IV SCH (12:00)
--- NOTE | 2019-07-29 14:35 | NUR ---
WOUND CARE NOTE: Weekly reevaluation by wound care team. Patient has been on skin integrity rounding due to intubation and low Alex score. Patient seen with bedside RN, Arabella. Patient's skin assessed. Sacrum is red blanching and intact. Skin is dry and flaky. Applied moisturizer and ZGURAD to skin. RECOMMENDATIONS: Nursing to continue with previously order skin/wound care orders; wound care team to continue to follow while intubated and Alex <18.
--- NOTE | 2019-07-29 14:37 | NUR ---
WOUND CARE NOTE Would care nurse at bedside performing skin assessment. Jose care performed, skin dry/flakey. Lotion applied, new jose-pad and repositioned on side. Patient tolerated activity well.
--- NOTE | 2019-07-29 16:00 | NUR ---
ASSESSMENT Patient not waking up at this time. Patient attempted to move left hand briefly. I instructed patient to attempt to open eyes, and reorient. Patient unable to follow commands at this time. Patient grimacing during oral care. Tolerating ventilator with oxygen saturation 98%. No signs of pain or distress noted at this time.
[2019-07-29] MEDS: VANCOMYCIN 1GM/250ML 250 ML IV SCH (17:15)
--- NOTE | 2019-07-29 19:23 | NUR ---
REPORT Report given to Jenifer ROMEO, care endorsed.
[2019-07-29] MEDS ORDERED: TPN PER PHARMACY IV NR ×11 (20:00)
[2019-07-30] VITALS (58 sets, daily range): BP systolic 90–134; BP diastolic 39–78
[2019-07-30] MEDS: ACCU-CHEK COMFORT CURVE STRIP VI SCH ×4 (00:11→17:48)
[2019-07-30] MEDS: ALBUTEROL SULF 2.5 MG/0.5ML(0.5%) NEB SOLN NEB SCH ×4 (00:19→18:20)
[2019-07-30] MEDS: IPRATROPIUM BROM 0.5 MG/2.5ML INH SOL NEB SCH ×4 (00:19→18:20)
[2019-07-30 03:47] LABS: Basophils # (auto) 0.1 uL; Basophils % (auto) 0.7 % (0.0-2.0); Eosinophils # (auto) 0.6 uL; Eosinophils % (auto) 7.2 % (0.0-7.0); Hematocrit 34.8 % (41.0-53.0); Hemoglobin 11.8 g/dL (13.5-17.5); Lymphocytes # (auto) 0.9 uL; Lymphocytes % (auto) 11.1 % (10.0-50.0); Mean Corpuscular Hemoglobin 32.1 pg (28.0-32.0); Mean Corpuscular Hgb Conc. 33.9 g/dL (32.0-36.0); Mean Corpuscular Volume 94.9 fL (80.0-100.0); Monocytes # (auto) 0.9 uL; Monocytes % (auto) 11.9 % (0.0-12.0); Neutrophils # (auto) 5.3 uL; Neutrophils % (auto) 69.1 % (37.0-80.0); Platelet Count (auto) 360 10^3/uL (140-450); Red Blood Cells 3.67 10^6/uL (4.5-5.90); Red Cell Distribution Width 18.2 % (11.8-14.3); White Blood Cell 7.7 10^3/uL (4.4-10.8)
[2019-07-30 04:05] LABS: Albumin 1.5 g/dL (3.4-5.0); BUN/Creatinine Ratio 18.8; Calcium 8.3 mg/dL (8.5-10.1); Magnesium 2.2 mg/dL (1.6-2.6); Potassium 3.9 mmol/L (3.5-5.1)
[2019-07-30 04:19] LABS: Bilirubin, Total 18.4 mg/dL (0.2-1.0); Phosphorus 2.7 mg/dL (2.5-4.90); Total Protein 6.6 g/dL (6.4-8.2)
[2019-07-30] MEDS: InsuLIN REG 1unit/0.01ml Soln (100units/ml) SC SCH ×4 (05:53→17:48)
[2019-07-30] MEDS: ACETAMINOPHEN 650 mg PER 20 mL UD GT PRN (06:22)
--- NOTE | 2019-07-30 07:30 | NUR ---
ASSESS- PT. LYING IN BED ON VENT SIZE #8.0 ET, 26 AT THE LIP, AC-12, TV-450, PEEP-5, FIO2-30%. LUNGS WITH RHONCHI TRAVIS. INSPIRATORY AND EXPIRATORY. PT. HAS GAG/COUGH REFLEX. PUPIL 3 AND BRISK TRAVIS. ON FENTANYL GTT. AT 50 MCG. AND VERSED GTT. AT 4MG./HR. PT. IS VERY RESTLESS. MOVING ARMS TRAVIS. ALL OVER IN BED. TRAVIS. HAND MITTENS IN PLACE TO PREVENT PULLING OF TUBES. HR ONE TEENS, ST. RR MID 30'S. SBP 130'S-140'S. OGT IN PLACE, CLAMPED, MED. RECENTLY GIVEN. ABD. SOFT, FLAT. BOWELS SOUNDS HYPOACTIVE ALL FOUR QUADRANTS. F/V TO GRAVITY WITH CLEAR LT. LEO/ORANGE URINE. RADIAL PULSES STRONG, PALPABLE TRAVIS. PEDAL PULSES STRONG, PALPABLE TRAVIS. SCD'S TRAVIS. LE. TLC LT. IJ INTACT WITH CVP TO DISTAL PORT. DOPAMINE GTT. AT 3 MCG. TPN AT 70 CC/HR. PT. IS JAUNDICE. LT. GROIN WITH DSG. D/I, NO HEMATOMA, NO BRUISING, NO BLEEDING. LT. EAR WITH DTI OPEN TO AIR, RT. EAR WITH DTI OPEN TO AIR. TIP OF URETHA WITH OPEN WOUND, OPEN TO AIR.
[2019-07-30] MEDS: FAMOTIDINE (10MG/ML) 2ML VL IV SCH ×2 (09:32→22:00)
[2019-07-30] MEDS: cefTRIAXone 1GM/50ML D5W 50 ML IV SCH (09:33)
[2019-07-30] MEDS: NEOMYCIN-BACITRACIN-POLYM UNITDOSE PKG TOP OINT TOP SCH (09:33)
[2019-07-30] MEDS: ALLOPURINOL 100 MG TAB PO SCH (09:33)
--- NOTE | 2019-07-30 09:45 | NUR ---
DR. CARD Provider/Hospitalist at bedside.
--- NOTE | 2019-07-30 10:00 | NUR ---
HR DECREASED TO THE 60'S, SR WITH PAC'S AND PVC'S ON OCCASION. MAP MID 60'S. TITRATED DOPAMINE GTT. UP TO 4 MCG. MONITORING VSS.
[2019-07-30] MEDS: VANCOMYCIN 1GM/250ML 250 ML IV SCH (10:16)
--- NOTE | 2019-07-30 10:30 | NUR ---
Family updated on pt status Family of SAVMADIE updated on patient's status and condition. All questions and concerns addressed. DAUGHTER verbalized understanding. VISITING AT THE BS.
--- NOTE | 2019-07-30 10:40 | NUR ---
DR. JACKMAN Provider/Hospitalist at bedside. GAVE UPDATE ON PT. NEW ORDERS RECEIVED.
--- NOTE | 2019-07-30 12:00 | NUR ---
MAP HAS BEEN IN THE MID 60'S TO 70'S. HR 60'S SR WITH PVC'S AND PAC'S. ON DOPAMINE GTT. AT 5 MCG. CONTINUING TO MONITOR BP.
[2019-07-30] MEDS: ACETYLCYSTEINE 10 %(100MG/ML) SOL 4ML NEB SCH ×2 (12:24→18:20)
[2019-07-30] MEDS: MIDAZOLAM DRIP 50 mg/50mL 50 ML IV SCH (12:33)
[2019-07-30] MEDS: DOPamine 1600MCG/ML D5W 250 ML IV SCH ×2 (12:40→18:41)
[2019-07-30] MEDS: fentaNYL Drip 2500mCg/250mlNS 250 ML IV SCH (13:00)
--- NOTE | 2019-07-30 14:30 | NUR ---
PT. SEDATED ON VENT. RESTING WITH EYES CLOSED. NO SIGNS OF DISTRESS OR DISCOMFORT.
--- NOTE | 2019-07-30 18:00 | NUR ---
RECTAL TEMP 97.9. PLACED BLANKET ON PT.
--- NOTE | 2019-07-30 18:15 | NUR ---
DAUGHTER VISITING AT THE .
[2019-07-30 18:42] LABS: Hepatitis A Ab IgM Negative; Hepatitis B Core IgM Negative
[2019-07-30 18:43] LABS: Hepatitis B Surface Antigen Negative (Negative); Hepatitis C Antibody Negative (Negative)
[2019-07-30] MEDS ORDERED: TPN PER PHARMACY IV NR ×8 (20:00)
--- NOTE | 2019-07-30 20:00 | NUR ---
BS= 80; WILL CONT. TO MONITOR.
[2019-07-30] MEDS: NOREPINEPHRINE 8 MG/250ML KIT 250 ML IV SCH (20:50)
[2019-07-30] MEDS: PROPOFOL 100 ML IV SCH (21:27)
[2019-07-31] VITALS (81 sets, daily range): BP systolic 89–116; BP diastolic 39–78
[2019-07-31] MEDS: ACETYLCYSTEINE 10 %(100MG/ML) SOL 4ML NEB SCH ×4 (00:01→18:40)
[2019-07-31] MEDS: ALBUTEROL SULF 2.5 MG/0.5ML(0.5%) NEB SOLN NEB SCH ×4 (00:01→18:40)
[2019-07-31] MEDS: IPRATROPIUM BROM 0.5 MG/2.5ML INH SOL NEB SCH ×4 (00:01→18:40)
[2019-07-31 04:36] LABS: Calcium 8.4 mg/dL (8.5-10.1); Eosinophils # (auto) 0.7 uL; Nucleated Red Blood Cells % 0.1 %; Potassium 3.6 mmol/L (3.5-5.1); Red Cell Distribution Width 18.7 % (11.8-14.3); White Blood Cell 6.5 10^3/uL (4.4-10.8)
[2019-07-31 04:39] LABS: Albumin 1.5 g/dL (3.4-5.0); BUN/Creatinine Ratio 14.9; Basophils # (auto) 0.1 uL; Basophils % (auto) 2.2 % (0.0-2.0); Hematocrit 36.7 % (41.0-53.0); Hemoglobin 12.3 g/dL (13.5-17.5); Lymphocytes # (auto) 1.1 uL; Lymphocytes % (auto) 16.9 % (10.0-50.0); Mean Corpuscular Hemoglobin 31.9 pg (28.0-32.0); Mean Corpuscular Hgb Conc. 33.7 g/dL (32.0-36.0); Mean Corpuscular Volume 94.8 fL (80.0-100.0); Monocytes # (auto) 1.1 uL; Monocytes % (auto) 16.2 % (0.0-12.0); Neutrophils # (auto) 3.5 uL; Neutrophils % (auto) 53.7 % (37.0-80.0); Platelet Count (auto) 450 10^3/uL (140-450); Red Blood Cells 3.87 10^6/uL (4.5-5.90)
[2019-07-31 05:00] LABS: Bilirubin, Total 18.8 mg/dL (0.2-1.0); Phosphorus 3.7 mg/dL (2.5-4.90); Total Protein 6.8 g/dL (6.4-8.2)
[2019-07-31] MEDS: VANCOMYCIN 1GM/250ML 250 ML IV SCH ×2 (05:30→17:40)
[2019-07-31] MEDS: ACCU-CHEK COMFORT CURVE STRIP VI SCH ×5 (06:00→23:28)
[2019-07-31] MEDS: InsuLIN REG 1unit/0.01ml Soln (100units/ml) SC SCH ×5 (06:00→23:28)
--- NOTE | 2019-07-31 07:25 | NUR ---
REPORT RECEIVED FROM SHAKER OPERATOR NURSE. PATIENT RESTING IN BED INTUBATED AND SEDATED. RESPIRATIONS EVEN BUT RATE IS INCREASED IN 22-26 STACKING BREATHES. INCREASED SEDATIONS PER PROTOCOL. BED IN LOW POSITION. WILL CONTINUE TO MONITOR.
[2019-07-31] MEDS: cefTRIAXone 1GM/50ML D5W 50 ML IV SCH (08:22)
[2019-07-31] MEDS: ALLOPURINOL 100 MG TAB PO SCH (09:45)
[2019-07-31] MEDS: FAMOTIDINE (10MG/ML) 2ML VL IV SCH ×2 (09:46→22:42)
[2019-07-31] MEDS: NEOMYCIN-BACITRACIN-POLYM UNITDOSE PKG TOP OINT TOP SCH (09:46)
--- NOTE | 2019-07-31 10:23 | NUR ---
DR JACKMAN AT BEDSIDE TO ASSESS PATIENT AND DISCUSS PLAN OF CARE. MD INFORMED OF PATIENTS INCREASED RR, STACKING BREATHS AND RESTLESS. PER MD INFORM DESK REPRESENTATIVE, DR JACKMAN SPOKE TO DAUGHTER AND UPDATED ON PATIENT STATUS. ALL ORDERS NOTED IN CHART.
--- NOTE | 2019-07-31 11:31 | NUR ---
Nutrition Follow-Up Notes Wt. 66.4.5 kg today. Pt's intubated, sedated, no immediate family member at bedside when rounded earlier. Pt's NPO, remains on TPN @ 70 ml/hr providing 1680 kcal, 80 gms pro and 1360 NPCs. Pt with adequate PN support aeb current PN infusion meets 84% to 93% if est caloric needs and 70% to 80% of est protein needs. Noted pt's to receive tonight another TPN @ same rate and nutrient concentration. Estimated needs based on CBW 67.7 kg-for intubated pts in ICU; Re-calculate PRN 1640 kcal (PSU 2002) vs. 8683-8665 kcal (27-30 kcal/kg for wt gain promotion) 100-115 g protein (1.5-1.7 g/kg) Labs: Ca 8.4 L, Tot manuel 18.8 H, ALT 504 H, ALT 348 H ; Alb 1.5 L, Prealb 6.7 L, Trig 173 H Skin: Alex 13, mod risk, pt's L ear pressure ulcer per RN doc. Pls refer to latest saddle stitch operator's notes for further details re: tx plans. GI: Last BM unknown; pt had 50 ml Gastric drainage output this morning per RN documentations PES: Altered nutrition related lab values r/t hepatic dysfunction and acute/chronic medical conditions aeb severely elev LFT's, hypoalb Increased nutrient needs r/t current medical condition aeb intubated, sedated, severe hypoalbuminemia, NPO with PN support. Will continue to monitor NPO status, PN tolerance, pertinent labs, skin status and weight trends. F/u in 2 to 3 days. Additional Recommendation: 1.) If still NPO, continue PN support that meets at least 75% of est nutrient needs prn. 2.) Advance gradually to oral diet when medically appropriate. 3.) Refer to RD for further nutrition educ. and weight monitoring upon discharge. 4.) Continue current plan of care.
--- NOTE | 2019-07-31 11:56 | NUR ---
SWITCHED PT TO PRESSURE CONTROL PER DR MASCORRO ORDERS. PT IS ON PC, RR 12, IP20, PEEP5, I TIME 1.0. PT TOLERATING CHANGE WELL. RN AWARE.
[2019-07-31] MEDS: DOPamine 1600MCG/ML D5W 250 ML IV SCH ×2 (12:48→23:35)
[2019-07-31] MEDS: MIDAZOLAM DRIP 50 mg/50mL 50 ML IV SCH (13:59)
[2019-07-31] MEDS: fentaNYL Drip 2500mCg/250mlNS 250 ML IV SCH ×2 (14:19→18:12)
--- NOTE | 2019-07-31 16:49 | NUR ---
DR MASCORRO AT BEDSIDE TO ASSESS PATIENT AND DISCUSS PLAN OF CARE. PER MD CPAP IN MORNING TOLERATED.
--- NOTE | 2019-07-31 17:12 | NUR ---
PER DR MASCORRO DECREASE VERSED BY HALF TO SEE IF PATIENT BECOMES MORE RESPONSIVE FOR POSSIBLE CPAP TRIAL NOW. ON UNIT TO OBSERVE PATIENT.
--- NOTE | 2019-07-31 18:27 | NUR ---
PATIENT ON CPAP PER DR MASCORRO. TOLERATING WELL AT THIS TIME. WILL CONTINUE TO MONITOR.
--- NOTE | 2019-07-31 19:34 | NUR ---
UPDATED DAUGHTER ON PATIENT STATUS AND CPAP TRIAL AT THIS TIME. ALL QUESTIONS AND CONCERNS ADDRESSED AT THIS TIME.
--- NOTE | 2019-07-31 19:35 | NUR ---
RT AT BEDSIDE FOR ABG
--- NOTE | 2019-07-31 19:50 | NUR ---
Patient extubated by RT Extubation order received by RT Roselia Dutta at bedside. Patient extubated with no problems, patient tolerated well. Patient placed on30% cool mist mask. Sats prior to extubation 98%, following extubation 98%, VS stable. Will continue to monitor.
[2019-07-31] MEDS ORDERED: TPN PER PHARMACY IV NR ×8 (20:00)
--- NOTE | 2019-07-31 20:21 | NUR ---
FAMILY AT BEDSIDE
--- NOTE | 2019-07-31 20:45 | NUR ---
Central Line Dressing Changes Central line dressing change done with a sterile technique. Cleansed with chloraprep scrub/betadine. Stat lock, and bio-patch as available. Occlusive dressing applied. Will change claves post lab draw.
[2019-07-31] MEDS: NOREPINEPHRINE 8 MG/250ML KIT 250 ML IV SCH (20:50)
--- NOTE | 2019-07-31 21:14 | NUR ---
ASSESSED PT POST EXTUBATION, NO STRIDOR NOTED. FAMILY AT BEDSIDE. BS COARSE AT UPPER AIRWAY, PT IS COACHED TO COUGH. SXNED SMALL THICK YELLOW SECRETINS ORALLY
[2019-07-31] MEDS: PROPOFOL 100 ML IV SCH (21:27)
--- NOTE | 2019-07-31 23:00 | NUR ---
DESATURATION 84-85%, SUCTIONED SECRETIONS PRN, THICK MUCUS SECRETIONS NOTED, MAINTAINED ON MODERATE HIGH BACK REST, STILL ON COOL MIST MASK. PAGED THE RT.
[2019-08-01] VITALS (80 sets, daily range): BP systolic 74–153; BP diastolic 36–95
[2019-08-01] MEDS: IPRATROPIUM BROM 0.5 MG/2.5ML INH SOL NEB SCH ×4 (00:06→18:11)
[2019-08-01] MEDS: ALBUTEROL SULF 2.5 MG/0.5ML(0.5%) NEB SOLN NEB SCH ×4 (00:06→18:11)
[2019-08-01] MEDS: ACETYLCYSTEINE 10 %(100MG/ML) SOL 4ML NEB SCH ×4 (00:06→18:12)
--- NOTE | 2019-08-01 01:06 | NUR ---
PLACED PT ON 3L NC, SAT 93-95%. SXNED FOAMY WHITE SECRETIONS ORALLY.
[2019-08-01] MEDS: ONDANSETRON HCL 4 MG/2 ML VIAL IV PRN (02:24)
--- NOTE | 2019-08-01 02:27 | NUR ---
MARILY KELLER AND Addendum: 08/01/19 at 0228 by Matt Garrett RN BEVERLY CERVANTES
--- NOTE | 2019-08-01 02:28 | NUR ---
PER BRENDON NEWELL RN, PT VOMITED AND ASPIRATED, SUCTIONING WAS DONE WHILE PRIMARY RN WAS ON LUNCH, AFTER RESUMING LUNCH BREAK, ZOFRAN 4MG IV GIVEN ORDERED PRN.
--- NOTE | 2019-08-01 02:30 | NUR ---
DESATURATION 70'S, ST RR 30'S TO 40'S AND ELEVATED TEMP NOTED, RT AWARE AND SHIFTED NASAL CANNULA TO NRBM @ 15L/MIN, STILL SATTING IN THE 70'S TO 80'S, BECOMING MORE RESTLESS AND SHORT OF BREATH. PAGED THE HOSPITALIST. AWAITING CALL BACK.
--- NOTE | 2019-08-01 02:45 | NUR ---
RT AND VERN BAILER TENDERS SUPERVISOR AT BEDSIDE WITH ORDER TO REINTUBATE THE PT. 0450 SUCCINYLCHOLINE 100 MG IV GIVEN AND ETOMIDATE 20 MG IV GIVEN PER BAILER TENDERS SUPERVISOR ORDER.
--- NOTE | 2019-08-01 03:00 | NUR ---
OFF DOPAMINE DRIP, SBP 130'S TO 150'S, HR 90'S TO 100'S.
--- NOTE | 2019-08-01 03:50 | NUR ---
TEMP 101.1, COOLING MEASURES DONE.
[2019-08-01 04:24] LABS: Eosinophils # (auto) 0.5 uL; Lymphocytes # (auto) 0.8 uL; White Blood Cell 10.1 10^3/uL (4.4-10.8)
[2019-08-01 04:29] LABS: Basophils # (auto) 0.1 uL; Basophils % (auto) 0.8 % (0.0-2.0); Eosinophils % (auto) 4.9 % (0.0-7.0); Hematocrit 38.5 % (41.0-53.0); Lymphocytes % (auto) 7.6 % (10.0-50.0); Mean Corpuscular Hemoglobin 31.9 pg (28.0-32.0); Mean Corpuscular Hgb Conc. 33.8 g/dL (32.0-36.0); Mean Corpuscular Volume 94.2 fL (80.0-100.0); Monocytes # (auto) 1.3 uL; Monocytes % (auto) 12.5 % (0.0-12.0); Neutrophils # (auto) 7.5 uL; Neutrophils % (auto) 74.2 % (37.0-80.0); Platelet Count (auto) 554 10^3/uL (140-450); Red Blood Cells 4.08 10^6/uL (4.5-5.90); Red Cell Distribution Width 18.2 % (11.8-14.3)
[2019-08-01] MEDS: LORazepam 2MG/ML-1ML VIAL IV PRN (04:39)
[2019-08-01 04:40] LABS: Albumin 1.6 g/dL (3.4-5.0); Calcium 8.3 mg/dL (8.5-10.1); Magnesium 2.1 mg/dL (1.6-2.6); Potassium 3.9 mmol/L (3.5-5.1)
[2019-08-01 04:45] LABS: BUN/Creatinine Ratio 17.6; Bilirubin, Total 21.3 mg/dL (0.2-1.0); Phosphorus 3.3 mg/dL (2.5-4.90); Pre Albumin 12.8 mg/dL (20.0-40.0); Total Protein 7.6 g/dL (6.4-8.2)
[2019-08-01] MEDS ORDERED: ETOMIDATE (2MG/ML) 20ML VIAL IV ONE ×2 (04:46→05:30)
[2019-08-01] MEDS ORDERED: SUCCINYLCHOLINE CHLORIDE 20 MG/ML 10ML VIAL IV ONE ×2 (04:47→05:30)
--- NOTE | 2019-08-01 04:58 | NUR ---
RE-INTUBATION VERN COMPUTER APPLICATIONS INSTRUCTOR AND RT AT BEDSIDE, REINTUBATION DONE, AC MODE, SZ 8, 24 AT THE LIP, AC 12, TV 450, PEEP 5, FIO2 100%.
--- NOTE | 2019-08-01 05:11 | NUR ---
CXR TAKEN TO CHECK FOR ET PLACEMENT
--- NOTE | 2019-08-01 05:20 | NUR ---
MORNING CARE AND ORAL HYGIENE DONE
[2019-08-01] MEDS: MIDAZOLAM DRIP 50 mg/50mL 50 ML IV SCH ×3 (05:21→16:42)
--- NOTE | 2019-08-01 05:30 | NUR ---
Family updated on pt status Family of SAVMADIEJEANNA updated on patient's status and condition, spoke with Sulema thru phone. All questions and concerns addressed. Verbalized understanding.
[2019-08-01] MEDS: VANCOMYCIN 1GM/250ML 250 ML IV SCH ×2 (05:36→18:27)
[2019-08-01] MEDS: fentaNYL Drip 2500mCg/250mlNS 250 ML IV SCH (05:41)
[2019-08-01] MEDS: ACCU-CHEK COMFORT CURVE STRIP VI SCH ×3 (06:00→18:00)
[2019-08-01] MEDS: InsuLIN REG 1unit/0.01ml Soln (100units/ml) SC SCH ×3 (06:00→18:00)
--- NOTE | 2019-08-01 06:15 | NUR ---
PAGED THE HOSPITALIST FOR TEMP 104. COOLING MEASURES DONE. AWAITING CALL BACK
--- NOTE | 2019-08-01 06:39 | NUR ---
VERN LINTON CALLED BACK WITH ORDER TO GIVE TYLENOL RECTAL SUPP 650MG ONCE, BLOOD CULTURE AND INSERT OGT. WILL CARRY OUT AN ORDER.
[2019-08-01] MEDS ORDERED: ACETAMINOPHEN 650 MG RECT SUPP PR ONE ×2 (06:45)
--- NOTE | 2019-08-01 06:50 | NUR ---
Oral gastric tube insertion OGT inserted per MD order, pt is under sedation.Placement verified by aspiration of stomach contents, auscultation and chest xray. OGT connected to low intermittent suction and draining to a greenish output.
--- NOTE | 2019-08-01 06:50 | NUR ---
temp 102 rectally, tylenol 650 mg RS given as ordered. Still on cooling measures
--- NOTE | 2019-08-01 07:35 | NUR ---
OPEN REPORT RECEIVED REPORT OF FULL CODE ICU PATIENT FROM VI RN. PATIENT ON VENTILATOR SEDATED ON VERSED AND FENT. SEE IV SPREAD SHEET FOR THEIR GTT'S AND TITRATIONS. RIGHT IJ TLC INTACT. TOURE FREE OF KINKS DRAINING TO GRAVITY. PATIENT HAS A TEMPERATURE OF 102.7 AND PLACED ON A COOLING BLANKED. ALL FALL AND SAFETY PRECAUTIONS IN PLACE.
--- NOTE | 2019-08-01 07:59 | NUR ---
CALLED MD MASCORRO UPDATED MD MASCORRO ON PATIENT STATUS S/P INTUBATION AND LABS. NO NEW ORDERS RECEIVED.
--- NOTE | 2019-08-01 08:30 | NUR ---
FAMILY AT BED SIDE SON GRETTA AT BEDSIDE WITH FAMILY FRIEND USING CORRECT PASSWORD FOR INFORMATION. UPDATED ON PATIENT STATUS.
[2019-08-01] MEDS: FAMOTIDINE (10MG/ML) 2ML VL IV SCH ×2 (09:55→22:42)
[2019-08-01] MEDS: ALLOPURINOL 100 MG TAB PO SCH (09:55)
[2019-08-01] MEDS: cefTRIAXone 1GM/50ML D5W 50 ML IV SCH (09:55)
[2019-08-01] MEDS: NEOMYCIN-BACITRACIN-POLYM UNITDOSE PKG TOP OINT TOP SCH (09:56)
[2019-08-01] MEDS ORDERED: FUROSEMIDE 40 MG/4 ML VIAL IV ONE (11:00)
[2019-08-01] MEDS ORDERED: POTASSIUM EFFERVESENT TAB 25 MEQ GT ONE (11:00)
--- NOTE | 2019-08-01 11:04 | NUR ---
MD JACKMAN AT BEDSIDE UPDATED MD JACKMAN ON PATIENT STATUS, NEW ORDERS RECEIVED. MD JACKMAN SPOKE WITH DAUGHTER AT BEDSIDE ABOUT POC.
[2019-08-01] MEDS ORDERED: IOHEXOL 350 MG/ML 100ML IJ ONE (11:11)
--- NOTE | 2019-08-01 12:10 | NUR ---
RT Transport Note: Patient transported to {CT} with RN {MERLE/PINKY}. Patient transported to and from procedure on ventilator with previous ordered settings. Patient on cafeteria monitor with alarms set and audible, ambu-bag/mask connected to 02 tank. Patient returned to room with no adverse reaction noted. Transport completed without incident.
--- NOTE | 2019-08-01 12:15 | NUR ---
RETURN FROM CT PATIENT TOLERATED WELL
--- NOTE | 2019-08-01 12:54 | NUR ---
TOURE REPLACED. FREE OF KINKS, HUNG BELOW BLADDER DRAINING LIGHT YELLOW URINE
--- NOTE | 2019-08-01 14:00 | NUR ---
DOPAMINE STARTED STARTED PATIENT ON DOPAMINE @ 2 FOR BP OF 77/41 MAP.
--- NOTE | 2019-08-01 14:40 | NUR ---
MD JACKMAN CALLED MD JACKMAN SPOKE WITH MD CARD ABOUT SPLENIC INFARCT RESPONSE WAS THERE IS NOTHING HE CAN DO. UPDATED ON PATIENTS BLOOD PRESSURE.
--- NOTE | 2019-08-01 16:14 | NUR ---
DAUGHTERS AT BEDSIDE UPDATED ON PATIENT STATUS, ALL QUESTIONS ANSWERED AT THIS TIME.
[2019-08-01] MEDS: PIPERACILLIN-TAZOB 3.375GM 100 ML IV SCH (18:27)
--- NOTE | 2019-08-01 19:23 | NUR ---
CLOSING NOTE GAVE REPORT OF FULL CODE ICU PATIENT TO BRIM STITCHER RN. ALL SAFETY PRECAUTIONS IN PLACE. VSS.
[2019-08-01] MEDS ORDERED: TPN PER PHARMACY IV NR ×8 (20:00)
[2019-08-01] MEDS: NOREPINEPHRINE 8 MG/250ML KIT 250 ML IV SCH (20:50)
[2019-08-01] MEDS: PROPOFOL 100 ML IV SCH (21:27)
[2019-08-01] MEDS: ACETAMINOPHEN 650 mg PER 20 mL UD GT PRN (22:16)
[2019-08-02] VITALS (71 sets, daily range): BP systolic 81–114; BP diastolic 42–75
[2019-08-02] MEDS: ACETYLCYSTEINE 10 %(100MG/ML) SOL 4ML NEB SCH ×4 (00:22→18:15)
[2019-08-02] MEDS: ALBUTEROL SULF 2.5 MG/0.5ML(0.5%) NEB SOLN NEB SCH ×4 (00:22→18:15)
[2019-08-02] MEDS: IPRATROPIUM BROM 0.5 MG/2.5ML INH SOL NEB SCH ×4 (00:22→18:15)
[2019-08-02] MEDS: DOPamine 1600MCG/ML D5W 250 ML IV SCH ×2 (01:07→08:33)
[2019-08-02 04:41] LABS: Basophils # (auto) 0.1 uL; Basophils % (auto) 1.4 % (0.0-2.0); Mean Corpuscular Hgb Conc. 33.9 g/dL (32.0-36.0); Monocytes # (auto) 1.7 uL
[2019-08-02 04:43] LABS: Eosinophils % (auto) 10.1 % (0.0-7.0); Hematocrit 41.2 % (41.0-53.0); Lymphocytes # (auto) 1.4 uL; Lymphocytes % (auto) 14.3 % (10.0-50.0); Mean Corpuscular Hemoglobin 31.9 pg (28.0-32.0); Monocytes % (auto) 17.2 % (0.0-12.0); Neutrophils # (auto) 5.6 uL; Nucleated Red Blood Cells % 0.2 %; Platelet Count (auto) 548 10^3/uL (140-450); Red Blood Cells 4.38 10^6/uL (4.5-5.90); Red Cell Distribution Width 18.6 % (11.8-14.3); White Blood Cell 9.8 10^3/uL (4.4-10.8)
[2019-08-02 04:53] LABS: Albumin 1.5 g/dL (3.4-5.0); Calcium 8.4 mg/dL (8.5-10.1); Magnesium 2.3 mg/dL (1.6-2.6); Potassium 3.2 mmol/L (3.5-5.1)
[2019-08-02 04:54] LABS: INR 1.48 (0.9-1.15); Partial Thromboplastin Time 37.5 sec (23.64-32.05)
[2019-08-02 04:56] LABS: Bilirubin, Total 23.3 mg/dL (0.2-1.0); Phosphorus 3.9 mg/dL (2.5-4.90); Total Protein 7.2 g/dL (6.4-8.2)
[2019-08-02] MEDS: VANCOMYCIN 1GM/250ML 250 ML IV SCH ×2 (06:00→18:09)
[2019-08-02] MEDS: ACCU-CHEK COMFORT CURVE STRIP VI SCH ×4 (06:00→18:10)
[2019-08-02] MEDS: InsuLIN REG 1unit/0.01ml Soln (100units/ml) SC SCH ×4 (06:00→18:00)
[2019-08-02] MEDS: PIPERACILLIN-TAZOB 3.375GM 100 ML IV SCH ×4 (06:00→18:40)
[2019-08-02] MEDS: MIDAZOLAM DRIP 50 mg/50mL 50 ML IV SCH ×2 (08:33→13:17)
[2019-08-02] MEDS: FAMOTIDINE (10MG/ML) 2ML VL IV SCH ×2 (10:30→22:00)
[2019-08-02] MEDS: NEOMYCIN-BACITRACIN-POLYM UNITDOSE PKG TOP OINT TOP SCH (10:38)
[2019-08-02] MEDS: POTASSIUM CHL 20MEQ/100ML 100 ML IV SCH ×2 (10:38→12:00)
[2019-08-02] MEDS: ALLOPURINOL 100 MG TAB PO SCH (10:38)
--- NOTE | 2019-08-02 11:12 | NUR ---
DR JACKMAN AT BEDSIDE, OK TO TITRATE DOWN ON DOPAMINE AND OK TO USE LEVOPHED INSTEAD IF NECESSARY TO MAINTAIN BP.
--- NOTE | 2019-08-02 13:00 | NUR ---
DR JACKMAN AT BEDSIDE SPOKE WITH FAMILY REGARDING PLAN OF CARE AND POSSIBLE HOSPICE
[2019-08-02] MEDS: NOREPINEPHRINE 8 MG/250ML KIT 250 ML IV SCH (13:18)
[2019-08-02] MEDS: fentaNYL Drip 2500mCg/250mlNS 250 ML IV SCH (14:19)
[2019-08-02] MEDS ORDERED: TPN PER PHARMACY IV NR ×9 (20:00)
[2019-08-02] MEDS: PROPOFOL 100 ML IV SCH (21:27)
[2019-08-03] VITALS (69 sets, daily range): BP systolic 80–139; BP diastolic 37–81
[2019-08-03] MEDS: IPRATROPIUM BROM 0.5 MG/2.5ML INH SOL NEB SCH ×4 (00:34→18:36)
[2019-08-03] MEDS: ALBUTEROL SULF 2.5 MG/0.5ML(0.5%) NEB SOLN NEB SCH ×4 (00:34→18:36)
[2019-08-03] MEDS: ACETYLCYSTEINE 10 %(100MG/ML) SOL 4ML NEB SCH ×4 (00:34→18:36)
[2019-08-03] MEDS: PIPERACILLIN-TAZOB 3.375GM 100 ML IV SCH ×5 (01:29→23:45)
[2019-08-03] MEDS: InsuLIN REG 1unit/0.01ml Soln (100units/ml) SC SCH ×3 (01:29→12:00)
[2019-08-03] MEDS: ACCU-CHEK COMFORT CURVE STRIP VI SCH ×3 (01:29→13:22)
[2019-08-03 04:37] LABS: Basophils # (auto) 0.1 uL; Eosinophils # (auto) 0.6 uL; Hemoglobin 13.8 g/dL (13.5-17.5); Lymphocytes # (auto) 1.1 uL; White Blood Cell 8.4 10^3/uL (4.4-10.8)
[2019-08-03 04:40] LABS: Basophils % (auto) 0.9 % (0.0-2.0); Eosinophils % (auto) 6.9 % (0.0-7.0); Hematocrit 39.8 % (41.0-53.0); Lymphocytes % (auto) 13.6 % (10.0-50.0); Mean Corpuscular Hemoglobin 32.1 pg (28.0-32.0); Mean Corpuscular Hgb Conc. 34.6 g/dL (32.0-36.0); Mean Corpuscular Volume 92.9 fL (80.0-100.0); Monocytes # (auto) 1.3 uL; Monocytes % (auto) 14.9 % (0.0-12.0); Neutrophils # (auto) 5.3 uL; Neutrophils % (auto) 63.7 % (37.0-80.0); Platelet Count (auto) 612 10^3/uL (140-450); Red Blood Cells 4.29 10^6/uL (4.5-5.90); Red Cell Distribution Width 18.8 % (11.8-14.3)
[2019-08-03 05:46] LABS: Potassium 4.1 mmol/L (3.5-5.1); Sodium 138 mmol/L (136-145)
[2019-08-03 05:47] LABS: Alkaline Phosphatase 149 U/L (45-117); Anion Gap 6 (5-15); Aspartate Aminotransferase 185 U/L (15-37); BUN/Creatinine Ratio 18.6; Blood Urea Nitrogen 16 mg/dL (7-18); Carbon Dioxide 29 mmol/L (21-32); Chloride 103 mmol/L (98-107); GFR African American 117 mL/min; GFR Non-African American 97 mL/min; Glucose 128 mg/dL (74-106)
[2019-08-03 05:48] LABS: Alanine Aminotransferase 236 U/L (16-61); Bilirubin, Total 22.4 mg/dL (0.2-1.0); Calcium 8.4 mg/dL (8.5-10.1); Phosphorus 3.2 mg/dL (2.5-4.90)
[2019-08-03 05:49] LABS: Albumin 1.4 g/dL (3.4-5.0); Magnesium 2.2 mg/dL (1.6-2.6); Total Protein 7.1 g/dL (6.4-8.2)
[2019-08-03] MEDS: VANCOMYCIN 1GM/250ML 250 ML IV SCH ×2 (06:00→17:31)
--- NOTE | 2019-08-03 07:34 | NUR ---
Opening Shift Note: Report received from AGUEDA Burgess. Patient intubated and sedated -CXR continues with congestion. No plans known to CPAP today. Will assess at bedside. See Physical assessment for specific mechanical settings, drips, and assessment.
--- NOTE | 2019-08-03 09:00 | NUR ---
Letter given to daughter by Dr. Jose nieto for family member to come from [place] to see patient.
[2019-08-03] MEDS: FAMOTIDINE (10MG/ML) 2ML VL IV SCH ×2 (09:55→21:40)
[2019-08-03] MEDS: ALLOPURINOL 100 MG TAB PO SCH (09:56)
[2019-08-03] MEDS: NEOMYCIN-BACITRACIN-POLYM UNITDOSE PKG TOP OINT TOP SCH (09:56)
[2019-08-03] MEDS: MIDAZOLAM DRIP 50 mg/50mL 50 ML IV SCH ×2 (10:49→17:13)
--- NOTE | 2019-08-03 10:58 | NUR ---
Dr. Early at bedside: Keep MAP over 60.
--- NOTE | 2019-08-03 11:00 | NUR ---
Dr. Garcia at bedside: Discontinue central line and send tip to lab, turn off sedation for possible CPAP. Give 20 of lasix Ivp.
[2019-08-03] MEDS: NOREPINEPHRINE 8 MG/250ML KIT 250 ML IV SCH (11:15)
[2019-08-03] MEDS: DOPamine 1600MCG/ML D5W 250 ML IV SCH ×2 (11:15→18:52)
--- NOTE | 2019-08-03 11:18 | NUR ---
Nutrition Follow-Up Notes Wt. 64.3 kg today. Pt's intubated, sedated, immediate family members at bedside who provide pt's additional pertinent information when rounded earlier. per family, they don't have idea about pt's usual weight, however lost some weight likely d/t decreased food intake few weeks captain waiter. Pt's usually has good appetite eat meals regularly, NKFA and not into any special diets captain waiter. Pt remains NPO, on TPN @ 70 ml/hr providing 1680 kcal, 80 gms pro and 1360 NPCs. Pt with adequate PN support aeb current PN infusion meets 84% to 93% if est caloric needs and 70% to 80% of est protein needs. Discussed importance/benefits of PN support while NPO r/t current medical condition. Noted pt's for active PICC line consult. Estimated needs based on CBW 67.7 kg-for intubated pts in ICU; Re-calculate PRN 1640 kcal (PSU 2002) vs. 9606-2751 kcal (27-30 kcal/kg for wt gain promotion) 100-115 g protein (1.5-1.7 g/kg) Labs: Ca 8.4 L, Tot manuel 22.4 H, ALT 185 H, ALT 236 H, ALP 149 H ; Alb 1.4 L; Prealb 6.7 L, Trig 173 H Skin: Alex 13, mod risk, pt's L ear pressure ulcer, jaundiced per RN doc. Pls refer to latest ingredient handler's notes for further details re: tx plans. GI: Last BM unknown; pt had 225 ml Gastric drainage output this morning per RN documentations PES: Altered nutrition related lab values r/t hepatic dysfunction and acute/chronic medical conditions aeb severely elev LFT's, hypoalb Increased nutrient needs r/t current medical condition aeb intubated, sedated, severe hypoalbuminemia, NPO with PN support. Will continue to monitor NPO status, PN tolerance, pertinent labs, skin status and weight trends. F/u in 2 to 3 days. Additional Recommendation: 1.) If still NPO, continue PN support that meets at least 75% of est nutrient needs prn. 2.) Advance gradually to oral diet when medically appropriate. 3.) Refer to RD for further nutrition educ. and weight monitoring upon discharge. 4.) Continue current plan of care.
[2019-08-03] MEDS ORDERED: FUROSEMIDE 20 MG/2 ML VIAL IV ONE (12:00)
--- NOTE | 2019-08-03 12:58 | NUR ---
Dr. Emery at bedside: Continue to monitor, give PRN lactulose if Ammonia elevated.
[2019-08-03] MEDS ORDERED: LACTULOSE 20Gm/30ML SOLN PO PRN ×2 (13:00→13:30)
[2019-08-03] MEDS: fentaNYL Drip 2500mCg/250mlNS 250 ML IV SCH (14:19)
--- NOTE | 2019-08-03 15:30 | NUR ---
CENTRAL LINE TIP SENT TO LAB.
--- NOTE | 2019-08-03 15:53 | NUR ---
Respiratory note: TITRATED FIO2 TO 50% RN NOTIFY.
--- NOTE | 2019-08-03 18:31 | NUR ---
Daughter at beside- waiting for family to arrive from out of state and from [place] to make decision for comfort measures.
--- NOTE | 2019-08-03 19:08 | NUR ---
Endorsed care to AGUEDA Sullivan.
--- NOTE | 2019-08-03 19:30 | NUR ---
PM ASSESSMENT PT SEDATED, ETT TO VENT, ETT 8.0 /25@LL, ACPC 12/FIO2 40%/ TV450/PEEP5, O2SAT 100%. PT ON LEVOPHED, DOPAMINE, VERSED, AND FENTANYL. OGT TO LIS. TOURE CATHETER DRAINING VIA GRAVITY W/ ORANGE URINE. OPTIFOAM ON SACRUM FOR PREVENTION. SCD'S BL LEGS. FAMILY AT BEDSIDE. SAFETY PRECAUTIONS IN PLACE. WILL CONTINUE TO MONITOR.
[2019-08-03] MEDS ORDERED: TPN PER PHARMACY IV NR ×10 (20:00)
[2019-08-03] MEDS: PROPOFOL 100 ML IV SCH (21:27)
--- NOTE | 2019-08-03 23:44 | NUR ---
Report received from Laurie to assume care.
[2019-08-04] VITALS (99 sets, daily range): BP systolic 84–122; BP diastolic 36–69
[2019-08-04] MEDS: IPRATROPIUM BROM 0.5 MG/2.5ML INH SOL NEB SCH ×4 (00:22→18:52)
[2019-08-04] MEDS: ALBUTEROL SULF 2.5 MG/0.5ML(0.5%) NEB SOLN NEB SCH ×4 (00:22→18:52)
[2019-08-04] MEDS: ACETYLCYSTEINE 10 %(100MG/ML) SOL 4ML NEB SCH ×4 (00:22→18:52)
--- NOTE | 2019-08-04 04:00 | NUR ---
MORNING CARE AND ORAL HYGIENE DONE. REPOSITIONED FOR COMFORT.
[2019-08-04 04:24] LABS: Basophils # (auto) 0.1 uL; Basophils % (auto) 0.6 % (0.0-2.0); Eosinophils # (auto) 0.4 uL; Hematocrit 37.8 % (41.0-53.0); Hemoglobin 12.8 g/dL (13.5-17.5); Lymphocytes # (auto) 1.2 uL; Lymphocytes % (auto) 11.2 % (10.0-50.0); Mean Corpuscular Hemoglobin 31.5 pg (28.0-32.0); Mean Corpuscular Hgb Conc. 33.9 g/dL (32.0-36.0); Monocytes # (auto) 1.2 uL; Monocytes % (auto) 10.7 % (0.0-12.0); Neutrophils % (auto) 73.5 % (37.0-80.0); Red Blood Cells 4.07 10^6/uL (4.5-5.90); Red Cell Distribution Width 18.8 % (11.8-14.3)
[2019-08-04 04:26] LABS: Platelet Count (auto) 626 10^3/uL (140-450)
[2019-08-04 04:46] LABS: Albumin 1.6 g/dL (3.4-5.0); Calcium 8.5 mg/dL (8.5-10.1); Potassium 3.9 mmol/L (3.5-5.1)
[2019-08-04 04:50] LABS: BUN/Creatinine Ratio 17.2; Bilirubin, Total 23.5 mg/dL (0.2-1.0); Phosphorus 3.8 mg/dL (2.5-4.90); Total Protein 6.8 g/dL (6.4-8.2)
[2019-08-04] MEDS: VANCOMYCIN 1GM/250ML 250 ML IV SCH (05:27)
[2019-08-04] MEDS: PIPERACILLIN-TAZOB 3.375GM 100 ML IV SCH (06:32)
--- NOTE | 2019-08-04 06:37 | NUR ---
Respiratory note: RECEIVED PATIENT ON V18 CARESCAPE VENT ORALLY INTUBATED WITH AN 8.5 ETT SECURED VIA JULIANN AT THE 25CM MARKING AT THE LIP, AND MECHANICALLY VENTILATED WITH THE CHARTED SETTINGS. SPO2 95%, LUNG SOUNDS COARSE T/O, NO SECRETIONS WHEN SUCTIONED. SKIN IS WARM/DRY TO THE TOUCH AND IS INTACT NEAR JULIANN SITE. THERE IS AN OGT IN PLACE AND SECURED TO THE ETT, NO CENTRAL LINE ACCESS NOTED. SKIN COLOR APPEARS JAUNDICE, NO EDEMA NOTED. LEG SEQUENTIALS IN PLACE AND OPERATIONAL. PATIENT IS RESPONSIVE TO TACTILE STIMULI BUT DOES NOT RESPOND TO VERBAL STIMULI, AND IS SEDATED ON VERSED AND FENTANYL DRIPS. NO AM CXR TO ASSESS. PATIENT IS RESTING COMFORTABLY AND TOLERATING VENT WELL, NO CHANGES MADE. VENT PLUGGED INTO RED OUTLET AND ALL ALARMS ARE SET AND AUDIBLE. WILL CONTINUE TO ASSESS PATIENT WELL VENTILATOR FUNCTION. OpenPlacement-Zytoprotec RUN INLINE.
--- NOTE | 2019-08-04 07:00 | NUR ---
Opening Shift Note: Report received from AGUEDA Campbell. Patient continues on sedation- Vtach run last night. Patient on pressors. See interventions for specific details on mechanical vent. and assessment.
--- NOTE | 2019-08-04 07:15 | NUR ---
CLOSING NOTES RESTING ON BED WITH NO SIGNS OF DISTRESS, STILL ON VENT AND SEDATION WITH VERSED AND FENTANYL.. VS STABLE. REPORT GIVEN TO NEVAEH ROMEO.
--- NOTE | 2019-08-04 09:00 | NUR ---
Complete linen change done: Bed bath given.
[2019-08-04] MEDS: DOPamine 1600MCG/ML D5W 250 ML IV SCH (09:42)
--- NOTE | 2019-08-04 10:30 | NUR ---
Dr. Garcia at bedside: New orders placed - and since patient is not DNR (comfort care) ordered PICC line for pressors. Eliquis ordered and zosyn and vanco was discontinued.
[2019-08-04] MEDS: FAMOTIDINE (10MG/ML) 2ML VL IV SCH ×2 (10:35→22:00)
[2019-08-04] MEDS: ALLOPURINOL 100 MG TAB PO SCH (10:35)
[2019-08-04] MEDS: MIDAZOLAM DRIP 50 mg/50mL 50 ML IV SCH (10:54)
[2019-08-04] MEDS: NOREPINEPHRINE 8 MG/250ML KIT 250 ML IV SCH (11:15)
[2019-08-04 11:32] LABS: INR 1.19 (0.9-1.15); Partial Thromboplastin Time 34.3 sec (23.64-32.05)
[2019-08-04] MEDS: APIXABAN 5 MG TAB PO SCH ×2 (13:11→22:00)
[2019-08-04] MEDS: LEVOFLOXACIN 750MG 150 ML IV SCH (13:11)
--- NOTE | 2019-08-04 13:49 | NUR ---
PICC line placement Patient significant other educated on need for PICC line placement. All risks and benefits explained and all questions and concerns addressed prior to procedure. Noted past medical history and allergies with no contraindications. INR and Plt counts within acceptable range. 5 fr PICC line inserted via right basilic vein using [employer]'s [employer] US and Tip Location System. Sterile technique with maximum barrier precautions utilized. Blood return obtained from each of the 3 lumens and each flushed easily with NS using proper technique. PICC secured with Stat-lock; biodisc and occlusive dressing applied. Stat portable chest x-ray obtained for PICC tip placement. *Baseline Arm Circumference 27 cm. Internal length 43 cm. External length 0 cm. PICC lot #[id number] Note: EBL 2 mls
[2019-08-04] MEDS ORDERED: LIDOCAINE 1% (LOCAL ANESTH.) PF 5ml SDV ID ONE (14:00)
[2019-08-04] MEDS: fentaNYL Drip 2500mCg/250mlNS 250 ML IV SCH (14:19)
--- NOTE | 2019-08-04 14:42 | NUR ---
Dr. Garcia signed DNR form: Per daughter (POA) she wants to wait for family to gather and decide - most likely tomorrow patient will be weaned off ventilator and comfort care (DNR). Ultimately per brother Sulema will make final decision.
--- NOTE | 2019-08-04 15:00 | NUR ---
Okay to use PICC line Xray completed. Lisa ROMEO notified randy to use.
[2019-08-04] MEDS: DexMEDEtomidine 400 MCG in D5W 5% 96 ML IV SCH (17:44)
--- NOTE | 2019-08-04 17:54 | NUR ---
Dr. Espinal at bedside: ABG & CXR in am, precedex, SIMV when more awake, can give versed 2mg Q2h prn.
[2019-08-04] MEDS ORDERED: MIDAZOLAM HCL 1MG/1ML-2 ML VIAL IV PRN (18:00)
--- NOTE | 2019-08-04 18:58 | NUR ---
Endorsed care to AGUEDA Burgess.
[2019-08-04] MEDS: PROPOFOL 100 ML IV SCH (21:27)
[2019-08-04] MEDS: SODIUM CHLOR 0.9% PF (SALINE LOCK) 10ML VIAL/SYR IV SCH (22:00)
[2019-08-05] VITALS (79 sets, daily range): BP systolic 71–136; BP diastolic 36–77
[2019-08-05] MEDS: ACETYLCYSTEINE 10 %(100MG/ML) SOL 4ML NEB SCH ×4 (03:20→18:25)
[2019-08-05] MEDS: ALBUTEROL SULF 2.5 MG/0.5ML(0.5%) NEB SOLN NEB SCH ×4 (03:20→18:25)
[2019-08-05] MEDS: IPRATROPIUM BROM 0.5 MG/2.5ML INH SOL NEB SCH ×4 (03:20→18:25)
[2019-08-05 06:26] LABS: Basophils # (auto) 0.1 uL; Basophils % (auto) 0.9 % (0.0-2.0); Lymphocytes # (auto) 1.2 uL; Mean Corpuscular Volume 92.1 fL (80.0-100.0); Red Cell Distribution Width 19.2 % (11.8-14.3)
[2019-08-05 06:30] LABS: Eosinophils # (auto) 0.2 uL; Eosinophils % (auto) 2.5 % (0.0-7.0); Hematocrit 36.4 % (41.0-53.0); Hemoglobin 12.9 g/dL (13.5-17.5); Mean Corpuscular Hemoglobin 32.6 pg (28.0-32.0); Mean Corpuscular Hgb Conc. 35.4 g/dL (32.0-36.0); Monocytes # (auto) 1.1 uL; Monocytes % (auto) 10.7 % (0.0-12.0); Neutrophils # (auto) 7.4 uL; Neutrophils % (auto) 73.9 % (37.0-80.0); Nucleated Red Blood Cells % 0.2 %; Platelet Count (auto) 646 10^3/uL (140-450); Red Blood Cells 3.95 10^6/uL (4.5-5.90)
[2019-08-05 06:55] LABS: Potassium 3.3 mmol/L (3.5-5.1)
[2019-08-05 07:00] LABS: BUN/Creatinine Ratio 16.9
[2019-08-05 07:01] LABS: Calcium 8.9 mg/dL (8.5-10.1)
--- NOTE | 2019-08-05 07:15 | NUR ---
Opening Shift Note: Report received from AGUEDA Burgess. Patient continues on sedation- and Patient on pressors. See interventions for specific details on mechanical vent. and assessment. Note: Still waiting on daughter to sign DNR -wants to speak with Dr. Garcia-(Dr. Garcia called her twice yesterday with no return call. )
[2019-08-05] MEDS: MIDAZOLAM DRIP 50 mg/50mL 50 ML IV SCH (07:39)
[2019-08-05] MEDS: DOPamine 1600MCG/ML D5W 250 ML IV SCH ×2 (08:06→18:54)
[2019-08-05] MEDS: LEVOFLOXACIN 750MG 150 ML IV SCH (10:14)
[2019-08-05] MEDS: SODIUM CHLOR 0.9% PF (SALINE LOCK) 10ML VIAL/SYR IV SCH ×2 (10:15→22:16)
[2019-08-05] MEDS: FAMOTIDINE (10MG/ML) 2ML VL IV SCH ×2 (10:15→22:08)
[2019-08-05] MEDS: ALLOPURINOL 100 MG TAB PO SCH (10:16)
[2019-08-05] MEDS: APIXABAN 5 MG TAB PO SCH ×2 (10:16→22:07)
[2019-08-05] MEDS: POTASSIUM CHL 20MEQ/100ML 100 ML IV SCH ×2 (11:30→13:12)
[2019-08-05] MEDS: DexMEDEtomidine 400 MCG in D5W 5% 96 ML IV SCH (11:31)
--- NOTE | 2019-08-05 11:32 | NUR ---
Sedation turned off per communication order to try to get off: Precedex initiated. Trying to get patient off ventilator if patient tolerates - had made 3 different attempts to wean off and had gotten re-intubated, then desatted when sedated was weaned off to the 70's, then respiratory rate increased last night and was agitated. Now trying precedex.
[2019-08-05] MEDS: NOREPINEPHRINE 8 MG/250ML KIT 250 ML IV SCH (13:08)
--- NOTE | 2019-08-05 15:46 | NUR ---
Patient agitated on precedex only- restarted sedation.
--- NOTE | 2019-08-05 15:53 | NUR ---
Nutrition Follow-Up Notes Wt. 61.0 kg today. Pt's intubated, sedated, no immediate family members at bedside during rounds this morning. Pt's currently NPO, off from PN support at this time, per nursing. Noted pt's plan to wean off from the mechanical ventilator. Estimated needs based on CBW 67.7 kg-for intubated pts in ICU; Re-calculate PRN 1640 kcal (PSU 2002) vs. 4069-4404 kcal (27-30 kcal/kg for wt gain promotion) 100-115 g protein (1.5-1.7 g/kg) Labs: K 3.3 L, Tot manuel 23.5 H, ALT 247 H, ALT 225 H, ALP 209 H, Alb 1.6 L; Prealb 12.8 L, Trig 218 H Skin: Alex 13, mod risk, pt's L ear pressure ulcer, jaundiced per RN doc. Pls refer to latest sharepoint designer developer's notes for further details re: tx plans. GI: Last BM unknown; pt had 20 ml Gastric drainage output this morning per RN documentations PES: Altered nutrition related lab values r/t hepatic dysfunction and acute/chronic medical conditions aeb severely elev LFT's, hypoalb Increased nutrient needs r/t current medical condition aeb intubated, sedated, severe hypoalbuminemia, NPO with PN support. Will continue to monitor NPO status, pertinent labs, skin status and weight trends. F/u in 2 to 3 days. Additional Recommendation: 1.) If still NPO, consider to resume alternate nutrition support if medically appropriate. 2.) If Albumin continues trending down, consider Prostat 1 pkt BID. 3.) Consider daily MVI with minerals and Asc acid 500 mgs BID. 4.) Advance gradually to oral diet when medically appropriate. 5.) Refer to RD for further nutrition educ. and weight monitoring upon discharge. 6.) Continue current plan of care.
[2019-08-05] MEDS: fentaNYL Drip 2500mCg/250mlNS 250 ML IV SCH (17:27)
--- NOTE | 2019-08-05 18:10 | NUR ---
WOUND CARE NOTE: Wound care in to see patient for reevaluation of wounds and skin integrity monitoring. Patient continue resting in ICU bed in Rm. 111. Patient remain intubated, and mechanically ventilated. Patient appears to be in no pain using Duran Castañeda Faces Pain Scale. His Alex sore is 12. Skin assessment done with the assistance of patient's nurse AGUEDA Gonzalez. Wound to distal tip of patient's penis related from urinary catheter trauma is no longer visible. He's receiving Daily/PRN cleaning and application of topical triple antibiotic to wound site. His bilateral ear pinna has dry scab with pink surrounding skin; area is clean and dry, left open to air. Patient's bilateral buttocks has dry peeling skin. He's receiving BID/PRN cleaning and application of Z Guard cream to sacral/buttocks. Photograph of mentioned skin issue are taken for reference. Patient tolerated well. Repositioned patient for comfort facing his Rt. side, redistributed pressure points with pillows. AGUEDA Gonzalez at bedside. RECOMMENDATIONS: Continuation of all other wound care orders prescribed by MD,continue with skin/wound plan of care, continue monitoring by wound care while patient is mechanically ventilated. Addendum: 08/05/19 at 1904 by Bee Pablo RN Amended: Links added.
--- NOTE | 2019-08-05 18:54 | NUR ---
Dr. Prajapati at bedside- Updated on patients status and plans.
--- NOTE | 2019-08-05 18:59 | NUR ---
Endorsed care to AGUEDA Mcgee.
--- NOTE | 2019-08-05 19:40 | NUR ---
OPENING SHIFT NOTE PATIENT RECEIVED INTUBATED AND SEDATED. EYES 3 AND SLUGGISH WITH YELLOW COLORATION TO SCLERA, OPEN WITH TACTILE STIMULATION. COUGH AND GAG PRESENT. PATIENT MOVES ALL EXTREMITIES UPON POSITION CHANGE BY RN. VERSED AT 1 MG/HR, FENTANYL AT 25 MCG/HR, PRECEDEX AT 0.2 MCG/KG/HR. ANTHONY TRIPLE LUMEN PICC LINE RUNNING SEDATION. SR WITH PACS, PVCS, AND BBB, AT 68 BPM ON GRIPS. LEVOPHED 1.5 MCG/MIN, DOPAMINE 10 MCG/KG/MIN. RIGHT AC PERIPHERAL IV SALINE FLUSHED AND LOCKED, RIGHT FA PERIPHERAL IV SALINE FLUSHED AND LOCKED. RESPIRATIONS EVEN AND UNLABORED TOLERATING VENTILATOR, LUNG SOUNDS CLEAR AND DIMINISHED IN THE BASES. TOURE CATHETER PATENT AND DRAINING RED TO ORANGE URINE TO GRAVITY. SKIN INTACT, OPTIFOAM GENTLE SACRAL DRESSING PLACED PREVENTATIVELY. SCD'S BILATERALLY. BED IN LOWEST LOCKED POSITION, HOB ELEVATED >30 DEGREES, NO INDICATION OF PAIN OBSERVED, PATIENT IN FULL VIEW OF NURSES STATION. WILL CONTINUE TO MONITOR.
[2019-08-05] MEDS ORDERED: AMINO ACID ELECTROLYTE INFUSIO 1,000 ML IV ONE (20:00)
[2019-08-05] MEDS ORDERED: TPN PER PHARMACY 0 ML IV SCH (20:00)
--- NOTE | 2019-08-05 20:00 | NUR ---
FAMILY AT BEDSIDE UPDATED ON PLAN OF CARE. VERBALIZED UNDERSTANDING.
[2019-08-05] MEDS: PROPOFOL 100 ML IV SCH (21:27)
[2019-08-06] VITALS (97 sets, daily range): BP systolic 87–133; BP diastolic 49–75
[2019-08-06] MEDS ORDERED: DEXTROSE (50%) 50ML SYRG IV SCH
[2019-08-06] MEDS: ACCU-CHEK COMFORT CURVE STRIP VI SCH ×5 (00:06→23:33)
[2019-08-06] MEDS: ALBUTEROL SULF 2.5 MG/0.5ML(0.5%) NEB SOLN NEB SCH ×4 (00:20→18:18)
[2019-08-06] MEDS: ACETYLCYSTEINE 10 %(100MG/ML) SOL 4ML NEB SCH ×4 (00:20→18:18)
[2019-08-06] MEDS: IPRATROPIUM BROM 0.5 MG/2.5ML INH SOL NEB SCH ×4 (00:20→18:18)
--- NOTE | 2019-08-06 01:00 | NUR ---
RESP PATIENT OBSERVED TO BE BREATHING IN THE 30'S WITH ACCESSORY MUSCLE USE, PATIENT CURRENTLY ON IMV. NOTIFIED RT. Addendum: 08/06/19 at 0114 by PJ IRWIN RN RN DISREGARD NOTE. WRONG PATIENT.
--- NOTE | 2019-08-06 03:30 | NUR ---
Patient bath/linen change Patient given complete bath. Skin integrity assessed for any changes. Linens changed. Patient repositioned for comfort.
[2019-08-06 04:58] LABS: Basophils # (auto) 0.1 uL; Basophils % (auto) 1.5 % (0.0-2.0); Eosinophils # (auto) 0.3 uL; Monocytes # (auto) 0.9 uL; White Blood Cell 6.6 10^3/uL (4.4-10.8)
[2019-08-06] MEDS: DOPamine 1600MCG/ML D5W 250 ML IV SCH ×2 (05:00→15:06)
[2019-08-06 05:01] LABS: Eosinophils % (auto) 5.2 % (0.0-7.0); Hematocrit 35.7 % (41.0-53.0); Hemoglobin 11.6 g/dL (13.5-17.5); Lymphocytes # (auto) 1.1 uL; Lymphocytes % (auto) 17.3 % (10.0-50.0); Mean Corpuscular Hemoglobin 30.8 pg (28.0-32.0); Mean Corpuscular Hgb Conc. 32.5 g/dL (32.0-36.0); Mean Corpuscular Volume 94.8 fL (80.0-100.0); Monocytes % (auto) 12.9 % (0.0-12.0); Neutrophils # (auto) 4.2 uL; Neutrophils % (auto) 63.1 % (37.0-80.0); Nucleated Red Blood Cells % 0.1 %; Red Blood Cells 3.77 10^6/uL (4.5-5.90); Red Cell Distribution Width 19.7 % (11.8-14.3)
[2019-08-06 05:02] LABS: Platelet Count (auto) 532 10^3/uL (140-450)
[2019-08-06 05:17] LABS: Potassium 4.9 mmol/L (3.5-5.1)
[2019-08-06 05:29] LABS: Albumin 1.3 g/dL (3.4-5.0); BUN/Creatinine Ratio 17.9; Bilirubin, Total 22.1 mg/dL (0.2-1.0); Calcium 7.4 mg/dL (8.5-10.1); Phosphorus 2.7 mg/dL (2.5-4.90); Pre Albumin 10.9 mg/dL (20.0-40.0); Total Protein 6.6 g/dL (6.4-8.2)
[2019-08-06] MEDS: InsuLIN REG 1unit/0.01ml Soln (100units/ml) SC SCH ×5 (06:00→23:33)
--- NOTE | 2019-08-06 07:00 | NUR ---
Opening Shift Note: Report received from AGUEDA Mcgee. Patient sedation increased -off precedex, and Patient continues pressors. Family undecided on terminal wean or trach/peg. Note: See interventions for specific details on mechanical vent. and assessment.
--- NOTE | 2019-08-06 08:45 | NUR ---
Dr. Emery signed off case.
[2019-08-06] MEDS: APIXABAN 5 MG TAB PO SCH ×2 (10:22→22:02)
[2019-08-06] MEDS: FAMOTIDINE (10MG/ML) 2ML VL IV SCH ×2 (10:22→22:02)
[2019-08-06] MEDS: ALLOPURINOL 100 MG TAB PO SCH (10:22)
[2019-08-06] MEDS: SODIUM CHLOR 0.9% PF (SALINE LOCK) 10ML VIAL/SYR IV SCH ×2 (10:23→22:09)
[2019-08-06] MEDS: LEVOFLOXACIN 750MG 150 ML IV SCH (10:23)
[2019-08-06] MEDS: fentaNYL Drip 2500mCg/250mlNS 250 ML IV SCH ×2 (10:25→13:27)
[2019-08-06] MEDS: MIDAZOLAM DRIP 50 mg/50mL 50 ML IV SCH ×2 (10:25→13:27)
--- NOTE | 2019-08-06 10:35 | NUR ---
CHARTING ERROR, PT. PLACED ON CPAP MODE AT 1035 NOT 1125.
--- NOTE | 2019-08-06 11:05 | NUR ---
CHARTING ERROR, DISREGARD VENTILATOR CHARTING AT 1047, WRONG PT.
[2019-08-06] MEDS: NOREPINEPHRINE 8 MG/250ML KIT 250 ML IV SCH (11:15)
--- NOTE | 2019-08-06 11:15 | NUR ---
Dr. Garcia at bedside: Spoke with insurance , and the facility won't take patient with hear failure -he has to be on hospice. Plan is to CPAP patient if he does well place [id number] possibly extubate if t-piece tolerated.
--- NOTE | 2019-08-06 11:20 | NUR ---
[place] boots place on left foot for now until we find another boot for right foot.
--- NOTE | 2019-08-06 11:25 | NUR ---
PLACED PT. ON CPAP TRIAL, PER DR. JACKMAN'S V.O.. WITH PEEP 5 AND PS 8, FIO2 30%. ABG TO FOLLOW IN ONE HOUR.
--- NOTE | 2019-08-06 11:54 | NUR ---
ABG DONE ON CPAP MODE, RESULTS TO BE REPORTED TO DR. JACKMAN. PT. STILL A LITTLE GROGGY .
--- NOTE | 2019-08-06 12:05 | NUR ---
ORDERS RECEIVED, PER DR. JACKMAN, TO PLACE PT. ON SATISH-PIECE WHEN MORE AWAKE.
[2019-08-06] MEDS: DexMEDEtomidine 400 MCG in D5W 5% 96 ML IV SCH (13:29)
--- NOTE | 2019-08-06 13:40 | NUR ---
Patient on T-Piece, and tolerating well.
--- NOTE | 2019-08-06 13:40 | NUR ---
PLACED PT. ON SATISH-PIECE AT 30%, SPO2 99%,HR 65,RR=16, BS. ARE CLEAR AND DIMINISHED BILAT., WILL CONTINUE TO MONITOR RESP. STATUS. PT. NOW OPENING HIS EYES AND FOLLOWING SOME COMMANDS.
--- NOTE | 2019-08-06 14:19 | NUR ---
I received a call from Jennyfer-director of culture with [employer] [facility]-she has been in contact with patient's family about the plan of care for this member. Per Jennyfer-family to set time to meet with Dr. Garcia tomorrow 08/07/19 regarding the plan of care. Per Jennyfer-they do contract with [facility] if that is what the family chooses to do. Addendum: 08/06/19 at 1423 by Marti Oneal RN Jennyfer-[employer] [facility] phone number [phone]; cell phone [phone].
--- NOTE | 2019-08-06 14:44 | NUR ---
PT. ON SATISH-PIECE, NO RESP. DISTRESS NOTE. PT. TRYING TO TAKE OFF HIS MITTENS. VITALS ARE STABLE, HR= 81,RR=12,SP02=97% ON 30% FI02. NO CHANGES MADE, WILL CONTINUE MONITOR RESP. STATUS.
--- NOTE | 2019-08-06 16:20 | NUR ---
16 arabic NGT to the left nare inserted: last extubated patient aspirated in own gastric contents. Tolerated well after explained the rationale for NGT. Addendum: 08/06/19 at 1623 by Lisa Lebron RN discontinued OGT.
--- NOTE | 2019-08-06 18:26 | NUR ---
PT RECEIVED ON A T-PIECE WITH COOL AEROSOL AT 30% FIO2. PT IS ORALLY INTUBATED WITH AN 8.0 ETT AND SECURED BY JULIANN AT 24 UPPER LIP. [employer] [place] ADMINISTERED INLINE VIA O2 TUBING. VENT IS ON STANDBY AT BEDSIDE.
--- NOTE | 2019-08-06 18:52 | NUR ---
Endorsed care to AGUEDA Mcgee.
--- NOTE | 2019-08-06 19:45 | NUR ---
OPENING SHIFT NOTE PATIENT RECEIVED INTUBATED AND ON T-PIECE. EYES 3 AND SLUGGISH WITH YELLOW COLORATION TO SCLERA, OPEN SPONTANEOUSLY. COUGH AND GAG PRESENT. PATIENT MOVES ALL EXTREMITIES SPONTANEOUSLY. ANTHONY TRIPLE LUMEN PICC LINE RUNNING TPN AT 42ML/HR. SR WITH BBB, AT 69 BPM ON STRUCTURAL ENGINEERING DRAFTING OFFICER. LEVOPHED 1 MCG/MIN, DOPAMINE 10 MCG/KG/MIN. RIGHT AC PERIPHERAL IV SALINE FLUSHED AND LOCKED, RIGHT FA PERIPHERAL IV SALINE FLUSHED AND LOCKED. RESPIRATIONS EVEN AND UNLABORED, TOLERATING T-PIECE, LUNG SOUNDS CLEAR AND DIMINISHED IN THE BASES, O2 SAT 100%. TOURE CATHETER PATENT AND DRAINING RED TO ORANGE URINE TO GRAVITY. SKIN INTACT, OPTIFOAM GENTLE SACRAL DRESSING PLACED PREVENTATIVELY. SCD'S BILATERALLY. BED IN LOWEST LOCKED POSITION, HOB ELEVATED >30 DEGREES, NO INDICATION OF PAIN OBSERVED, PATIENT IN FULL VIEW OF NURSES STATION. WILL CONTINUE TO MONITOR.
[2019-08-06] MEDS ORDERED: TPN PER PHARMACY IV NR ×12 (20:00)
--- NOTE | 2019-08-06 20:53 | NUR ---
paged dr kirkland regarding ventilator settings, awaiting call back.
--- NOTE | 2019-08-06 21:10 | NUR ---
DR THOMPSON CALL BACK. ORDERS RECEIVED. WILL CONTINUE TO MONITOR.
[2019-08-06] MEDS: PROPOFOL 100 ML IV SCH (21:27)
--- NOTE | 2019-08-06 22:34 | NUR ---
DAUGHTER AT BEDSIDE UPDATED ON PLAN OF CARE, VERBALIZED UNDERSTANDING.
[2019-08-06] MEDS: LORazepam 2MG/ML-1ML VIAL IV PRN (23:34)
--- NOTE | 2019-08-06 23:54 | NUR ---
PATIENT RESTLESS CONTINUALLY REACHING FOR ETT ATTEMPTING TO PULL TUBE OUT. MEDICATED WITH ATIVAN ORDERED. RR 14 BPM, O2 SAT 99%. WILL CONTINUE TO MONITOR.
[2019-08-07] VITALS (93 sets, daily range): BP systolic 90–134; BP diastolic 32–102
[2019-08-07] MEDS: ALBUTEROL SULF 2.5 MG/0.5ML(0.5%) NEB SOLN NEB SCH ×6 (00:20→22:28)
[2019-08-07] MEDS: IPRATROPIUM BROM 0.5 MG/2.5ML INH SOL NEB SCH ×6 (00:20→22:28)
[2019-08-07] MEDS: ACETYLCYSTEINE 10 %(100MG/ML) SOL 4ML NEB SCH ×7 (00:20→22:28)
--- NOTE | 2019-08-07 00:23 | NUR ---
PT REMAINS ON T-PIECE WITH COOL AEROSOL AT 30% FIO2. SPO2 99%, HR 75, RR 12. MED NEB TX ADMINISTERED VIA O2 TUBING. NO SIGNS OF RESPIRATORY DISTRESS NOTED.
[2019-08-07] MEDS: DOPamine 1600MCG/ML D5W 250 ML IV SCH ×2 (01:26→16:09)
[2019-08-07 05:26] LABS: Basophils # (auto) 0.1 uL; Eosinophils # (auto) 0.3 uL; Eosinophils % (auto) 3.6 % (0.0-7.0); Mean Corpuscular Hgb Conc. 34.5 g/dL (32.0-36.0); Monocytes # (auto) 0.9 uL; White Blood Cell 7.2 10^3/uL (4.4-10.8)
[2019-08-07 05:28] LABS: Basophils % (auto) 1.8 % (0.0-2.0); Hematocrit 37.3 % (41.0-53.0); Hemoglobin 12.9 g/dL (13.5-17.5); Lymphocytes % (auto) 13.3 % (10.0-50.0); Mean Corpuscular Hemoglobin 31.9 pg (28.0-32.0); Mean Corpuscular Volume 92.4 fL (80.0-100.0); Neutrophils % (auto) 69.3 % (37.0-80.0); Nucleated Red Blood Cells % 0.1 %; Red Blood Cells 4.03 10^6/uL (4.5-5.90); Red Cell Distribution Width 19.9 % (11.8-14.3)
[2019-08-07 05:35] LABS: Platelet Count (auto) 570 10^3/uL (140-450)
--- NOTE | 2019-08-07 05:35 | NUR ---
CALLED DR THOMPSON UPDATED MD REGARDING AM ABG RESULTS, AND PATIENT CONDITION THROUGH THE NIGHT. PER DR THOMPSON WILL COME SEE PT THIS AM.
[2019-08-07 05:48] LABS: Albumin 1.7 g/dL (3.4-5.0); BUN/Creatinine Ratio 12.8; Calcium 8.8 mg/dL (8.5-10.1)
[2019-08-07 05:53] LABS: Potassium 2.9 mmol/L (3.5-5.1)
[2019-08-07] MEDS: ACCU-CHEK COMFORT CURVE STRIP VI SCH ×4 (05:54→23:48)
[2019-08-07] MEDS: InsuLIN REG 1unit/0.01ml Soln (100units/ml) SC SCH ×4 (05:54→23:52)
--- NOTE | 2019-08-07 06:00 | NUR ---
PAGED DR PEREZ REGARDING CRITICAL POTASSIUM OF 2.9, AWAITING CALL BACK
--- NOTE | 2019-08-07 06:20 | NUR ---
CALLED DR RICK REGARDING POTASSIUM 2.9. AWARE, NEW ORDERS IN PLACE.
[2019-08-07] MEDS ORDERED: POTASSIUM EFFERVESENT TAB 25 MEQ GT ONE ×2 (06:30→10:00)
[2019-08-07 06:54] LABS: Total Protein 7.6 g/dL (6.4-8.2)
[2019-08-07 06:55] LABS: Phosphorus 2.7 mg/dL (2.5-4.90)
--- NOTE | 2019-08-07 07:22 | NUR ---
PLACED PT ON VENTILATOR TO OBTAINED NIF AND VC PARAMETERS. PT DONNIE. WELL. NIF AND VC PARAMETERS REPORTED TO AGUEDA BLOOM. WAITING FOR DR. THOMPSON TO GIVE FURTHER ORDERS.
--- NOTE | 2019-08-07 07:37 | NUR ---
SPOKE WITH DR Latrice THOMPSON ON PHONE. DR AWARE OF NIF, VC, AND LEAK TEST. DR EXAMINED PATIENT AT BEDSIDE JUST PRIOR TO SPEAKING WITH HIM ON PHONE. DR GAVE NEW ORDERS TO EXTUBATE TO COOL AIR MIST MASK, USE BIPAP 12/5 IF RESPIRATORY DISTRESS OCCURS AFTER BIPAP AND ORDER TO CHECK POTASSIUM LEVEL THIS EVENING. ROHIT RT AWARE AND PATIENT FOLLOWS COMMANDS IN [place].
--- NOTE | 2019-08-07 07:55 | NUR ---
EXTUBATED PT AT THIS TIME, AGUEDA BLOOM AT BEDSIDE. PLACED PT ON CA 10L AT 35% FIO2. PT DONNIE. WELL. BS ARE COARSE. SX LARGE AMOUNTS OF YELLOW SECRETIONS. NO STRIDOR NOTED. WILL CONTINUE TO MONITOR PT.
--- NOTE | 2019-08-07 07:55 | NUR ---
EXTUBATED BY RT PER DR ORDER, TOLERATED WELL AND RT PLACED ON COOL AIR MIST MASK.
--- NOTE | 2019-08-07 08:50 | NUR ---
SPOKE WITH DR JACKMAN, DR RUBIO OF EXTUBATION AND CURRENT RESPIRATORY STATUS WNL
--- NOTE | 2019-08-07 09:16 | NUR ---
PAGED RT FOR EARLY BREATHING TREATMENT DUE TO EXCESS RESPIRATORY SECRETIONS AND PATIENT UNABLE TO FULLY COUGH UP SECRETIONS AT THIS TIME. PATIENT RT ROHIT AT BEDSIDE AND ASSESSED PATIENT.
--- NOTE | 2019-08-07 09:20 | NUR ---
PAGED DR JACKMAN TO CHANGE BREATHING TREATMENTS TO Q4H FROM Q6H WITH CPT AND NTS PRN. PATIENT SOMEWHAT RESTLESS, ROHIT RT AT BEDSIDE STARTING BREATHING TREATMENTS EARLY. AWAITING CALL BACK FROM DR JACKMAN.
--- NOTE | 2019-08-07 09:24 | NUR ---
SPOKE WITH DR JACKMAN NEW ORDERS RECEIVED, AWARE RN CALLED DTR WITH NO ANSWER AND UNABLE TO LEAVE VOICEMAIL DUE TO INBOX FULL
--- NOTE | 2019-08-07 09:30 | NUR ---
RT AT BEDSIDE AND PLACED PATIENT ON BIPAP DUE TO ANXIETY, HIGH RR, AND INCREASED SECRETIONS. SUCTIONING NEEDED.
[2019-08-07] MEDS ORDERED: POTASSIUM EFFERVESENT TAB 25 MEQ ONE (09:37)
[2019-08-07] MEDS: FAMOTIDINE (10MG/ML) 2ML VL IV SCH ×2 (09:39→21:38)
[2019-08-07] MEDS: LORazepam 2MG/ML-1ML VIAL IV PRN (09:39)
[2019-08-07] MEDS: LEVOFLOXACIN 750MG 150 ML IV SCH (09:39)
[2019-08-07] MEDS: SODIUM CHLOR 0.9% PF (SALINE LOCK) 10ML VIAL/SYR IV SCH ×2 (09:39→22:00)
[2019-08-07] MEDS: ALLOPURINOL 100 MG TAB PO SCH (09:40)
[2019-08-07] MEDS: ONDANSETRON HCL 4 MG/2 ML VIAL IV PRN (09:47)
[2019-08-07] MEDS: APIXABAN 5 MG TAB PO SCH ×2 (10:00→21:38)
--- NOTE | 2019-08-07 10:17 | NUR ---
DR JACKMAN AT BEDSIDE AND DR HERNÁNDEZ CURRENTLY WITH ALEJANDRO BEE ON PHONE WHO CALLED UNIT
--- NOTE | 2019-08-07 11:00 | NUR ---
ALEJANDRO BEE AT BEDSIDE, DR JACKMAN SPOKE WITH HER AT BEDSIDE REGARDING STATUS
[2019-08-07] MEDS: NOREPINEPHRINE 8 MG/250ML KIT 250 ML IV SCH (11:15)
--- NOTE | 2019-08-07 11:34 | NUR ---
Nutrition Consult and Follow-Up Notes Wt. 55.9 kg today. Noted 6.1 kg weight loss in last 2 days likely d/t fluid loss aeb negative I & Os for past few days. Pt's successfully extubated, on BiPAP, asleep, no immediate family members at bedside during rounds earlier. Pt's remains NPO, currently on PN support @ 42 ml/hr providing 1050 kcal, 50 gms pro, 850 NPCs. Pt with inadequate PN support d/t low initiation rate delivery of less concentrated formula aeb current PN infusion meets 54% to 64% of est caloric needs and 50% to 60% of est protein needs. Noted pt's to receive tonight another TPN 50 ml/hr providing 1260 kcal, 60 gms pro, 1020 NPCs. Estimated needs recalculated based on CBW (55.9 kg)- 1650 kcal 1950 kcal (30-35 kcal/kgBW), 67 to 101 g protein (1.2-1.8 g/kg BW). Will continue to monitor pertinent labs and reassess nutrient need prn Labs: Gluc 228 H, K 2.9 L, Tot manuel 24.0 H, ALT 213 H, ALT 185 H, ALP 287 H; Alb 1.6 L; Prealb 12.8 L, Trig 218 H Skin: Alex 13, mod risk, pt's L ear scab, jaundiced per RN doc. Pls refer to latest major assembler's notes for further details re: tx plans. GI: Pt's no bowel activity since 07/15/19, had 175 ml Gastric drainage output this morning per RN documentations PES: Altered nutrition related lab values r/t hepatic dysfunction and acute/chronic medical conditions aeb severely elev LFT's, hypoalb Increased nutrient needs r/t current medical condition aeb intubated, sedated, severe hypoalbuminemia, NPO with PN support. Will continue to monitor NPO status, PN tolerance, pertinent labs, skin status and weight trends. F/u in 2 to 3 days. Additional Recommendation: 1.) If still NPO with PN support, consider gradual increase on calories and protein to meet at least 75% of est nutrient needs if medically appropriate. 2.) Advance gradually to oral diet when medically appropriate. 3.) Refer to RD for further nutrition educ. and weight monitoring upon discharge. 4.) Continue current plan of care. Thank you for this consult.
--- NOTE | 2019-08-07 13:00 | NUR ---
RESTING COMFORTABLY ON BIPAP NO SIGNS OF RESP DISTRESS
[2019-08-07] MEDS: MORPHINE SULF INJ 2 MG/ML SYRINGE 1ML IV PRN (16:10)
--- NOTE | 2019-08-07 16:10 | NUR ---
MORPHINE GIVEN ORDERED FOR C/O BACK PAIN PER TRANSLATION FROM NIECES WHO ARE AT BEDSIDE
--- NOTE | 2019-08-07 18:00 | NUR ---
SPOKE WITH DR RAMIRO OLEA PATIENT STABLE ON BIPAP MASK AND NEW ORDERS RECEIVED.
[2019-08-07] MEDS ORDERED: LORazepam 2MG/ML-1ML VIAL IV PRN (18:30)
--- NOTE | 2019-08-07 19:24 | NUR ---
REPORT GIVEN TO LAMINATION INSPECTOR RN
--- NOTE | 2019-08-07 19:35 | NUR ---
OPENING SHIFT NOTE PATIENT RECEIVED ON BIPAP WITH RT AT BEDSIDE. EYES 3 AND BRISK, OPEN SPONTANEOUSLY. COUGH AND GAG PRESENT, SPONTANEOUSLY COUGHING UP SECRETIONS AND SUCTIONED ORALLY. PATIENT MOVES ALL EXTREMITIES SPONTANEOUSLY AND FOLLOWS SIMPLE COMMANDS. ANTHONY TRIPLE LUMEN PICC LINE RUNNING TPN AT 50ML/HR. SR WITH BBB, AT 70 BPM ON DAY CARE DIRECTOR. RIGHT AC PERIPHERAL IV SALINE FLUSHED AND LOCKED. RESPIRATIONS EVEN AND UNLABORED, LUNG SOUNDS CLEAR AND DIMINISHED IN THE BASES, O2 SAT 100%. TOURE CATHETER PATENT AND DRAINING REDDISH URINE TO GRAVITY. SKIN INTACT, OPTIFOAM GENTLE SACRAL DRESSING PLACED PREVENTATIVELY. SCD'S BILATERALLY. FAMILY AT BEDSIDE AND UPDATED ON PLAN OF CARE, VERBALIZED UNDERSTANDING. BED IN LOWEST LOCKED POSITION, HOB ELEVATED >30 DEGREES, NO INDICATION OF PAIN OBSERVED, PATIENT IN FULL VIEW OF NURSES STATION. WILL CONTINUE TO MONITOR.
[2019-08-07] MEDS ORDERED: TPN PER PHARMACY IV NR ×9 (20:00)
--- NOTE | 2019-08-07 20:00 | NUR ---
FAMILY VISIT PT SON AND DAUGHTER TO UNIT FOR VISIT. PLAN OF CARE DISCUSSED.
[2019-08-07] MEDS ORDERED: chlorproMAZINE INECTION 25 MG in SODIUM CHL 0.9% 50 ML IV ONE (22:30)
--- NOTE | 2019-08-07 22:32 | NUR ---
PAGED HOSPITALIST REGARDING PATIENT WITH CONTINUAL HICCUPS AND RESTLESSNESS. ORDERS RECEIVED, WILL CARRY OUT AND CONTINUE TO MONITOR.
--- NOTE | 2019-08-07 23:34 | NUR ---
RESTLESSNESS PATIENT CONTINUES TO BE RESTLESS, ATTEMPTING TO GET OUT OF BED AND PULL AT NG TUBE. NOT FOLLOWING SIMPLE COMMANDS ATIVAN GIVEN ORDERED. WILL CONTINUE TO MONITOR.
[2019-08-08] VITALS (24 sets, daily range): BP systolic 88–121; BP diastolic 48–75
[2019-08-08] MEDS: MORPHINE SULF INJ 2 MG/ML SYRINGE 1ML IV PRN ×3 (01:50→22:58)
--- NOTE | 2019-08-08 01:50 | NUR ---
PAIN PT CONTINUES TO BE RESTLESS. GRIMACING. PT ASSUMED TO BE HAVING PAIN. MEDICATED WITH MORPHINE SIVP PER ORDER (SEE EMAR)
[2019-08-08] MEDS: ALBUTEROL SULF 2.5 MG/0.5ML(0.5%) NEB SOLN NEB SCH ×6 (02:26→22:19)
[2019-08-08] MEDS: IPRATROPIUM BROM 0.5 MG/2.5ML INH SOL NEB SCH ×6 (02:26→22:19)
[2019-08-08] MEDS: ACETYLCYSTEINE 10 %(100MG/ML) SOL 4ML NEB SCH ×6 (02:26→22:19)
[2019-08-08 04:24] LABS: Basophils # (auto) 0.1 uL; Eosinophils # (auto) 0.2 uL; Hemoglobin 12.3 g/dL (13.5-17.5); Nucleated Red Blood Cells % 0.1 %
[2019-08-08 04:26] LABS: Basophils % (auto) 1.2 % (0.0-2.0); Eosinophils % (auto) 2.1 % (0.0-7.0); Hematocrit 36.3 % (41.0-53.0); Lymphocytes # (auto) 1.2 uL; Lymphocytes % (auto) 14.2 % (10.0-50.0); Mean Corpuscular Hemoglobin 31.4 pg (28.0-32.0); Mean Corpuscular Hgb Conc. 33.8 g/dL (32.0-36.0); Mean Corpuscular Volume 92.9 fL (80.0-100.0); Monocytes # (auto) 0.9 uL; Monocytes % (auto) 10.4 % (0.0-12.0); Neutrophils # (auto) 6.3 uL; Neutrophils % (auto) 72.1 % (37.0-80.0); Platelet Count (auto) 513 10^3/uL (140-450); Red Blood Cells 3.91 10^6/uL (4.5-5.90); Red Cell Distribution Width 19.8 % (11.8-14.3); White Blood Cell 8.7 10^3/uL (4.4-10.8)
[2019-08-08 04:46] LABS: INR 1.28 (0.9-1.15); Partial Thromboplastin Time 33.3 sec (23.64-32.05)
[2019-08-08] MEDS: ACCU-CHEK COMFORT CURVE STRIP VI SCH ×3 (05:13→18:03)
[2019-08-08] MEDS: InsuLIN REG 1unit/0.01ml Soln (100units/ml) SC SCH ×3 (05:13→18:03)
[2019-08-08 06:53] LABS: Albumin 1.7 g/dL (3.4-5.0); BUN/Creatinine Ratio 14.9; Calcium 9.1 mg/dL (8.5-10.1); Magnesium 2.4 mg/dL (1.6-2.6); Potassium 3.2 mmol/L (3.5-5.1)
[2019-08-08 07:05] LABS: Bilirubin, Total 23.8 mg/dL (0.2-1.0); Total Protein 7.4 g/dL (6.4-8.2)
[2019-08-08 08:08] LABS: Phosphorus 2.8 mg/dL (2.5-4.90)
[2019-08-08] MEDS: APIXABAN 5 MG TAB PO SCH ×2 (09:55→22:00)
[2019-08-08] MEDS: ALLOPURINOL 100 MG TAB PO SCH (10:03)
[2019-08-08] MEDS: LEVOFLOXACIN 750MG 150 ML IV SCH (10:08)
[2019-08-08] MEDS: SODIUM CHLOR 0.9% PF (SALINE LOCK) 10ML VIAL/SYR IV SCH ×2 (10:08→22:05)
[2019-08-08] MEDS: FAMOTIDINE (10MG/ML) 2ML VL IV SCH ×2 (10:08→22:04)
[2019-08-08] MEDS ORDERED: POTASSIUM CHL 20MEQ/100ML 100 ML IV ONE ×2 (10:45→15:00)
[2019-08-08] MEDS ORDERED: FUROSEMIDE 20 MG/2 ML VIAL IV ONE (10:45)
[2019-08-08] MEDS: POTASSIUM CHL 20MEQ/100ML 100 ML IV SCH ×2 (11:29→13:00)
--- NOTE | 2019-08-08 11:40 | NUR ---
MD Dr. Alvares at bedside updated on patient condition with new orders received, MD to input into system. MD spoke to patients daughter regarding plan of care and questions/concerns answered.
--- NOTE | 2019-08-08 14:15 | NUR ---
LINEN CHANGE Patients linen changed done at this time. Patient got very restless and agitated started to swing at this RN and student RN Joesph. Mittens placed on patient to prevent self harm and to prevent patient from pulling on equipment.
--- NOTE | 2019-08-08 14:30 | NUR ---
FAMILY Patients son, Nakul, (who had the correct password to come in to visit patient) at bedside updated on patient condition and is requesting that this RN call his sister Sulema because patient is asking for her. Called Sulema and states " Will be on her way there."
--- NOTE | 2019-08-08 15:03 | NUR ---
Respiratory note: AFTER A FEW MINS OF CPT PT PUSHED AWAY PERCUSSOR AND REFUSED CPT. FAMILY AT BEDSIDE.
[2019-08-08] MEDS ORDERED: TPN PER PHARMACY IV NR ×9 (20:00)
--- NOTE | 2019-08-08 20:15 | NUR ---
FAMILY AT BEDSIDE UPDATED ON PT'S STATUS. PLAN OF CARE EXPLAINED, VERBALIZED UNDERSTANDING.
--- NOTE | 2019-08-08 22:00 | NUR ---
VANCE DÍAZ PATIENT HAS BROWNISH DRAINAGE FROM NGT. CONNECTED TO LIS .
[2019-08-08] MEDS: CEFEPIME 1 GM in SODIUM CHL 0.9% 50 ML IV SCH (22:06)
--- NOTE | 2019-08-08 22:19 | NUR ---
Respiratory note: CPT NOT GIVEN WITH MED NEB TX. PT IS EXTREMELY AGITATED AND KEEPS FIGHTING TO TAKE OFF MED NEB TX. DAUGHTERS AT BEDSIDE TRIED TO HELP CALM AND HOLD HIS HANDS DOWN DURING TX.
--- NOTE | 2019-08-08 23:00 | NUR ---
PAIN MED GIVEN PATIENT IS AAOX 1, SO RESTLESS, TRYING TO COME OUT OF THE BED. PATIENT'S DAUGHTER (ROHIT)AT BEDSIDE. REPOSITIONED THE PATIENT. MORPHINE 2 MG IV GIVEN. VITAL SIGNS ARE STABLE.
[2019-08-08] MEDS ORDERED: HALOPERIDOL LACTATE 5 MG/ML INJ VIAL ONE (23:34)
--- NOTE | 2019-08-08 23:40 | NUR ---
HOSPITALIST PATIENT IS SO RESTLESS EVEN AFTER THE PAIN MED, TRYING TO COME OUT OF THE BED, AND PULLING LINES. PER FARHAD ROMEO , YESTERDAY ATIVAN DIDN'T HELP TO CALM DOWN THE PATIENT. VERN LINTON NOTIFIED AND SHE ORDERED FOR HALDOL 5 MG IMX1.
[2019-08-08] MEDS ORDERED: HALOPERIDOL LACTATE 5 MG/ML INJ VIAL IM ONE (23:45)
[2019-08-09] VITALS (23 sets, daily range): BP systolic 94–127; BP diastolic 56–86
[2019-08-09] MEDS: ACCU-CHEK COMFORT CURVE STRIP VI SCH ×4 (00:16→18:03)
[2019-08-09] MEDS: InsuLIN REG 1unit/0.01ml Soln (100units/ml) SC SCH ×4 (00:17→18:19)
--- NOTE | 2019-08-09 01:00 | NUR ---
SOFT WRIST RESTRAINTS PATIENT IS SO RESTLESS, TRYING TO COME OUT OF THE BED, TRYING TO PULL OUT TOURE CATH AND PICC LINE. MITTENS WERE IN PLACE, BUT REMOVED WITH TEETH. HOSPITALIST WAS INFORMED AND HALDOL 5 MG WAS GIVEN BUT IT DIDN'T HELP. BILATERAL SOFT WRIST RESTRAINTS APPLIED ORDERED BY VERN BECKMAN NP. Addendum: 08/09/19 at 0209 by Miranda Pinon RN ERROR ON CHARTING MITTENS WERE IN PLACE, BUT PATIENT REMOVED IT WITH TEETH
--- NOTE | 2019-08-09 01:00 | NUR ---
LT.WRIST ECCHYMOSIS LT.WRIST ECCHYMOSIS PRESENT BEFORE APPLYING SOFT WRIST RESTRAINT.
[2019-08-09] MEDS: IPRATROPIUM BROM 0.5 MG/2.5ML INH SOL NEB SCH ×6 (02:08→21:48)
[2019-08-09] MEDS: ALBUTEROL SULF 2.5 MG/0.5ML(0.5%) NEB SOLN NEB SCH ×6 (02:08→21:49)
[2019-08-09] MEDS: ACETYLCYSTEINE 10 %(100MG/ML) SOL 4ML NEB SCH ×6 (02:08→21:49)
--- NOTE | 2019-08-09 04:00 | NUR ---
CONTINUE RESTRAINTS REORIENTED THE PATIENT.TEACHING IS GIVEN.RESTRAINTS REMOVED AND ASSESSED THE NEED FOR CONTINUING RESTRAINTS.PATIENT ATTEMPTS TO COME OUT OF THE BED, AND TRYING TO PULL OUT TOURE CATHETER AND PICC LINE . SKIN ASSESSMENT DONE, INTACT. REPOSITIONED THE PATIENT. RESTRAINTS REAPPLIED.
[2019-08-09] MEDS: MORPHINE SULF INJ 2 MG/ML SYRINGE 1ML IV PRN (04:14)
--- NOTE | 2019-08-09 06:15 | NUR ---
RESTRAINTS REMOVED PATIENT CALM. REORIENTED THE PATIENT.TEACHING IS GIVEN.RESTRAINTS REMOVED AND ASSESSED THE NEED FOR CONTINUING RESTRAINTS.MITTENS APPLIED. PATIENT IS NO MORE TRYING TO COME OUT OF THE BED. REPOSITIONED THE PATIENT.
[2019-08-09 06:37] LABS: Basophils # (auto) 0.1 uL; Eosinophils # (auto) 0.3 uL; Hematocrit 36.6 % (41.0-53.0); Lymphocytes # (auto) 1.2 uL; Nucleated Red Blood Cells % 0.1 %
[2019-08-09 06:39] LABS: Basophils % (auto) 0.9 % (0.0-2.0); Eosinophils % (auto) 2.8 % (0.0-7.0); Hemoglobin 12.8 g/dL (13.5-17.5); Lymphocytes % (auto) 11.5 % (10.0-50.0); Mean Corpuscular Hemoglobin 32.4 pg (28.0-32.0); Mean Corpuscular Hgb Conc. 34.9 g/dL (32.0-36.0); Mean Corpuscular Volume 92.6 fL (80.0-100.0); Monocytes # (auto) 1.1 uL; Monocytes % (auto) 10.4 % (0.0-12.0); Neutrophils % (auto) 74.4 % (37.0-80.0); Red Blood Cells 3.95 10^6/uL (4.5-5.90); White Blood Cell 10.7 10^3/uL (4.4-10.8)
[2019-08-09 06:48] LABS: Red Cell Distribution Width 20.4 % (11.8-14.3)
--- NOTE | 2019-08-09 07:00 | NUR ---
ASSESSMENT PATIENT IS AWAKE ALERT AND CALM, NO MORE TRYING TO COME OUT OF THE BED AND NOT PULLING LINES.
[2019-08-09 07:09] LABS: Albumin 1.8 g/dL (3.4-5.0); Calcium 9.2 mg/dL (8.5-10.1); Magnesium 2.3 mg/dL (1.6-2.6); Potassium 3.9 mmol/L (3.5-5.1)
[2019-08-09 07:20] LABS: BUN/Creatinine Ratio 20.4; Bilirubin, Total 26.7 mg/dL (0.2-1.0); Phosphorus 2.7 mg/dL (2.5-4.90); Total Protein 7.7 g/dL (6.4-8.2)
[2019-08-09] MEDS: DOPamine 1600MCG/ML D5W 250 ML IV SCH (08:18)
[2019-08-09 08:46] LABS: Platelet Count (auto) 576 10^3/uL (140-450)
--- NOTE | 2019-08-09 09:23 | NUR ---
Resumed care at 0730, orders reviewed and ongoing assessments being done. Being treated for multiple problems. In bed upon arrival awake and able to state name and birthday. Aware of being in the hospital but does not know location. Oriented to staff, place, situation and plan of care. S/P extubation on 08-07-19 and in no acute respiratory distress and requiring no supplemental oxygen, maintaining pulse oximetry at 100%. Encouraged to participate with am care and able to brush his teeth with some assistance. Requires frequent monitoring, forgetful and impulsive.
[2019-08-09] MEDS: APIXABAN 5 MG TAB PO SCH ×2 (10:00→21:43)
[2019-08-09] MEDS: FAMOTIDINE (10MG/ML) 2ML VL IV SCH ×2 (10:08→21:42)
[2019-08-09] MEDS: ALLOPURINOL 100 MG TAB PO SCH (10:08)
[2019-08-09] MEDS: SODIUM CHLOR 0.9% PF (SALINE LOCK) 10ML VIAL/SYR IV SCH ×2 (10:08→21:43)
[2019-08-09] MEDS: CEFEPIME 1 GM in SODIUM CHL 0.9% 50 ML IV SCH ×2 (10:08→21:42)
--- NOTE | 2019-08-09 11:39 | NUR ---
Has become very restless in bed and constantly moving and scooting down. Wanting to get out of bed. Michael RN (charge nurse) at bedside with him at 1055 and assisted him to the edge of the bed. Able to hold self up with no complaints. Required to staff members to assist out of bed to chair at 1100 am, lower extremities, with decrease in strength. Reinforced importance of not trying to get up by himself. Skin care and back massage given while sitting in chair. Dr. Alvares in to round for Hospitalist today. Discussed condition and plan of care. Made her aware that Eliquis has been held for 2 days. Continue to hold for now secondary to liver failure. Outstanding swallow evaluation. Ordered on 08-07-19. Contacted the PT department and spoke to Ellyn. Reordered and she will contact Gianna (speech therapist).
--- NOTE | 2019-08-09 15:07 | NUR ---
Returned back to bed at 1315 without incident. Required two staff members, both legs very weak. In bed and can follow direction, but continues to have episodes of forgetfulness and disorientation. Requires frequent close monitoring.
--- NOTE | 2019-08-09 15:52 | NUR ---
Nutrition Follow-Up Notes Wt. 55.7 kg today. Pt's restless, no immediate family members at bedside except for RN, RT during rounds earlier. Pt's remains NPO, currently on PN support @ 58 ml/hr providing 1470 kcal, 70 gms pro, 1190 NPCs. Pt with adequate PN support d/t mod initiation rate delivery of less concentrated formula aeb current PN infusion meets 75% to 89% of est caloric needs, however meets 69% to 104% of est protein needs. Noted pt's to receive tonight another TPN at same rate and nutrient concentration. Estimated needs recalculated based on CBW (55.9 kg)- 1650 kcal 1950 kcal (30-35 kcal/kgBW), 67 to 101 g protein (1.2-1.8 g/kg BW). Will continue to monitor pertinent labs and reassess nutrient need prn Labs: Gluc 151 H, Cl 109 H, BUN 21 H, Tot manuel 26.7 H, ALT 291 H, ALT 199 H, ALP 277 H; Alb 1.8 L; Prealb 10.9 L, Trig 222 H Skin: Alex 13, mod risk, pt's L ear scab, jaundiced per RN doc. Pls refer to latest ore trimmer's notes for further details re: tx plans. GI: Pt's no bowel activity since 07/15/19, had 150 ml Gastric drainage output this morning per RN documentations PES: Altered nutrition related lab values r/t hepatic dysfunction and acute/chronic medical conditions aeb severely elev LFT's, hypoalb Increased nutrient needs r/t current medical condition aeb intubated, sedated, severe hypoalbuminemia, NPO with PN support. Will continue to monitor NPO status, PN tolerance, pertinent labs, skin status and weight trends. F/u in 2 to 3 days. Additional Recommendation: 1.) If still NPO with PN support, consider gradual increase on protein to meet at least 75% of est nutrient needs if medically appropriate. 2.) Advance gradually to oral diet when medically appropriate. 3.) Refer to RD for further nutrition educ. and weight monitoring upon discharge. 4.) Continue current plan of care.
--- NOTE | 2019-08-09 16:49 | NUR ---
SWALLOW EVALUATED. PATIENT ABLE TO FOLLOW COMMANDS. PATIENT HAS OWN TEETH UPPER AND LOWER. FAMILY PRESENT AND TRANSLATED INTO ALBANIAN. PATIENT ABLE TO TOLERATE PUREE DIET TEXTURE WITH THIN LIQUIDS WITH NO OVERT SIGNS OR SYMPTOMS OF ASPIRATION. NURSING NOTIFIED.
--- NOTE | 2019-08-09 17:27 | NUR ---
Gianna speech therapist was in for swallow evaluation. Passed and recommended puree diet with clear liquids. Notified Dr. Alvares and made her aware. Okay to initiate puree diet and to discontinue NGT. NGT removal NGT removed per MD/C UNIX DEVELOPER order following explanation and instruction to patient. Patient verbalized understanding prior to removal. Patient tolerated well. Daughter and son at bedside visiting.
--- NOTE | 2019-08-09 18:01 | NUR ---
Respiratory note: At bedside for med neb tx. Pt refusing CPT at this time. pt states he was bathed today and has an upset stomach. RN Mariza at bedside and made aware of change. BS are diminished t/o and fine course in bilateral bases. RT name and pager assignment written on pts room board. Will continue to monitor.
--- NOTE | 2019-08-09 18:52 | NUR ---
Assisted with dinner. Only ate a few bites of the mashed potatoes and puree peaches. Swallowed with no difficulty. Tolerating liquids.
--- NOTE | 2019-08-09 19:29 | NUR ---
CARE ASSUMED. ASSESSMENT: ALERT AND ORIENTED TO PERSON. RE-ORIENTED TO DATE AND TIME. PUPILS 4+ BILATERALLY. SPEECH CLEAR, BUT WHISPERS. NO ASYMMETRY OF FACE. MOVES ALL EXTREMITIES, GENERALIZED WEAKNESS PRESENT. SWALLOWS WATER WITH NO DIFFICULTY CARDIAC HR - 70-80'S, OCCASIONAL PVC'S. SBP 99/65, TO LEFT UPPER ARM. NO EDEMA PRESENT. G.I - ABDOMEN SOFT WITH HYPOACTIVE BOWEL SOUNDS. NO B.M AT THIS TIME G.U - TOURE TO DD WITH ORANGE URINE. SM. AMT. SKIN - DRY, WARM, JAUNDICED. SCLERA EDEMA IV - PICC LINE ANTHONY, INTACT
[2019-08-09] MEDS ORDERED: TPN PER PHARMACY IV NR ×7 (20:00)
--- NOTE | 2019-08-09 20:30 | NUR ---
I.S - [id number] CC EACH TIME. COOPERATIVE.
--- NOTE | 2019-08-09 22:36 | NUR ---
STRONG, PRODUCTIVE COUGH, THICK, YELLOW SPUTUM
[2019-08-10] VITALS (12 sets, daily range): BP systolic 90–115; BP diastolic 58–73
--- NOTE | 2019-08-10 | NUR ---
CONFUSED, CONTINUES TO PULL ON LINES AND TUBES, REORIENTED FREQUENTLY. BELIEVES HE SEES FAMILY MEMBERS OUTSIDE HIS ROOM.
[2019-08-10] MEDS: IPRATROPIUM BROM 0.5 MG/2.5ML INH SOL NEB SCH ×5 (02:18→18:54)
[2019-08-10] MEDS: ALBUTEROL SULF 2.5 MG/0.5ML(0.5%) NEB SOLN NEB SCH ×5 (02:18→18:55)
[2019-08-10] MEDS: ACETYLCYSTEINE 10 %(100MG/ML) SOL 4ML NEB SCH ×5 (02:27→18:55)
[2019-08-10] MEDS: DOPamine 1600MCG/ML D5W 250 ML IV SCH (04:27)
[2019-08-10 04:46] LABS: Albumin 1.8 g/dL (3.4-5.0); BUN/Creatinine Ratio 24.5; Calcium 9.1 mg/dL (8.5-10.1); Magnesium 2.5 mg/dL (1.6-2.6); Potassium 3.5 mmol/L (3.5-5.1)
[2019-08-10 04:58] LABS: Bilirubin, Total 26.2 mg/dL (0.2-1.0); Phosphorus 3.6 mg/dL (2.5-4.90); Total Protein 7.7 g/dL (6.4-8.2)
--- NOTE | 2019-08-10 05:00 | NUR ---
HAS NOT SLEPT, CONTINUES CONFUSED. RE-ORIENTED.
[2019-08-10] MEDS: ACCU-CHEK COMFORT CURVE STRIP VI SCH ×2 (06:10)
[2019-08-10] MEDS: InsuLIN REG 1unit/0.01ml Soln (100units/ml) SC SCH ×2 (06:11)
--- NOTE | 2019-08-10 06:57 | NUR ---
Respiratory note: PT REFUSED CPT AT THIS TIME. PT ALSO ENDED MED NEB TX EARLY PULLING IT OFF AND SWATTING AWAY AT IT. RN WILL BE INFORMED OF REFUSAL.
--- NOTE | 2019-08-10 07:21 | NUR ---
REPORT TO JAMAL ROMEO
[2019-08-10] MEDS: POTASSIUM CHL 20MEQ/100ML 100 ML IV SCH ×2 (09:33→18:35)
[2019-08-10] MEDS: CEFEPIME 1 GM in SODIUM CHL 0.9% 50 ML IV SCH ×2 (09:35→21:53)
[2019-08-10] MEDS: ALLOPURINOL 100 MG TAB PO SCH (09:36)
[2019-08-10] MEDS: SODIUM CHLOR 0.9% PF (SALINE LOCK) 10ML VIAL/SYR IV SCH ×2 (09:41→21:53)
[2019-08-10] MEDS ORDERED: APIXABAN 5 MG TAB PO SCH (10:00)
--- NOTE | 2019-08-10 10:55 | NUR ---
Respiratory note: PT REFUSED CPT BUT COMPLETED HHN TX BUT WOULD TAKE MASK OFF THROUGHOUT HHN TX.
[2019-08-10] MEDS: Ensure Enlive Strawberry 8oz Bottle PO SCH ×2 (12:00→18:00)
--- NOTE | 2019-08-10 13:39 | NUR ---
MALNUTRITION PT REFUSED ALL BREAKFAST AND ALL LUNCH AND HIS BOOST. HE IS ONLY DRINKING LITTLE SIPS OF WATER WATER.
--- NOTE | 2019-08-10 14:57 | NUR ---
Respiratory note: PT REFUSED CPT.
[2019-08-10] MEDS ORDERED: ASPirin-EC 81 mg tab PO ONE (15:15)
--- NOTE | 2019-08-10 18:50 | NUR ---
RT NOTE: PT ONLY TOLERATED MED NEB TX FOR 3 MINUTES AND REFUSED CPT. PT BECAME AGITATED AND WOULDN'T FINISH MED NEB TX. PT ON ROOM AIR SPO2 100%, NO RESPIRATORY DISTRESS NOTED AT THIS TIME.
--- NOTE | 2019-08-10 19:00 | NUR ---
REPORT GIVEN TO ONCOMING SHIFT PT REMAINS UP IN CHAIR SINCE THIS AM . STILL HAS NOT EATEN OR DRANK ANYTHING. HAS FAILURE TO THRIVE,. MD AWARE. PT STILL PENDING TO VOID, SINCE TOURE WAS REMOVED THIS AM, BUT PT, NOT EATING OR DRINKING MUCH. STILL SEEN THINGS THAT ARE NOT THERE.
--- NOTE | 2019-08-10 19:30 | NUR ---
REPORT RECEIVED, ASSUMED CARE.
--- NOTE | 2019-08-10 20:30 | NUR ---
REPORT RECEIVED FROM HEARING STENOGRAPHER. AWAITING PATIENT TRANSFER TO FLOOR.
--- NOTE | 2019-08-10 20:40 | NUR ---
REPORT GIVEN TO FLOOR [facility] ICU patient trans to floor SBAR faxed and confirmed receipt by MT. MADIE ANG transfered to [facility] via WHEELCHAIR on mangle catcher and portable 02. All patient medications and personal belongings transfered with patient to receiving floor. Patient care transfered to MT ROMEO. NOTE: Addendum: 08/10/19 at 2101 by Brian Mesa RN pt belongings sent with 2 rosary and clothing, meds and chart
--- NOTE | 2019-08-10 20:44 | NUR ---
RT NOTIFIED OF BIPAP AND PERCUSSION MACHINE STILL IN ROOM.
--- NOTE | 2019-08-10 20:50 | NUR ---
ICU patient trans to floor MADIE ANG transferred to room 274B via wheelchair on campus monitor #[id number]. All patient medications and personal belongings transferred with patient to receiving floor. Patient moderate assist from wheelchair to bed, generalized weakness noted. Patient Vietnamese speaking, alert to self. Speech is low and unclear at times. Patient hob remains in upright position. Patient is on room air with no respiratory s/s of distress noted. PICC line noted to right upper arm, triple lumen. Positive blood return noted, saline flushed. PICC line dressing is C/D/I, last changed 08/04/19. Jaundice noted. Patient with productive cough and thick cuello sputum per report. Per report patient had Nichole discontinued today and is due to void. Urinal provided to patient, with TOWER CLIMBER to translate instructed patient to call for assist with urinal and other needs. Bed alarm placed on, call light placed within patient's reach. Side rails up x2.
--- NOTE | 2019-08-10 20:55 | NUR ---
Fall precautions note Patient assessed and determined to be fall risk. Fall precautions in place, including side bed rails up X 2, bed alarms on, fall risk wristband in place. Patient instructed to call staff regarding any needs involving getting out of bed or bathroom needs.
[2019-08-10] MEDS: CARVEDILOL 3.125 MG TAB PO SCH (21:38)
--- NOTE | 2019-08-10 23:00 | NUR ---
SCD'S APPLIED TO PATIENT'S BLE.
--- NOTE | 2019-08-10 23:35 | NUR ---
INCONTINENT PATIENT INCONTINENT OF URINE, LARGE AMOUNT OF URINE NOTED ON INCONTINENCE PAD BENEATH PATIENT.
[2019-08-11] MEDS: IPRATROPIUM BROM 0.5 MG/2.5ML INH SOL NEB SCH ×5 (00:53→23:36)
[2019-08-11] MEDS: ACETYLCYSTEINE 10 %(100MG/ML) SOL 4ML NEB SCH ×5 (00:53→23:37)
[2019-08-11] MEDS: ALBUTEROL SULF 2.5 MG/0.5ML(0.5%) NEB SOLN NEB SCH ×5 (00:53→23:36)
[2019-08-11 05:00] VITALS: BP 94/61
[2019-08-11 06:31] LABS: Albumin 1.9 g/dL (3.4-5.0)
[2019-08-11 06:43] LABS: Bilirubin, Direct 22.3 mg/dL (0-0.2); Total Protein 7.1 g/dL (6.4-8.2)
--- NOTE | 2019-08-11 07:35 | NUR ---
Opening Shift Note Assumed care of patient, awake and alert to self in bed. No S/S of distress/SOB or pain. Pt has periods of confusion. RU PICC line inserted at 27cm, no s/s of pain or infiltration. Intact and patent. Flushed all 3 lumens with NS, no difficulty flushing. Fall precautions initiated, side rails up x2, fall band on, call light within reach, bed alarm on. Pt return demonstrated how to use call light. HOB elevated >30 degrees, suction available to use at bedside. Instructed on POC and to call for assist PRN, will continue to monitor for changes. Signed: 08/11/19 at 1139 by BRYAN BERNSTEIN SN <Co-Signature Required> Co-Signed: 08/11/19 at 1139 by Sulema Richardson RN
[2019-08-11 08:00] VITALS: BP 93/64
[2019-08-11] MEDS: Ensure Enlive Strawberry 8oz Bottle PO SCH ×3 (08:00→18:00)
[2019-08-11 09:00] VITALS: BP 93/64
[2019-08-11] MEDS: SODIUM CHLOR 0.9% PF (SALINE LOCK) 10ML VIAL/SYR IV SCH ×2 (10:00→21:33)
[2019-08-11] MEDS: ALLOPURINOL 100 MG TAB PO SCH (10:00)
[2019-08-11] MEDS ORDERED: FUROSEMIDE 40 MG TAB PO ONE (10:45)
[2019-08-11] MEDS ORDERED: POTASSIUM CHL 10 Meq TABLET PO ONE (10:45)
[2019-08-11] MEDS: ASPirin-EC 81 mg tab PO SCH (10:56)
[2019-08-11] MEDS: PANTOPRAZOLE 40 MG TAB PO SCH (10:56)
[2019-08-11] MEDS: CARVEDILOL 3.125 MG TAB PO SCH ×2 (10:58→21:35)
[2019-08-11] MEDS: CEFEPIME 1 GM in SODIUM CHL 0.9% 50 ML IV SCH ×2 (11:02→21:33)
[2019-08-11 12:42] VITALS: BP 100/59
--- NOTE | 2019-08-11 13:05 | NUR ---
CARDIOLOGY AT BEDSIDE DR VELÁSQUEZ AT BEDSIDE, DISCUSSING POC WITH PT, PT MD KANIKA WILL RECOMMEND ZOLL VEST, CONT CARE
--- NOTE | 2019-08-11 16:03 | NUR ---
srinathl [facility] paperwork faxed to [employer]
--- NOTE | 2019-08-11 16:16 | NUR ---
Discharge planning per consult, patient has orders for a walker. Referral sent to [facility]. Placed a follow up call, spoke to Gisselle and was advised that once the fax is received, then Nacho will assign a DME vendor, and to call back for the assigned vendor. Fax confirmation received at 4:23pm. Addendum: 08/11/19 at 1625 by CRISTIAN OSMAN Amended: Links added.
--- NOTE | 2019-08-11 17:10 | NUR ---
ACTIVITY PT REQUESTING TO AMBULATE TO BATHROOM, ASSISTED PATIENT USING FWW, PATIENT WAS ABLE TO STEP FORWARD 3-5 STEPS BEFORE C/O FEELING TIRED, AND PT THEN REQUESTING TO SIT DOWN, WITH THE ASSISTANCE WITH AN AIDE, USED WHEELCHAIR, TRANSFERRED PATIENT TO TOILET AND BACK TO BED, PATIENT REPOSITIONED, BED ALARM ACTIVATED AND CALL LIGHT WITHIN REACH
[2019-08-11 17:38] VITALS: BP 93/64
--- NOTE | 2019-08-11 18:30 | NUR ---
ROUNDS PT CURRENTLY SITTING UP IN BED, ON RA, NO DISTRESS NOTED, NO C/O PAIN, FAMILY AT BEDSIDE, BED ALARM ON AND CALL LIGHT WITHIN REACH
[2019-08-11] MEDS: SACUBITRIL-VALSARTAN 24mg/26mg TAB PO SCH (21:34)
[2019-08-11 22:28] VITALS: BP 94/66
--- NOTE | 2019-08-12 00:30 | NUR ---
HOSPITALIST GAVE NEW ORDERS, READ BACK, AND VERIFIED. Addendum: 08/13/19 at 0107 by SUNITA EM RN RN WRONG TIME
--- NOTE | 2019-08-12 01:30 | NUR ---
ACTIVITY PATIENT SETS OFF BED ALARM. UPON ENTERING ROOM PATIENT IS SITTING UP AT THE EDGE OF THE BED. PATIENT IS REQUESTING TO AMBULATE TO BATHROOM, PATIENT IS POINTING AT WALKER AT THE BEDSIDE. ATTEMPTED TO ASSIST PATIENT TO STAND WITH WALKER. PATIENT IS OBSERVED TO BE UNSTEADY AND MODERATE WEAKNESS IS NOTED TO BLE. PATIENT IS THAN ASSISTED TO SIT BACK DOWN IN BED FOR HIS SAFETY. ASSISTED PATIENT TO USE BEDPAN IN BED. PATIENT VOIDED IN BEDPAN. BED ALARM PLACED ON AND CALL LIGHT WITHIN REACH
[2019-08-12 05:03] VITALS: BP 98/62
[2019-08-12] MEDS: IPRATROPIUM BROM 0.5 MG/2.5ML INH SOL NEB SCH ×3 (06:01→18:49)
[2019-08-12] MEDS: ALBUTEROL SULF 2.5 MG/0.5ML(0.5%) NEB SOLN NEB SCH ×3 (06:01→18:49)
[2019-08-12] MEDS: ACETYLCYSTEINE 10 %(100MG/ML) SOL 4ML NEB SCH ×3 (06:01→18:49)
--- NOTE | 2019-08-12 06:50 | NUR ---
CLOSING NOTE PATIENT RESTING IN BED WITH NO S/S OF DISTRESS NOTED. BED ALARM IS ON AND CALL LIGHT WITHIN REACH. SCD'S REMAIN IN PLACE TO BLE.
--- NOTE | 2019-08-12 07:30 | NUR ---
Opening Shift Note Assumed care of patient, awake and alert to self and situation. No S/S of distress/SOB or pain. Instructed on POC and to call for assist PRN, will continue to monitor. Bed locked in the lowest position. Bed rails up x2. Call light in reach.
[2019-08-12] MEDS: Ensure Enlive Strawberry 8oz Bottle PO SCH ×3 (08:00→18:00)
[2019-08-12 09:00] VITALS: BP 101/75
[2019-08-12] MEDS: CEFEPIME 1 GM in SODIUM CHL 0.9% 50 ML IV SCH ×2 (09:41→22:00)
[2019-08-12] MEDS: FUROSEMIDE 20 MG TAB PO SCH (09:42)
[2019-08-12] MEDS: SACUBITRIL-VALSARTAN 24mg/26mg TAB PO SCH ×2 (09:43→22:00)
[2019-08-12] MEDS: PANTOPRAZOLE 40 MG TAB PO SCH (09:43)
[2019-08-12] MEDS: SODIUM CHLOR 0.9% PF (SALINE LOCK) 10ML VIAL/SYR IV SCH ×2 (09:44→22:07)
[2019-08-12] MEDS: CARVEDILOL 3.125 MG TAB PO SCH ×2 (09:44→22:00)
[2019-08-12] MEDS: ALLOPURINOL 100 MG TAB PO SCH (09:44)
[2019-08-12] MEDS: ASPirin-EC 81 mg tab PO SCH (09:44)
[2019-08-12 13:00] VITALS: BP 87/45
--- NOTE | 2019-08-12 13:54 | NUR ---
Nutrition Follow-Up Notes Wt. 58.9 kg as of yesterday. Pt's asleep, no immediate family members at bedside , no signs of distress noted during rounds this morning. Pt's off from PN support, had swallow eval, currently on Pureed diet with Ensure Enlive 1 carton TID, has inadequate PO intake aeb 25% ave. consumed meals (x) since yesterday d/t pt refused, per nursing. Noted pt's to receive tonight another TPN at same rate and nutrient concentration. Estimated needs recalculated based on CBW (55.9 kg)- 1650 kcal 1950 kcal (30-35 kcal/kgBW), 67 to 101 g protein (1.2-1.8 g/kg BW). Will continue to monitor pertinent labs and reassess nutrient need prn Labs: Tot manuel 26.0 H, Dir manuel 22.3 H, AST 288 H, ALT 182 H, ALP 298 H; Alb 1.9 L; Prealb 10.9 L, Trig 222 H Skin: Alex 16, mod risk, pt's L ear scab, jaundiced per RN doc. Pls refer to latest electric switch tester's notes for further details re: tx plans. GI: Pt's no bowel activity since 07/15/19 per RN documentations. Noted pt's on Lactulose PES: Altered nutrition related lab values r/t hepatic dysfunction and acute/chronic medical conditions aeb severely elev LFT's, hypoalb Partially resolved: Increased nutrient needs r/t current medical condition aeb intubated, sedated, severe hypoalbuminemia, NPO with PN support. Will continue to monitor PO intake, pertinent labs, skin status and weight trends. F/u in 3 to 5 days. Additional Recommendation: 1.) Consider Pureed Low Fat diet. 2.) Continue close supervision and feeding assistance prn during meals. 3.) If Albumin continues trending down, consider Prostat 1 pkt BID. 4.) If pt's PO intake remains inadequate (<75%), consider alternate nutrition support if medically appropriate. 5.) Refer to RD for further nutrition educ. and weight monitoring upon discharge. 6.) Continue current plan of care.
--- NOTE | 2019-08-12 14:56 | NUR ---
SS ORDER: I faxed to Emma at [facility] [phone] ph [phone] order for snf. She will have her clinical quality manager PT justine and will let us know if pt okay to transfer into network so pt can eventually go to snf
--- NOTE | 2019-08-12 15:17 | NUR ---
I called Emma and informed her of the fax I just sent. She stated she will have mortgage processing manager and try to get back today and if not today, then tomorrow
--- NOTE | 2019-08-12 16:00 | NUR ---
Discharge planning per consult, patient received an order for SNF placement. Referral faxed to Nacho ([phone]) at [facility] and he advised that he or the CM will review and send to some appropriate facilities, and to follow up tomorrow 08.13.19 to see if any has accepted. Addendum: 08/12/19 at 1603 by CRISTIAN OSMAN Amended: Links added.
[2019-08-12 17:00] VITALS: BP_SYST 67; BP_SYST 74; BP_DIAS 36; BP_DIAS 37
--- NOTE | 2019-08-12 17:00 | NUR ---
MD AWARE DR. JACKMAN AWARE OF PATIENTS 1700 VITAL SIGNS AND BP OF 74/36. PER MD, FOLLOW COMMUNICATION ORDER PARAMETERS FOR MEDICATION ADMINISTRATION. NO NEW ORDERS RECEIVED.
--- NOTE | 2019-08-12 18:02 | NUR ---
WOUND CARE NOTE: Wound care in to see patient for reevaluation of wounds and skin integrity monitoring. Patient has been extubated and now in [place] [facility]/telemetry unit. Patient is resting in bed in Rm. 274B. Patient is awake, alert and able to verbalize needs. Patient is in no stated pain at this time and he appears to be in no pain using Duran Castañeda Faces Pain Scale. His Alex sore is 16. Skin assessment done with the assistance of patient's nurse AGUEDA Girard. Scabs to his bilateral ear pinna remain clean and dry, smaller (0.5x0.2cm) with pink surrounding skin; area is clean and dry, left open to air. Patient's sacrum and bilateral buttocks remain intact with brown pigmented, blanchable skin. He continue receiving BID/PRN cleaning and application of Z Guard cream to sacral/buttocks as preventative. Photograph of mentioned resolving skin issue are taken for reference. Patient tolerated well. AGUEDA Girard at bedside. RECOMMENDATIONS: Continuation of all other wound care orders prescribed by MD,continue with skin/wound plan of care, continue monitoring by wound care while patient's Alex score is 16 and below. Addendum: 08/12/19 at 1858 by Bee Pablo RN Amended: Links added.
--- NOTE | 2019-08-12 18:07 | NUR ---
PICC LINE DRESSING CHANGED USING STERILE TECHNIQUE. PATIENT TOLERATED WELL.
--- NOTE | 2019-08-12 18:42 | NUR ---
CLOSING NOTE Patient is awake and alert to self and situation. No S/S of distress/SOB or pain. Bed locked in the lowest position. Bed rails up x2. Call light in reach. Daughter Sulema at the bedside. Will endorse care to night RN.
--- NOTE | 2019-08-12 19:20 | NUR ---
Opening Shift Note Report received from day shift RN. Assumed care of patient. Patient sitting in bed awake and alert to self, location, and situation. No S/S of distress/SOB noted and patient denies pain at this time. Family at bedside. SCDs on lower extremities bilaterally. Bed locked in the lowest position, bed rails up x2 and call light in reach. Instructed on POC and to call for assist PRN, will continue to monitor.
--- NOTE | 2019-08-12 21:25 | NUR ---
LOW BP PATIENT'S BP 63/37, HR 60s, RR 18, O2 SATURATION 100% ON RA. HOSPITALIST KAYLIN. AWAITING CALL BACK Addendum: 08/13/19 at 0214 by SUNITA EM RN RN PATIENT DENIES ANY CHEST PAIN, DIZZINESS, OR SOB. STATES HE FEELS OKAY.
[2019-08-12] MEDS ORDERED: ALBUMIN 5% 250 ML IV ONE (21:30)
--- NOTE | 2019-08-12 21:35 | NUR ---
HOSPITALIST CALLED BACK NEW ORDERS RECEIVED, READ BACK, AND VERIFIED.
[2019-08-12 22:00] VITALS: BP 63/37
--- NOTE | 2019-08-12 22:35 | NUR ---
BP REASSESSMENT PATIENT'S BLOOD PRESSURE CONTINUES TO REMAIN 60s SYSTOLIC. HOSPITALIST PAGED. AWAITING CALL BACK
[2019-08-13] VITALS (79 sets, daily range): BP systolic 63–108; BP diastolic 25–65
[2019-08-13] MEDS: IPRATROPIUM BROM 0.5 MG/2.5ML INH SOL NEB SCH ×5 (00:13→23:58)
[2019-08-13] MEDS: ACETYLCYSTEINE 10 %(100MG/ML) SOL 4ML NEB SCH ×5 (00:14→23:59)
[2019-08-13] MEDS: ALBUTEROL SULF 2.5 MG/0.5ML(0.5%) NEB SOLN NEB SCH ×5 (00:14→23:58)
--- NOTE | 2019-08-13 00:30 | NUR ---
HOSPITALIST GAVE NEW ORDERS, READ BACK, AND VERIFIED.
[2019-08-13] MEDS ORDERED: NOREPINEPHRINE 8 MG/250ML KIT 250 ML IV SCH (00:45)
[2019-08-13] MEDS ORDERED: NOREPINEPHRINE 8 MG/250ML KIT 250 ML IV ONE (01:01)
--- NOTE | 2019-08-13 01:45 | NUR ---
PATIENT TRANSFERRED TO ICU. REPORT GIVEN TO JOSE LUIS WATCH AND CLOCK REPAIRER. NO SOB/ DISTRESS NOTED. PATIENT DENIES PAIN. ALL PATIENT'S BELONGINGS ACCOUNTED FOR AND TRANSPORTED WITH PATIENT.
--- NOTE | 2019-08-13 01:48 | NUR ---
RECEIVED PATIENT FROM THE TELEMETRY FLOOR
--- NOTE | 2019-08-13 02:00 | NUR ---
OPEN NOTES Patient was transferred due to low BP - to start IV Levophed drip. Initial VS taken : HR 64/min, BP 70/38mmHg, RR 17, SPO2 97% on room air, Temp 97.7F Patient is awake and alert. Able to oriented to person and place. Patient is jaundiced, with poor appetite according to the whitlock RN. Patient hadn't urinated yet - will do bladder scanner Right upper arm PICC line inserted 08/04, dressing dry and intact. All port flushed, backflow noted. CVP monitoring connected, line levelled and zeroed. CVP 0-1
--- NOTE | 2019-08-13 02:00 | NUR ---
LEVOPHED FOR LOW BP STARTED IV LEVOPHED TITRATED TO KEEP SBP>90 AND MAP >65MMHG SEE IV SPREADSHEET
[2019-08-13] MEDS: NOREPINEPHRINE 8 MG/250ML KIT 250 ML IV SCH ×3 (02:09→20:31)
--- NOTE | 2019-08-13 02:22 | NUR ---
HOSPITALIST PAGED HOSPITALIST PAGED FOR LOW CVP AND LOW URINE OUTPUT
--- NOTE | 2019-08-13 02:56 | NUR ---
HOSPITALIST CALLED BACK Talked to ROYER Knight Informed him CVP 0-1, lung sounds clear diminished, bladder scanner 380-400mls and patient does not have urge of urinating yet Telephone order received: 1. give 1/2 L of NS and wean down Levophed 2. No Nichole catheter yet -wait until patient has the urge
[2019-08-13] MEDS ORDERED: SODIUM CHLORIDE 0.9% 500 ML IV ONE (03:00)
--- NOTE | 2019-08-13 04:25 | NUR ---
RUN OF VT PATIENT HAD A RUN OF VT X 12 COMPLEXES WILL DRAW LABS FOR ELECTROLYTES STRIP PRINT OUT IN CHART
[2019-08-13 04:43] LABS: Eosinophils # (auto) 0.6 uL; Hemoglobin 12.7 g/dL (13.5-17.5); Lymphocytes # (auto) 1.9 uL
[2019-08-13 04:45] LABS: Basophils # (auto) 0.1 uL; Basophils % (auto) 1.4 % (0.0-2.0); Eosinophils % (auto) 6.4 % (0.0-7.0); Hematocrit 36.5 % (41.0-53.0); Mean Corpuscular Hemoglobin 32.3 pg (28.0-32.0); Mean Corpuscular Hgb Conc. 34.7 g/dL (32.0-36.0); Mean Corpuscular Volume 93.2 fL (80.0-100.0); Monocytes # (auto) 1.1 uL; Monocytes % (auto) 10.8 % (0.0-12.0); Neutrophils # (auto) 6.3 uL; Neutrophils % (auto) 62.4 % (37.0-80.0); Nucleated Red Blood Cells % 0.2 %; Platelet Count (auto) 503 10^3/uL (140-450); Red Blood Cells 3.92 10^6/uL (4.5-5.90)
[2019-08-13 04:47] LABS: Red Cell Distribution Width 21.4 % (11.8-14.3)
[2019-08-13 04:58] LABS: Albumin 2.1 g/dL (3.4-5.0); BUN/Creatinine Ratio 25.1; Calcium 8.4 mg/dL (8.5-10.1); Magnesium 2.1 mg/dL (1.6-2.6)
[2019-08-13 05:04] LABS: Potassium 2.9 mmol/L (3.5-5.1)
--- NOTE | 2019-08-13 05:06 | NUR ---
ORAL CARE DONE
--- NOTE | 2019-08-13 05:08 | NUR ---
PAGED HOSPITALIST FOR CRITICAL POTASSIUM LEVEL
[2019-08-13 05:10] LABS: Bilirubin, Total 25.1 mg/dL (0.2-1.0); Total Protein 7.1 g/dL (6.4-8.2)
--- NOTE | 2019-08-13 05:30 | NUR ---
RE-ASSESSMENT PATIENT IS TALKING MORE NOW. STILL CONFUSED. RE-ORIENTED TO TIME, PLACE AND SITUATION BP BETTER SBP 90 MMHG - IV LEVOPHED AT 15MCG/MIN, CVP 2-3 PATIENT URINATED 350ML DARK LEO URINE
--- NOTE | 2019-08-13 05:53 | NUR ---
HOSPITALIST HASN'T CALLED BACK RE-PAGED
--- NOTE | 2019-08-13 06:12 | NUR ---
TRIED TO CALL PATIENT'S DAUGHTER ROHIT AT [phone] NO ANSWER,GOES TO VOICEMAIL WILL TRY AGAIN LATER
--- NOTE | 2019-08-13 06:16 | NUR ---
FAMILY FAMILY CALLED BACK. CORRECT PASSWORD OBTAINED. INFORMED HER OF REASON FOR TRANSFER AND UPDATE ON HIS CONDITION ALL QUESTION ANSWERED-VERBALIZED UNDERSTANDING
--- NOTE | 2019-08-13 06:36 | NUR ---
HOSPITALIST CALLED BACK INFORMED ROSS LIFT OPERATOR AIKEN OF : 1. POTASSIUM 2.9 2. CVP 2-3, BNP 234 ORDERS RECEIVED AND VERIFIED 1. NS 250ML BOLUS 2. POTASSIUM ORAL 40MEQ
[2019-08-13] MEDS ORDERED: POTASSIUM CHL 20 Meq TABLET PO ONE (06:45)
[2019-08-13] MEDS ORDERED: SODIUM CHLORIDE 0.9% 250 ML IV ONE (06:45)
--- NOTE | 2019-08-13 07:25 | NUR ---
REPORT REPORT GIVEN TO AGUEDA LOPEZ
--- NOTE | 2019-08-13 07:45 | NUR ---
ASSESS- PT. LYING IN BED AWAKE, ALERT TO SELF AND PLACE ONLY. DENIES ANY PAIN OR DISCOMFORT. LUNGS CLEAR TRAVIS. INSPIRATORY AND EXPIRATORY, DIMINISHED. NO SOB. ON R/A. O2 SATS 98%-99%. ABD. SOFT, FLAT, NON-TENDER. BOWEL SOUNDS ALL FOUR QUADRANTS. NO N/V. VOIDING VIA URINAL WITHOUT DIFFICULTY, CLEAR DK. LEO URINE. RADIAL PULSES STRONG, PALPABLE TRAVIS. DORSALIS PEDAL PULSES STRONG, PALPABLE TRAVIS. 1 PLUS NON-PITTING EDEMA FT./ANKLE TRAVIS. SCD'S TRAVIS. LE. LT. AND RT. EAR WITH SCAB OPEN TO AIR. PT. IS JAUNDICE. SCLERA JAUNDICE TRAVIS. PICC ANTHONY TLC INTACT WITH DSG. D/I WITH PICC CONNECTED FOR CVP MONITORING, READING 0-NEG. 1, ZEROED. ON LEVOPHED GTT. AT 15 MCG. SBP 90'S-100'S.
[2019-08-13] MEDS: Ensure Enlive Strawberry 8oz Bottle PO SCH (08:00)
[2019-08-13] MEDS: SODIUM CHLOR 0.9% PF (SALINE LOCK) 10ML VIAL/SYR IV SCH ×2 (09:38→21:30)
[2019-08-13] MEDS: FUROSEMIDE 20 MG TAB PO SCH (09:38)
[2019-08-13] MEDS: ASPirin-EC 81 mg tab PO SCH (09:38)
[2019-08-13] MEDS: PANTOPRAZOLE 40 MG TAB PO SCH (09:38)
[2019-08-13] MEDS: CEFEPIME 1 GM in SODIUM CHL 0.9% 50 ML IV SCH ×2 (09:38→21:31)
--- NOTE | 2019-08-13 10:00 | NUR ---
PT. RESTING IN BED. NO SIGNS OF DISTRESS OR DISCOMFORT.
--- NOTE | 2019-08-13 11:00 | NUR ---
Family updated on pt status Family of SAVMADIE updated on patient's status and condition. All questions and concerns addressed. DAUGHTER verbalized understanding. VISITING AT THE BS.
[2019-08-13 12:12] LABS: Calcium 9.1 mg/dL (8.5-10.1)
--- NOTE | 2019-08-13 12:25 | NUR ---
DR. JACKMAN Provider/Hospitalist at bedside. GAVE UPDATE ON PT. NEW ORDERS RECEIVED.
--- NOTE | 2019-08-13 13:30 | NUR ---
TITRATING LEVOPHED GTT. DOWN SLOWLY TO KEEP MAP >[address] JACKMAN. MAP HAS BEEN IN THE MID 60'S TO LOW 70'S. MONITORING BP.
--- NOTE | 2019-08-13 13:57 | NUR ---
Called/paged Dr. JACKMAN called re: . Waiting for call back. Continue care.
--- NOTE | 2019-08-13 14:03 | NUR ---
returned call Dr. JACKMAN returned call, updated on patient status and reason for call, orders received. Continue care.
[2019-08-13] MEDS: POTASSIUM CHL 20MEQ/100ML 100 ML IV SCH ×2 (14:11→15:48)
--- NOTE | 2019-08-13 16:00 | NUR ---
PT. HAD LG. WATERY BROWN/YELLOW STOOL. KULWANT CARE DONE AND LINENS CHANGED.
--- NOTE | 2019-08-13 17:15 | NUR ---
MAP DECREASED TO 57-59. TITRATING LEVOPHED GTT. UP TO KEEP MAP >[address] JACKMAN. CONTINUING TO MONITOR BP.
--- NOTE | 2019-08-13 18:15 | NUR ---
DAUGHTER VISITING AT THE .
[2019-08-14] VITALS (89 sets, daily range): BP systolic 72–109; BP diastolic 42–65
[2019-08-14 04:21] LABS: Eosinophils # (auto) 0.6 uL; Hemoglobin 14.2 g/dL (13.5-17.5); Lymphocytes # (auto) 2.8 uL
[2019-08-14 04:23] LABS: Basophils # (auto) 0.1 uL; Basophils % (auto) 1.4 % (0.0-2.0); Eosinophils % (auto) 6.1 % (0.0-7.0); Hematocrit 40.7 % (41.0-53.0); Lymphocytes % (auto) 29.2 % (10.0-50.0); Mean Corpuscular Hemoglobin 32.9 pg (28.0-32.0); Mean Corpuscular Hgb Conc. 34.9 g/dL (32.0-36.0); Mean Corpuscular Volume 94.2 fL (80.0-100.0); Neutrophils % (auto) 52.3 % (37.0-80.0); Nucleated Red Blood Cells % 0.2 %; Platelet Count (auto) 551 10^3/uL (140-450); Red Blood Cells 4.32 10^6/uL (4.5-5.90); White Blood Cell 9.5 10^3/uL (4.4-10.8)
[2019-08-14 04:31] LABS: Red Cell Distribution Width 21.7 % (11.8-14.3)
[2019-08-14 04:33] LABS: Albumin 2.1 g/dL (3.4-5.0); Potassium 3.9 mmol/L (3.5-5.1)
[2019-08-14 04:45] LABS: BUN/Creatinine Ratio 21.1; Bilirubin, Total 25.6 mg/dL (0.2-1.0); Total Protein 7.6 g/dL (6.4-8.2)
[2019-08-14] MEDS: NOREPINEPHRINE 8 MG/250ML KIT 250 ML IV SCH ×2 (05:40→17:07)
[2019-08-14] MEDS: ALBUTEROL SULF 2.5 MG/0.5ML(0.5%) NEB SOLN NEB SCH ×3 (05:56→19:00)
[2019-08-14] MEDS: IPRATROPIUM BROM 0.5 MG/2.5ML INH SOL NEB SCH ×3 (05:56→19:00)
[2019-08-14] MEDS: ACETYLCYSTEINE 10 %(100MG/ML) SOL 4ML NEB SCH ×3 (05:56→19:00)
--- NOTE | 2019-08-14 07:10 | NUR ---
OPENING NOTE SHIFT REPORT RECEIVED AND ASSUMED CARE OF PT FROM CATE ROMEO
[2019-08-14] MEDS: CEFEPIME 1 GM in SODIUM CHL 0.9% 50 ML IV SCH (10:00)
[2019-08-14] MEDS ORDERED: MAGNESIUM OXIDE 400 MG TAB PO ONE (10:30)
--- NOTE | 2019-08-14 10:40 | NUR ---
DR. JACKMAN AT BEDSIDE ORDERS RECEIVED
[2019-08-14] MEDS: ASPirin-EC 81 mg tab PO SCH (10:41)
[2019-08-14] MEDS: PANTOPRAZOLE 40 MG TAB PO SCH (10:42)
[2019-08-14] MEDS: SODIUM CHLOR 0.9% PF (SALINE LOCK) 10ML VIAL/SYR IV SCH ×2 (10:43→22:00)
--- NOTE | 2019-08-14 12:45 | NUR ---
ZOLL VINYL WELDER AND FABRICATOR AT BEDSIDE
--- NOTE | 2019-08-14 19:07 | NUR ---
OPENING SHIFT RECEIVED REPORT FROM DAY SHIFT RN. ASSUMED CARE OF PATIENT. PATIENT IN BED WATCHING TV, FAMILY AT BEDSIDE, WITH NO SIGNS OR SYMPTOMS OF SOB, PAIN OR DISTRESS. CURRENTLY ON ROOM AIR, 02 SAT - 97%. UPDATED PATIENT AND FAMILY ON PLAN OF CARE. ZOLL VEST IN PLACE, SHUTTLE VAN DRIVER AND ZOLL HOTSPOT AT BEDSIDE. RIGHT UPPER ARM PICC X3 - CLEAN/DRY/INTACT. REPOSITIONED FOR COMFORT. BED IN LOWEST POSITION, SIDE RAILS UP X2, CALL LIGHT WITHIN REACH. WILL CONTINUE TO MONITOR.
--- NOTE | 2019-08-14 19:10 | NUR ---
CLOSING NOTE SHIFT REPORT GIVEN AND CARE ENDORSED TO PEDRO GUZMAN RN
--- NOTE | 2019-08-14 22:30 | NUR ---
TRANSFERRED PATIENT TO ROOM 264.
[2019-08-14] MEDS: MAGNESIUM OXIDE 400 MG TAB PO SCH (22:57)
[2019-08-15] VITALS (85 sets, daily range): BP systolic 77–107; BP diastolic 38–64
[2019-08-15] MEDS: ACETYLCYSTEINE 10 %(100MG/ML) SOL 4ML NEB SCH ×5 (00:13→23:36)
[2019-08-15] MEDS: ALBUTEROL SULF 2.5 MG/0.5ML(0.5%) NEB SOLN NEB SCH ×5 (00:14→23:36)
[2019-08-15] MEDS: IPRATROPIUM BROM 0.5 MG/2.5ML INH SOL NEB SCH ×5 (00:14→23:36)
--- NOTE | 2019-08-15 02:34 | NUR ---
MORNING CARE PERFORMED MORNING CARE WITH CHG WIPES AND WASH CLOTHS TO THE FACE. PARTIAL LINEN CHANGE AND GOWN CHANGED. SKIN REASSESSED AT THIS TIME. REPOSITIONED FOR COMFORT. BED IN LOWEST POSITION, SIDE RAILS UP X2, CALL LIGHT WITHIN REACH. WILL CONTINUE TO MONITOR. Addendum: 08/16/19 at 0350 by NYA CROCKER RN RN TIME: 08/16/19 0234
--- NOTE | 2019-08-15 04:25 | NUR ---
MORNING CARE PERFORMED MORNING CARE WITH CHG WIPES AND WASH CLOTHS TO THE FACE. PARTIAL LINEN CHANGE AND GOWN CHANGED. REPOSITIONED FOR COMFORT. BED IN LOWEST POSITION, SIDE RAILS X2, CALL LIGHT WITHIN REACH. WILL CONTINUE TO MONITOR.
[2019-08-15] MEDS: NOREPINEPHRINE 8 MG/250ML KIT 250 ML IV SCH ×2 (06:48→17:44)
--- NOTE | 2019-08-15 07:10 | NUR ---
END OF SHIFT REPORT GIVEN TO DAY SHIFT RN.
--- NOTE | 2019-08-15 07:45 | NUR ---
Opening Shift Note Assumed care of patient, awake and alert. Patient primary Serbian speaking but able to communicate in American. No S/S of distress/SOB or pain. Levophed running at 10mcg/min, BP 86/49, increased Levophed to 11mcg/min. Patient on life vest. Bed locked on low position, side rails up x2, bed alarms on at all times, call coley within reach, instructed on POC and to call for assist PRN, will continue to monitor for changes Q1hr and PRN.
--- NOTE | 2019-08-15 08:30 | NUR ---
Patient refused to eat breakfast because he prefers to eat food from home.
--- NOTE | 2019-08-15 10:30 | NUR ---
Patient's daughter Sulema at bedside, updated on patient's status and POC, daughter verbalized understanding. All questions and concerns addressed.
[2019-08-15] MEDS: PANTOPRAZOLE 40 MG TAB PO SCH (10:52)
[2019-08-15] MEDS: MAGNESIUM OXIDE 400 MG TAB PO SCH ×2 (10:52→22:13)
[2019-08-15] MEDS: SODIUM CHLOR 0.9% PF (SALINE LOCK) 10ML VIAL/SYR IV SCH ×2 (10:52→22:13)
[2019-08-15] MEDS: ASPirin-EC 81 mg tab PO SCH (10:52)
--- NOTE | 2019-08-15 12:17 | NUR ---
Dr Noel at bedside, updated on patient's status. Patient seen and examined. Will carry out new orders.
--- NOTE | 2019-08-15 13:25 | NUR ---
Patient out of bed to beside commode with Beryl PT, fall precautions in placed. Patient tolerated well.
--- NOTE | 2019-08-15 13:49 | NUR ---
Nutrition Follow-Up Notes Wt. 58.2 kg Pt's asleep, no immediate family members at bedside , no signs of distress noted during rounds this morning. Pt's off from PN support, currently on regular diet with inadequate PO of < 50% x 2 days per RN doc Estimated needs recalculated based on CBW (55.9 kg)- 1650 kcal 1950 kcal (30-35 kcal/kgBW), 67 to 101 g protein (1.2-1.8 g/kg BW). Will continue to monitor pertinent labs and reassess nutrient need prn Labs: BUN 27 H, GLU 121 H, TRAVIS 25.6 H, BOBY/LT 242/175 H, ALB 2.1 L. Skin: Alex 13, mod risk, pt's L ear scab, jaundiced per RN doc. Pls refer to latest scrum master's notes for further details re: tx plans. GI: Pt had 1 BM yesterday per RN doc PES: Altered nutrition related lab values r/t hepatic dysfunction and acute/chronic medical conditions aeb severely elev LFT's, hypoalb Partially resolved: Increased nutrient needs r/t current medical condition aeb intubated, sedated, severe hypoalbuminemia, NPO with PN support. Will continue to monitor PO intake, pertinent labs, skin status and weight trends. F/u in 3 to 5 days. Additional Recommendation: 1.) Consider Low Fat diet. 2.) Continue close supervision and feeding assistance prn during meals. 3.) If Albumin continues trending down, consider Prostat 1 pkt BID. 4.) If pt's PO intake remains inadequate (<75%), consider alternate nutrition support if medically appropriate. 5.) Refer to RD for further nutrition educ. and weight monitoring upon discharge. 6.) Continue current plan of care.
--- NOTE | 2019-08-15 15:01 | NUR ---
Respiratory note: PT REFUSING CPT WITH MEDNEB TREATMENTS..
--- NOTE | 2019-08-15 18:09 | NUR ---
RT NOTE: CPT REFUSED. WILL CONTINUE TO MONITOR.
--- NOTE | 2019-08-15 19:14 | NUR ---
OPENING SHIFT RECEIVED REPORT FROM DAY SHIFT RN. ASSUMED CARE OF PATIENT. PATIENT IN BED WATCHING TV WITH NO SIGNS OR SYMPTOMS OF SOB, PAIN OR DISTRESS. CURRENTLY ON ROOM AIR, 02 SAT - 100%. RIGHT UPPER PICC X3 - CLEAN/DRY/INTACT. ZOLL VEST IN PLACE, HOT SPOT AND EXTRA BATTERY AT BEDSIDE. REPOSITIONED FOR COMFORT. BED IN LOWEST POSITION, SIDE RAILS UP X2, CALL LIGHT WITHIN REACH.
--- NOTE | 2019-08-15 23:36 | NUR ---
Respiratory note: PATIENT REFUSED CPT, PT STATED HE CHEST WAS HURTING AND DID NOT WANT IT DONE AT THIS TIME.
[2019-08-16] VITALS (83 sets, daily range): BP systolic 77–110; BP diastolic 37–73
--- NOTE | 2019-08-16 01:14 | NUR ---
ROUNDS PATIENT IN BED SLEEPING WITH NO SIGNS OF SOB, PAIN OR DISTRESS. WILL CONTINUE TO MONITOR.
[2019-08-16] MEDS: NOREPINEPHRINE 8 MG/250ML KIT 250 ML IV SCH ×2 (03:32→15:12)
[2019-08-16] MEDS: ALBUTEROL SULF 2.5 MG/0.5ML(0.5%) NEB SOLN NEB SCH ×4 (06:22→23:51)
[2019-08-16] MEDS: ACETYLCYSTEINE 10 %(100MG/ML) SOL 4ML NEB SCH ×4 (06:22→23:51)
[2019-08-16] MEDS: IPRATROPIUM BROM 0.5 MG/2.5ML INH SOL NEB SCH ×4 (06:22→23:51)
--- NOTE | 2019-08-16 06:25 | NUR ---
PT. REFUSED CPT THIS AM, STATES THAT IT HURTS HIS CHEST, CPT. HELD AT THIS TIME.
--- NOTE | 2019-08-16 07:01 | NUR ---
END OF SHIFT REPORT GIVEN TO DAY SHIFT RN.
--- NOTE | 2019-08-16 07:30 | NUR ---
RECEIVED PATIENT SITTING UP IN THE BED, A/O TIMES 4, O2 BY R/A, DENIES PAIN, STATES HE IS ABLE TO GET UP TO THE BSC WITH HELP AND HE USES THE URINAL, PICC LINE TO THE ANTHONY WITH NOREPINEPHRINE INFUSING AT 20.15ML/HR, OR 10.75MCG BY THE IV PUMP, KAZAKH SPEAKING BUT UNDERSTANDS SOME MACEDONIAN
--- NOTE | 2019-08-16 08:30 | NUR ---
REFUSED TO EAT HIS BREAKFAST
--- NOTE | 2019-08-16 09:24 | NUR ---
UP WALKING IN THE UNIT WITH PT USING THE WALKER AND THEN GOTTEN INTO THE CHAIR PATIENT HAVING MINIMAL ASSISTANCE PER PT
--- NOTE | 2019-08-16 10:30 | NUR ---
DISCUSSED MEDICATIONS WITH THE PATIENT REGARDING THE DOSAGE USAGE AND THE SIDE EFFECTS, VERBALIZED THAT HE UNDERSTOOD AND MEDS GIVEN ORDERED
[2019-08-16] MEDS: ASPirin-EC 81 mg tab PO SCH (10:40)
[2019-08-16] MEDS: MAGNESIUM OXIDE 400 MG TAB PO SCH ×2 (10:41→21:16)
[2019-08-16] MEDS: PANTOPRAZOLE 40 MG TAB PO SCH (10:41)
[2019-08-16] MEDS: SODIUM CHLOR 0.9% PF (SALINE LOCK) 10ML VIAL/SYR IV SCH ×2 (10:42→22:18)
--- NOTE | 2019-08-16 10:57 | NUR ---
SITTING UP IN THE CHAIR STATES HE IS DOING OKAY
--- NOTE | 2019-08-16 11:01 | NUR ---
STATES HE WANTS TO WALK AGAIN THIS AFTERNOON, MADE PT AWARE
--- NOTE | 2019-08-16 11:25 | NUR ---
GOTTEN BACK INTO THE BED BY PT
--- NOTE | 2019-08-16 11:26 | NUR ---
DR THOMAS IN TO SEE THE PATIENT
--- NOTE | 2019-08-16 11:34 | NUR ---
NO NEW ORDERS
--- NOTE | 2019-08-16 12:18 | NUR ---
LYING IN BED WATCHING TV, STATES HE IS DOING OKAY NO COMPLAINTS
--- NOTE | 2019-08-16 13:49 | NUR ---
FAMILY IN VISITING WITH THE PATIENT AND BROUGHT HIM FOOD TO EAT,
--- NOTE | 2019-08-16 14:19 | NUR ---
ATE A LITTLE BIT OF THE FOOD THEY BROUGHT HIM
--- NOTE | 2019-08-16 14:40 | NUR ---
FAMILY LEFT AND PATIENT WATCHING FOOTBALL ON TV,
--- NOTE | 2019-08-16 15:38 | NUR ---
B/P AT 85/43 INCREASED THE NOREPINEPHRINE TO 12.75MCG/KG.MIN
--- NOTE | 2019-08-16 16:00 | NUR ---
LYING IN IN BED WATCHING TV, STATES HE IS DOING OKAY B/P 88/47, CONTINUE TO MONITOR
--- NOTE | 2019-08-16 16:30 | NUR ---
B/P RECHECKED, , CONDITION REMAINS THE SAME WATCHING TV,
--- NOTE | 2019-08-16 17:00 | NUR ---
B/P 92/51, STILL WATCHING TV, STATES HE IS DOING OKAY
--- NOTE | 2019-08-16 17:15 | NUR ---
REPORT GIVEN TO NEVAEH ROMEO IN ICU, PATIENT GOING TO ROOM 111, STATES HE HAS ALL BELONGINGS
--- NOTE | 2019-08-16 17:25 | NUR ---
PATIENT MOVED TO ICU ROOM 111 BY THE BED STATES HE HAS ALL BELONGINGS
--- NOTE | 2019-08-16 17:39 | NUR ---
NOTIFIED DAUGHTER THAT PATIENT WAS MOVED TO ROOM 111 IN ICU
--- NOTE | 2019-08-16 17:49 | NUR ---
Admit to ICU from [facility]TE[facility] floor: MADIE ANG admitted to ICU via gurney on ekg monitor tech, and room air. Patient transfered to bed, connected to unit monitoriing, and weighed by bedscale. Patient oriented to Lisa addison RN, unit, room, bed, and unit policies regarding patient care and visiting hours. All questions and concerns addressed, patient verbalized understanding. NOTE: See Interventions.
--- NOTE | 2019-08-16 18:10 | NUR ---
Respiratory note: PT REFUSED CPT AT THIS TIME STATING HIS CHEST WAS HURTING. INSTRUCTED PT ON HOW TO DEEP COUGH AND SX WITH YAUNKER. PT UNDERSTOOD INSTRUCTION AND DEMONSTRATED WITH GOOD EFFORT.
--- NOTE | 2019-08-16 18:59 | NUR ---
Endorsed care to AGUEDA Crump.
--- NOTE | 2019-08-16 19:25 | NUR ---
OPENING SHIFT RECEIVED REPORT FROM DAY SHIFT RN. ASSUMED CARE OF PATIENT. PATIENT IN BED WATCHING TV, FAMILY AND ARMATURE BALANCER AT BEDSIDE, WITH NO SIGNS OR SYMPTOMS OF SOB, PAIN OR DISTRESS. CURRENTLY ON ROOM AIR, 02 SAT - 97%. ZOLL VEST IN PLACE, CHANNEL LIP STIFFENER INSOLES AND ZOLL HOTSPOT AT BEDSIDE. RIGHT UPPER ARM PICC X3 - CLEAN/DRY/INTACT. REPOSITIONED FOR COMFORT. BED IN LOWEST POSITION, SIDE RAILS UP X2, CALL LIGHT WITHIN REACH. WILL CONTINUE TO MONITOR.
--- NOTE | 2019-08-16 22:19 | NUR ---
ROUNDS PATIENT IN BED WATCHING TV. REPOSITIONED FOR COMFORT. NO SIGNS OR SYMPTOMS OF SOB, PAIN OR DISTRESS. BED IN LOWEST POSITION, SIDE RAILS UP X2, CALL LIGHT WITHIN REACH. WILL CONTINUE TO MONITOR.
[2019-08-17] VITALS (93 sets, daily range): BP systolic 74–107; BP diastolic 17–69
[2019-08-17] MEDS: NOREPINEPHRINE 8 MG/250ML KIT 250 ML IV SCH ×2 (02:18→13:59)
--- NOTE | 2019-08-17 04:37 | NUR ---
MORNING CARE PATIENT REFUSED MORNING CARE AT THIS TIME. STATES HE WANTS TO DO IT LATER. REPOSITIONED FOR COMFORT. FRESH LINEN LEFT AT BEDSIDE.
[2019-08-17] MEDS: IPRATROPIUM BROM 0.5 MG/2.5ML INH SOL NEB SCH ×3 (06:22→18:24)
[2019-08-17] MEDS: ALBUTEROL SULF 2.5 MG/0.5ML(0.5%) NEB SOLN NEB SCH ×3 (06:22→18:25)
[2019-08-17] MEDS: ACETYLCYSTEINE 10 %(100MG/ML) SOL 4ML NEB SCH ×3 (06:22→18:24)
--- NOTE | 2019-08-17 07:11 | NUR ---
END OF SHIFT REPORT GIVEN TO DAY SHIFT RN.
--- NOTE | 2019-08-17 07:45 | NUR ---
Opening Shift Note Assumed care of patient, awake and alert. Patient primary Singaporean speaking but able to communicate in Welsh. No S/S of distress/SOB or pain. Levophed at 12.5mcg/min via RT UA PICC, BP 100/57. See interventions for complete assessment. Bed locked on low position, side rails up x2, bed alarms on at all times, call coley within reach, instructed on POC and to call for assist PRN, will continue to monitor for changes Q1hr and PRN.
[2019-08-17] MEDS ORDERED: MIDODRINE HCL 10 MG TAB PO ONE (09:00)
[2019-08-17] MEDS: PANTOPRAZOLE 40 MG TAB PO SCH (09:34)
[2019-08-17] MEDS: SODIUM CHLOR 0.9% PF (SALINE LOCK) 10ML VIAL/SYR IV SCH ×2 (09:34→22:24)
[2019-08-17] MEDS: ASPirin-EC 81 mg tab PO SCH (09:34)
[2019-08-17] MEDS: MAGNESIUM OXIDE 400 MG TAB PO SCH ×2 (09:34→22:24)
--- NOTE | 2019-08-17 09:40 | NUR ---
Patient's daughter Sulema at bedside, updated on patient's status and POC, daughter verbalized understanding. All questions and concerns addressed.
--- NOTE | 2019-08-17 09:45 | NUR ---
Assisted patient to get out of bed to bedside commode with walker, fall precautions in placed. Patient tolerated well.
--- NOTE | 2019-08-17 10:10 | NUR ---
Dr Lowe at bedside, updated on patient's status. Patient seen and examined. Received verbal order to re-consult Dr Emery, check CMP, BNP and Bilirubin levels and to start patient on Florinef and Prednisone. Verbal orders read back and verified. Will carry out.
[2019-08-17] MEDS ORDERED: predniSONE 5 MG TAB PO ONE (10:30)
--- NOTE | 2019-08-17 11:00 | NUR ---
Dr Garcia at bedside, updated on patient's status. Patient seen and examined. Will carry out new orders.
--- NOTE | 2019-08-17 12:00 | NUR ---
ANGEL stocking placed on patient
[2019-08-17] MEDS ORDERED: MIR30T PO (12:58)
[2019-08-17] MEDS ORDERED: PANT40T PO (12:58)
[2019-08-17] MEDS ORDERED: MID10T PO (12:58)
[2019-08-17] MEDS ORDERED: MAGN400T21 PO (12:58)
[2019-08-17] MEDS ORDERED: ASP81EC PO (12:58)
--- NOTE | 2019-08-17 13:35 | NUR ---
Maintained patient NPO for Abdominal US. Patient instructed. Verbalized understanding.
--- NOTE | 2019-08-17 13:45 | NUR ---
Assisted patient out of bed to bedside chair, fall precautions in placed. Patient tolerated well.
[2019-08-17 13:47] LABS: Alanine Aminotransferase 157 U/L (16-61); Albumin 1.8 g/dL (3.4-5.0); Anion Gap 7 (5-15); Aspartate Aminotransferase 212 U/L (15-37); BUN/Creatinine Ratio 14.5; Blood Urea Nitrogen 11 mg/dL (7-18); Calcium 8.5 mg/dL (8.5-10.1); Carbon Dioxide 20 mmol/L (21-32); Chloride 107 mmol/L (98-107); GFR African American 135 mL/min; GFR Non-African American 112 mL/min; Glucose 149 mg/dL (74-106); Potassium 3.6 mmol/L (3.5-5.1); Sodium 134 mmol/L (136-145)
[2019-08-17] MEDS: MIDODRINE HCL 10 MG TAB PO SCH ×2 (13:59→20:52)
[2019-08-17 14:00] LABS: Alkaline Phosphatase 250 U/L (45-117); Bilirubin, Total 20.8 mg/dL (0.2-1.0); Total Protein 6.3 g/dL (6.4-8.2)
[2019-08-17 14:21] LABS: Bilirubin, Direct > 16.0 mg/dL (0-0.2)
--- NOTE | 2019-08-17 15:43 | NUR ---
Assisted patient back to bed from bedside chair, fall precautions in placed. Patient tolerated well.
--- NOTE | 2019-08-17 17:52 | NUR ---
Patient still NPO, awaiting Abdominal US. Will facilitate.
--- NOTE | 2019-08-17 18:00 | NUR ---
ANGEL dempsey removed
--- NOTE | 2019-08-17 18:17 | NUR ---
Abdominal ultrasound being done at bedside at this time.
--- NOTE | 2019-08-17 19:26 | NUR ---
OPENING SHIFT RECEIVED REPORT FROM DAY SHIFT RN. ASSUMED CARE OF PATIENT. PATIENT IN BED USING CELLPHONE WITH NO SIGNS OR SYMPTOMS OF SOB, PAIN OR DISTRESS. CURRENTLY ON ROOM AIR, 02 SAT - 97%. RIGHT UPPER ARM PICC X3 - CLEAN/DRY/INTACT. REPOSITIONED FOR COMFORT. BED IN LOWEST POSITION, SIDE RAILS UP X2, CALL LIGHT WITHIN REACH. WILL CONTINUE TO MONITOR. Addendum: 08/18/19 at 0245 by NYA CROCKER RN RN ZOLL VEST IN PLACE, HOTSPOT AND EXTRA BATTERY AT BEDSIDE.
--- NOTE | 2019-08-17 21:21 | NUR ---
ROUNDS DAUGHTER AT BEDSIDE. UPDATED HER ON PLAN OF CARE. PATIENT SITTING AT THE EDGE OF THE BED WITH NO SIGNS OR SYMPTOMS OF DISTRESS, SOB OR PAIN. WILL CONTINUE TO MONITOR.
[2019-08-17] MEDS ORDERED: FLUDROCORTISONE ACETATE 0.1 MG TAB PO SCH (22:00)
[2019-08-17] MEDS: MIRTAZAPINE 30 MG TAB PO SCH (22:24)
[2019-08-18] VITALS (91 sets, daily range): BP systolic 79–111; BP diastolic 37–76
[2019-08-18] MEDS: ACETYLCYSTEINE 10 %(100MG/ML) SOL 4ML NEB SCH ×4 (00:51→18:47)
[2019-08-18] MEDS: ALBUTEROL SULF 2.5 MG/0.5ML(0.5%) NEB SOLN NEB SCH ×4 (00:52→18:47)
[2019-08-18] MEDS: IPRATROPIUM BROM 0.5 MG/2.5ML INH SOL NEB SCH ×4 (00:52→18:47)
--- NOTE | 2019-08-18 03:10 | NUR ---
PATIENT HAD 2 EPISODES OF EMESIS - OUT PUT 50 CC CLEAR EMESIS. ELEVATED HEAD OF BED. LUNG SOUNDS CLEAR/DIMINISHED. WILL CONTINUE TO MONITOR.
[2019-08-18] MEDS: NOREPINEPHRINE 8 MG/250ML KIT 250 ML IV SCH (03:54)
--- NOTE | 2019-08-18 05:14 | NUR ---
PATIENT COMPLAINING OF HICCUPS. WILL CONTINUE TO MONITOR.
[2019-08-18] MEDS: MIDODRINE HCL 10 MG TAB PO SCH ×3 (05:45→18:16)
[2019-08-18] MEDS: MIRTAZAPINE 30 MG TAB PO SCH ×2 (06:00→22:00)
--- NOTE | 2019-08-18 07:30 | NUR ---
REPORT GIVEN TO DAY SHIFT RN.
--- NOTE | 2019-08-18 08:00 | NUR ---
OPENING NOTE Received patient in bed resting with eyes closed, easily arousable to verbal stimuli, alert/oriented X4, speech appropriate and clear, pupils reactive to light, follows simple commands. Sinus rhythm in the 60's on bedside monitor, pulses palpable on upper/lower extremities and no edema observed. Abdomen soft, non tender, non distended bowel sounds present in all quadrants with last bowel movement being on 08/14/2019 per NOC nurse Selvin. Patient uses urinal/bedside commode. Right upper arm PICC line (TLC): good blood return and flushes easily infusing Levophed gtt at 8mcg to keep MAP greater than 60. Scabs to bilateral ears and right ankle open to air, blanchable redness to the sacrum. Call light within reach and bed at lowest position with side rails up X2. Educated patient to use call light PRN for assistance. Will continue to monitor patient closely.
--- NOTE | 2019-08-18 08:55 | NUR ---
ACTIVITY Patient sitting on the side of the bed with breakfast tray.
--- NOTE | 2019-08-18 09:15 | NUR ---
MD Dr. Lowe at bedside updated on patient condition with no new orders received at this time. Will continue to monitor patient closely.
[2019-08-18] MEDS ORDERED: predniSONE 5 MG TAB PO SCH (10:00)
--- NOTE | 2019-08-18 10:05 | NUR ---
FAMILY Patients daughter Sulema at bedside updated on patient condition.
--- NOTE | 2019-08-18 10:15 | NUR ---
ELIMINATION Patient requested to get out of bed to the bedside commode, patient voided and had a bowel movement. Patient tolerated well.
--- NOTE | 2019-08-18 10:25 | NUR ---
ACTIVITY Patient back in bed.
[2019-08-18] MEDS: MAGNESIUM OXIDE 400 MG TAB PO SCH ×2 (10:38→22:00)
[2019-08-18] MEDS: PANTOPRAZOLE 40 MG TAB PO SCH (10:39)
[2019-08-18] MEDS: ASPirin-EC 81 mg tab PO SCH (10:39)
[2019-08-18] MEDS: SODIUM CHLOR 0.9% PF (SALINE LOCK) 10ML VIAL/SYR IV SCH ×2 (10:42→22:00)
--- NOTE | 2019-08-18 10:50 | NUR ---
MD Dr. Garcia at bedside updated on patient condition with no new orders received. MD spoke to patients daughter and patient regarding plan of care and questions/concerns answered by MD. MD aware of hiccups.
--- NOTE | 2019-08-18 12:00 | NUR ---
PARESH HOSE Paresh hose back on, patient tolerated well.
--- NOTE | 2019-08-18 12:30 | NUR ---
NUTRITION Patient's lunch tray at bedside, patient states " leave there will eat later."
--- NOTE | 2019-08-18 12:50 | NUR ---
Nutrition Follow-Up Notes Wt. 61.4 kg as of yesterday. Pt's room curtain's closed, RN at bedside during rounds this morning. Pt's no signs of distress noted by RN earlier, currently on Regular diet with inadequate PO intake aeb <50% (x5) in last 3 days d/t pt refused, per nursing. Noted pt's for active GI and cardiology consults. Estimated needs recalculated based on CBW (55.9 kg)- 1650 kcal 1950 kcal (30-35 kcal/kgBW), 67 to 101 g protein (1.2-1.8 g/kg BW). Will continue to monitor pertinent labs and reassess nutrient need prn Labs: Gluc 149 H, Na 134 L, BUN 20 H, Tot manuel 20.8 H, AST/ALT 212/157 H, ALP 250 H, Tpro 6.3 L, Alb 1.8 L. Skin: Alex 15, mod risk, pt's L ear scab, jaundiced per RN doc. Pls refer to latest dispatch clerk's notes for further details re: tx plans. GI: Pt had 3 ml stool/urine mix output this morning per RN doc PES: Altered nutrition related lab values r/t hepatic dysfunction and acute/chronic medical conditions aeb severely elev LFT's, hypoalb Partially resolved: Increased nutrient needs r/t current medical condition aeb intubated, sedated, severe hypoalbuminemia, NPO with PN support. Will continue to monitor PO intake, pertinent labs, skin status and weight trends. F/u in 3 to 5 days. Additional Recommendation: 1.) Consider Soft Low Fat diet and resume Ensure High Protein 1 carton TID. 2.) Continue close supervision and feeding assistance prn during meals. 3.) If Albumin continues trending down, consider Prostat 1 pkt BID. 4.) If pt's PO intake remains inadequate (<75%), consider alternate nutrition support if medically appropriate. 5.) Refer to RD for further nutrition educ. and weight monitoring upon discharge. 6.) Continue current plan of care.
[2019-08-18] MEDS: BACLOFEN 10 MG TAB PO PRN (14:12)
--- NOTE | 2019-08-18 14:15 | NUR ---
ELIMINATION Patient requested to use bedside commode, was able to voided. Patient back in bed after suggesting patient to sit in chair. Patient refused stating " Am going to try and sleep."
--- NOTE | 2019-08-18 14:35 | NUR ---
MD Dr. Emery at bedside updated on patient condition with no new orders, MD spoke to patient regarding ultrasound results with no questions from patient.
--- NOTE | 2019-08-18 19:00 | NUR ---
open assumed care of male pt conected to icu monitors. pt is sitting up eating dinner that his daughter brought him according to the pt. vs are stable. pt is on rm sating 98%. pt has r upper arm triple lumen. iv flushes and is patent, no ss of redness or swilling noted at this time. dressing is clean and dry. pt states he is not having pain at this time. pt educated control technician light, pt verbalized understanding, call light is within reach. bed is in the lowest position, wheels locked. pt educated to notify staff when he needs to use bed side commode so he can have help with assistance. pt can turn himself. pt verbalized understanding. fall precautions are in place. pt is in full view of rn station, will continue to care for and monitor.
--- NOTE | 2019-08-18 21:20 | NUR ---
no ss of distress no ss of distress noted at this time. pt vs are stable. will continue to monitor
--- NOTE | 2019-08-18 23:11 | NUR ---
assisted pt to commode. assisted pt to bedside commode. pt was provided privacy. pt was unable to have a bm but urinated drk ozzie urine about 100ml. assisted pt back to bed. pt tolerated ambulation.
[2019-08-19] VITALS (89 sets, daily range): BP systolic 65–109; BP diastolic 14–61
[2019-08-19] MEDS: IPRATROPIUM BROM 0.5 MG/2.5ML INH SOL NEB SCH ×4 (00:28→17:57)
[2019-08-19] MEDS: ACETYLCYSTEINE 10 %(100MG/ML) SOL 4ML NEB SCH ×4 (00:28→17:57)
[2019-08-19] MEDS: ALBUTEROL SULF 2.5 MG/0.5ML(0.5%) NEB SOLN NEB SCH ×4 (00:28→17:57)
--- NOTE | 2019-08-19 04:10 | NUR ---
assisted pt to commode. assisted pt to bedside commode. pt was provided privacy. pt was unable to have a bm but urinated drk ozzie urine about 200ml. assisted pt back to bed. pt tolerated ambulation.
--- NOTE | 2019-08-19 04:45 | NUR ---
hygiene pt denied bed bath at this time. rima change and suction canisters changed. pt tolerated care. no ss of distress noted at this time.
[2019-08-19] MEDS: MIDODRINE HCL 10 MG TAB PO SCH ×3 (06:04→18:00)
[2019-08-19] MEDS ORDERED: MIRTAZAPINE 30 MG TAB ONE (06:06)
--- NOTE | 2019-08-19 07:00 | NUR ---
Opening Shift Note: Report received from AGUEDA Sr. Patient on levophed -currently on 6mcg, titrate for Map of 60. On midodrine for BP. See Interventions for further details on patient assesssment.
--- NOTE | 2019-08-19 07:15 | NUR ---
PT REFUSED CPT. PT STATES HE JUST DOES NOT WANT IT. NO PAIN PER PATIENT. PT EDUCATED OF IMPORTANCE OF ORDERED TREATMENTS, PT VU AND STILL REFUSES.
--- NOTE | 2019-08-19 09:20 | NUR ---
Spoke with Dr. Gracia on 5 of levophed wanted levophed off. Turned off Levophed at 0900 and at 0915 patients blood pressure went down to map of 54 -turned levophed back on at 4mcg. Continue to monitor and titrate. Addendum: 08/19/19 at 1455 by Lisa Lebron RN Javed costa for BP control.
--- NOTE | 2019-08-19 09:25 | NUR ---
Dr. Lowe at bedside: Assessed patient - patients bilirubin down.
[2019-08-19] MEDS: PANTOPRAZOLE 40 MG TAB PO SCH (10:16)
[2019-08-19] MEDS: MAGNESIUM OXIDE 400 MG TAB PO SCH ×2 (10:16→22:00)
[2019-08-19] MEDS: ASPirin-EC 81 mg tab PO SCH (10:17)
[2019-08-19] MEDS: SODIUM CHLOR 0.9% PF (SALINE LOCK) 10ML VIAL/SYR IV SCH ×2 (10:17→22:00)
[2019-08-19] MEDS ORDERED: BACLOFEN 10 MG TAB PO PRN (11:00)
[2019-08-19] MEDS: BACLOFEN 10 MG TAB PO PRN (11:16)
[2019-08-19] MEDS ORDERED: FLUDROCORTISONE ACETATE 0.1 MG TAB PO ONE (11:30)
--- NOTE | 2019-08-19 11:30 | NUR ---
WOUND CARE NOTE: Weekly reevaluation by wound care team. Patient has been on skin integrity rounding due to previous intubation and low Alex score. Discussed with bedside RN, Lisa. Patient is alert and denies pain. Last Alex score is 16. Patient remains in ICU due to drips. Patient is getting out of bed to chair with nursing staff. Patient remains free of wound at this time. Wound care to continue to monitor while Alex <18.
--- NOTE | 2019-08-19 12:07 | NUR ---
Dr. Emery at bedside- Patient assessed.
--- NOTE | 2019-08-19 13:00 | NUR ---
Patient nauseated - (no emesis) zofran given.
--- NOTE | 2019-08-19 13:56 | NUR ---
Per patient -Paulo nieto to give updates to step-daughters: Joesph [phone]
[2019-08-19] MEDS: ONDANSETRON HCL 4 MG/2 ML VIAL IV PRN (14:33)
--- NOTE | 2019-08-19 18:57 | NUR ---
Endorsed care to AGUEDA Sr.
--- NOTE | 2019-08-19 19:30 | NUR ---
open assumed care of male pt connected to icu monitors. pt is sitting up in bed on his phone. vs are stable. pt is on rm sating 98%. pt has r upper arm triple lumen. iv flushes and is patent, no ss of redness or swilling at iv site noted at this time. dressing is clean and dry. pt states he is not having pain at this time. pt educated rehabilitation services manager light, pt verbalized understanding, call light is within reach. bed is in the lowest position, wheels locked. pt educated to notify staff when he needs to use bed side commode so he can have help with assistance. pt can turn himself. pt verbalized understanding. fall precautions are in place. pt is in full view of rn station, will continue to care for and monitor.
--- NOTE | 2019-08-19 20:39 | NUR ---
FAMILY AT BEDSIDE
[2019-08-19] MEDS: MIRTAZAPINE 30 MG TAB PO SCH (22:00)
--- NOTE | 2019-08-19 23:06 | NUR ---
no distress noted pt is awake and laying in bed, no ss of distress noted at this time. asked pt if he was in pain, pt denied pain at this time.
[2019-08-20] VITALS (52 sets, daily range): BP systolic 75–113; BP diastolic 33–65
[2019-08-20] MEDS: IPRATROPIUM BROM 0.5 MG/2.5ML INH SOL NEB SCH ×4 (00:06→18:39)
[2019-08-20] MEDS: ALBUTEROL SULF 2.5 MG/0.5ML(0.5%) NEB SOLN NEB SCH ×4 (00:07→18:39)
[2019-08-20] MEDS: ACETYLCYSTEINE 10 %(100MG/ML) SOL 4ML NEB SCH ×4 (00:07→18:40)
[2019-08-20] MEDS: NOREPINEPHRINE 8 MG/250ML KIT 250 ML IV SCH (01:33)
--- NOTE | 2019-08-20 03:15 | NUR ---
hygiene partial rima change, suction canisters and tubing changed. pt tolerated care. pt states he is not in pain
[2019-08-20 04:44] LABS: Albumin 1.9 g/dL (3.4-5.0); Calcium 8.7 mg/dL (8.5-10.1)
[2019-08-20 04:46] LABS: BUN/Creatinine Ratio 10.8
[2019-08-20 04:57] LABS: Bilirubin, Total 19.2 mg/dL (0.2-1.0); Total Protein 6.2 g/dL (6.4-8.2)
--- NOTE | 2019-08-20 05:39 | NUR ---
pt appears to be sleeping vs are stable, no ss of distress noted at this time. will continue to monitor.
[2019-08-20] MEDS: MIDODRINE HCL 10 MG TAB PO SCH ×3 (06:06→18:12)
--- NOTE | 2019-08-20 08:00 | NUR ---
INITIAL/ONGOING ASSESSMENT: Assumed care of patient, currently off of Levo. MAP meeting and exceeding goal of 60 as written by the physician. Patient is currently with no signs of pain or distress. Offered breakfast, refused tray, states that his daughter will be visiting today and is bringing him food.
[2019-08-20] MEDS: POTASSIUM CHL 20MEQ/100ML 100 ML IV SCH ×2 (08:08→10:12)
[2019-08-20] MEDS: BACLOFEN 10 MG TAB PO PRN ×2 (08:09→16:43)
--- NOTE | 2019-08-20 09:27 | NUR ---
Discharge planning per consult, patient was requesting information on an advance directive. Patient stated that someone was already helping him fill one out and he did not request a second one. The information was left at bedside for his review, he had no objections. Addendum: 08/20/19 at 0933 by CRISTIAN OSMAN SS Amended: Links added. Addendum: 08/20/19 at 0935 by CRISTIAN OSMAN SS Error-this note was entered on the wrong patient.
--- NOTE | 2019-08-20 09:39 | NUR ---
Discharge planning per consult, patient gimenez order for SNF placement. Referral faxed to [facility] for review. Placed a follow up call, spoke to Nacho ([phone]), he advised that they previously submitted and secured a bed at the [facility], near the son in [place], and family is okay wit patient going down there and he was going to resend the SNF packet and call me back to let me know if they in fact still had an available bed or will send it to other SNF facilities. Addendum: 08/20/19 at 1000 by CRISTIAN OSMAN Amended: Links added.
[2019-08-20] MEDS ORDERED: FLUDROCORTISONE ACETATE 0.1 MG TAB PO SCH (10:00)
[2019-08-20] MEDS: PANTOPRAZOLE 40 MG TAB PO SCH (10:12)
[2019-08-20] MEDS: ASPirin-EC 81 mg tab PO SCH (10:12)
[2019-08-20] MEDS: MAGNESIUM OXIDE 400 MG TAB PO SCH ×2 (10:13→21:59)
[2019-08-20] MEDS: SODIUM CHLOR 0.9% PF (SALINE LOCK) 10ML VIAL/SYR IV SCH ×2 (10:17→21:58)
[2019-08-20] MEDS: ONDANSETRON HCL 4 MG/2 ML VIAL IV PRN (10:42)
--- NOTE | 2019-08-20 10:52 | NUR ---
AT BEDSIDE: Dr. Lowe at bedside, no further orders.
--- NOTE | 2019-08-20 11:15 | NUR ---
FAMILY: Patient's daughter at bedside with food from home. Updated her that patient is off of Levophed since the beginning of the day shift. Patient has been maintaining adequate blood pressure with MAP exceeding 60.
[2019-08-20] MEDS ORDERED: COLCHICINE 0.6 MG CAP PO ONE (14:45)
[2019-08-20] MEDS ORDERED: COLCHICINE 0.6 MG CAP ONE (14:46)
--- NOTE | 2019-08-20 15:55 | NUR ---
RECEIVED FROM ICU PT ON ROOM AIR SPO2 IN THE MID 90'S DENIES ANY CP OR S.O.B VSS, AFEBRILE, REPOSITIONED IN BED. PT HAS A ZOLL VEST ON. PT'S DAUGHTER ALLOWED AT BED SIDE. EDUCATED ON POC, BOTH PT'S DAUGHTER & PT VERBALIZED UNDERSTANDING.
--- NOTE | 2019-08-20 18:40 | NUR ---
RT NOTE PT WAS SEEN BY RT FOR HHN TX. PT TOLERATES WELL VIA MASK. CONT ORDERED. POX 100% ON R/A Addendum: 08/20/19 at 1857 by Karen Mckoy RT Amended: Links added.
--- NOTE | 2019-08-20 19:36 | NUR ---
INITIAL CONTACT ASSUMED CARE OF PATIENT PATIENT APPEARS TO BE RESTING IN BED COMFORTABLY IN SEMI-FOWLERS POSITION AT THIS TIME VITAL SIGNS SHOW HYPOTENSION HOWEVER PATIENT IS ASYMPTOMATIC AT THIS TIME, WILL CONTINUE TO MONITOR. NO S/S OF DISTRESS NOTED, PATIENT DENIES PAIN. URINAL AT BEDSIDE. PATIENT STANDS WITH ASSIST AND IS ABLE TO TAKE A FEW SHORT STEPS TO THE BEDSIDE COMMODE. PATIENT IS ON ROOM AIR O2 SATS AT 99%. NOTED RIGHT UPPER ARM PICC LINE IN TACT WITH NO S/S OF INFILTRATION OR PHLEBITIS. PATIENT IS IN FULL VIEW OF NURSES STATION, SAFETY MAINTAINED, WILL CONTINUE TO MONITOR
--- NOTE | 2019-08-20 20:25 | NUR ---
ROYER AIKEN PAGED PATIENT IS MAPPING IN THE HIGH 50'S LOW 60'S ATTILA PAGED FOR LEVOPHED ORDER
[2019-08-20] MEDS ORDERED: NOREPINEPHRINE 8 MG/250ML KIT 250 ML IV ONE (20:33)
[2019-08-20] MEDS ORDERED: NOREPINEPHRINE 8 MG/250ML KIT 250 ML IV SCH (20:45)
[2019-08-20] MEDS ORDERED: ALBUMIN 5% 250 ML IV ONE (20:45)
--- NOTE | 2019-08-20 20:46 | NUR ---
CALL RECEIVED FROM ROYER AIKEN PATIENT STATUS GIVEN/VITAL SIGNS ORDERS GIVEN FOR ALBUMIN PER ROYER AIKEN [place]AY IF PATIENT IS MAPPING IN THE HIGH 50'S LOW 60'S
--- NOTE | 2019-08-20 21:55 | NUR ---
ROYER AIKEN PAGED ATTILA EWING CONCERNING PATIENTS B/P, MAP IN THE LOW 50'S IV ALBUMIN RUNNING AT THIS TIME
[2019-08-20] MEDS: MIRTAZAPINE 30 MG TAB PO SCH (22:18)
--- NOTE | 2019-08-20 23:10 | NUR ---
CALL RECEIVED FROM [facility],APICULTURIST UPDATES GIVEN ON PATIENT'S B/P AND VITAL SIGNS ORDERS GIVEN
[2019-08-20] MEDS ORDERED: SODIUM CHLORIDE 0.9% 500 ML IV ONE (23:30)
[2019-08-21] MEDS: ALBUTEROL SULF 2.5 MG/0.5ML(0.5%) NEB SOLN NEB SCH ×4 (00:46→18:54)
[2019-08-21] MEDS: IPRATROPIUM BROM 0.5 MG/2.5ML INH SOL NEB SCH ×4 (00:46→18:54)
[2019-08-21] MEDS: ACETYLCYSTEINE 10 %(100MG/ML) SOL 4ML NEB SCH ×2 (00:46→05:51)
--- NOTE | 2019-08-21 00:48 | NUR ---
RT NOTE PT WAS SEEN BY RT FOR HHN TX. PT TOLERATES WELL VIA MASK. PT REFUSED MANUAL CPT AT THIS TIME. PT NOTED TO HAVE THE HICCUPS. SHAWNA SUCTION SET UP PER PT REQUEST. CONT ORDERED Addendum: 08/21/19 at 0049 by Karen Mckoy RT Amended: Links added.
[2019-08-21 04:00] VITALS: BP 83/47
[2019-08-21 04:53] LABS: Basophils # (auto) 0.1 uL; Basophils % (auto) 2.1 % (0.0-2.0); Eosinophils # (auto) 0.6 uL; Eosinophils % (auto) 8.5 % (0.0-7.0); Hemoglobin 9.2 g/dL (13.5-17.5); Lymphocytes # (auto) 1.8 uL; Lymphocytes % (auto) 26.1 % (10.0-50.0); Mean Corpuscular Hemoglobin 33.8 pg (28.0-32.0); Mean Corpuscular Hgb Conc. 35.5 g/dL (32.0-36.0); Mean Corpuscular Volume 95.1 fL (80.0-100.0); Monocytes # (auto) 0.7 uL; Monocytes % (auto) 9.6 % (0.0-12.0); Neutrophils # (auto) 3.7 uL; Neutrophils % (auto) 53.7 % (37.0-80.0); Nucleated Red Blood Cells % 0.1 %; Platelet Count (auto) 205 10^3/uL (140-450); Red Blood Cells 2.73 10^6/uL (4.5-5.90); White Blood Cell 6.8 10^3/uL (4.4-10.8)
[2019-08-21 04:56] LABS: Red Cell Distribution Width 20.9 % (11.8-14.3)
[2019-08-21 05:19] LABS: Calcium 8.4 mg/dL (8.5-10.1); Potassium 3.1 mmol/L (3.5-5.1)
[2019-08-21 05:35] LABS: Total Protein 5.8 g/dL (6.4-8.2)
[2019-08-21] MEDS: MIDODRINE HCL 10 MG TAB PO SCH ×3 (07:09→18:52)
[2019-08-21 07:45] VITALS: BP 92/32
--- NOTE | 2019-08-21 08:00 | NUR ---
Opening Shift Note Assumed care of patient, awake and alert. Patient A&Ox4. Patient on the monitor. IV right upper arm PICC saline locked, patent, clean, dry, and intact. Patient uses bedside commode with stand by assist. No S/S of distress/SOB or pain. Instructed on POC and to call for assist PRN. Bed locked and in the lowest position, side rails up x2, call light with in reach. Will continue to monitor. Addendum: 08/21/19 at 1733 by Araseli Malave RN Patient A&Ox3.
--- NOTE | 2019-08-21 08:30 | NUR ---
Patient sitting up in bed eating breakfast independently. Will continue to monitor.
[2019-08-21] MEDS: PANTOPRAZOLE 40 MG TAB PO SCH (09:45)
[2019-08-21] MEDS: MAGNESIUM OXIDE 400 MG TAB PO SCH (09:45)
[2019-08-21] MEDS: ASPirin-EC 81 mg tab PO SCH (09:45)
[2019-08-21] MEDS: SODIUM CHLOR 0.9% PF (SALINE LOCK) 10ML VIAL/SYR IV SCH (09:47)
--- NOTE | 2019-08-21 09:55 | NUR ---
Dr. Garcia at bedside.
--- NOTE | 2019-08-21 10:15 | NUR ---
Medication dosages, usages, and side effects explained to patient. Patient verbalized understanding. Will continue to monitor.
[2019-08-21 11:40] VITALS: BP 98/67
[2019-08-21] MEDS: Ensure HIGH Protein Chocolate 8oz Bottle PO SCH ×2 (12:12→18:00)
--- NOTE | 2019-08-21 12:30 | NUR ---
Patient refused Lunch tray states he is not hungry at this time. Will continue to monitor.
--- NOTE | 2019-08-21 13:30 | NUR ---
UNABLE TO ADMINISTER MED NEB. RT BUSY TRIAGING PTS IN ER. PT IN NO DISTRESS NO WHEEZING NOTED. PT ON RA WITH SPO2 > 95%.
--- NOTE | 2019-08-21 15:00 | NUR ---
Patient resting at this time. No S/S of pain/SOB or distress at this time. Will continue to monitor.
[2019-08-21 16:03] VITALS: BP 85/48
[2019-08-21] MEDS ORDERED: POTASSIUM CHL 20 Meq TABLET PO ONE (16:45)
--- NOTE | 2019-08-21 17:15 | NUR ---
Patient resting at this time. No S/S of pain/SOB or distress at this time. Will continue to monitor.
--- NOTE | 2019-08-21 17:58 | NUR ---
Discharge planning per SS consult, patient has orders to dc to SNF. Referral sent to Nacho at [facility] for placement. Nacho called back to advised that the patient was accepted at [facility] at [address] [place] [address] , to room [address] Rojas. Transportation was arranged via [employer] with [employer] -auth trip# is [id number], and they will arrive at approximately 7pm to pick patient up for transport. Nurse Pizarro was notified of dc plan. Addendum: 08/21/19 at 1802 by CRISTIAN OSMAN Amended: Links added.
--- NOTE | 2019-08-21 18:59 | NUR ---
RT NOTE PT WAS SEEN BY RT FOR HHN TX. PT TOLERATES WELL VIA MASK. NO ADVERSE REACTION NOTED. CONT ORDERED Addendum: 08/21/19 at 1900 by Karen Mckoy RT Amended: Links added.
--- NOTE | 2019-08-21 19:05 | NUR ---
Patient going to [facility] bed 25B. Address is [id number] [place] [address]. Phone Number is [phone]. Discharge paperwork printed and signed by patient and given to patient. Notified Patient's step daughter Dedra at 1755 that patient would be going to SNF between [id number]. All belongings packed and ready to be taken with the patient. Report called to Era ROMEO at [facility]. Report given to Maria Guadalupe ROMEO warehouse worker 2nd shift RN.
--- NOTE | 2019-08-21 19:30 | NUR ---
received pt from day rn poc reviewed
--- NOTE | 2019-08-21 19:45 | NUR ---
pt observed resting zoll vest in place, gown and pad changed, pt verbalized understanding of transfer, all questions and concerns addressed, right upper arm picc removed per protocol, pressure dressing and coban applied picc line removed with tip intact, no s/s of hematoma, pt transferred with glasses and cell phone and all property
[2019-08-21 20:25] VITALS: BP 87/50
== END 2019-08-22 00:08 | DRG 720 ==
LOC: ER 19:38 → TELE 19:39 → ICU WEST 23:53 → TELE-WESTW 08-10 20:53 → ICU WEST 08-13 01:48 → DOU IN ICU 08-14 21:52 → ICU WEST 08-16 17:35 → DOU IN ICU 08-20 15:27
PROVIDERS: ADMIT Nurse Practitioner; ATTEND Internal Medicine
PROC: 5A1955Z Respiratory Ventilation, Greater than 96 Consecutive Hours (ICD-10-PCS; 2019-07-16)
PROC: 02HV33Z Insertion of Infusion Device into Superior Vena Cava, Percutaneous Approach (ICD-10-PCS; 2019-07-16)
PROC: 0BH17EZ Insertion of Endotracheal Airway into Trachea, Via Natural or Artificial Opening (ICD-10-PCS; 2019-07-16)
PROC: 4A023N8 Measurement of Cardiac Sampling and Pressure, Bilateral, Percutaneous Approach (ICD-10-PCS; principal; 2019-07-17)
PROC: B2151ZZ Fluoroscopy of Left Heart using Low Osmolar Contrast (ICD-10-PCS; 2019-07-17)
PROC: 5A02210 Assistance with Cardiac Output using Balloon Pump, Continuous (ICD-10-PCS; 2019-07-17)
PROC: B2111ZZ Fluoroscopy of Multiple Coronary Arteries using Low Osmolar Contrast (ICD-10-PCS; 2019-07-17)
PROC: 02HV33Z Insertion of Infusion Device into Superior Vena Cava, Percutaneous Approach (ICD-10-PCS; 2019-07-17)
PROC: 5A1955Z Respiratory Ventilation, Greater than 96 Consecutive Hours (ICD-10-PCS; 2019-08-01)
PROC: 0BH17EZ Insertion of Endotracheal Airway into Trachea, Via Natural or Artificial Opening (ICD-10-PCS; 2019-08-01)
PROC: 02HV33Z Insertion of Infusion Device into Superior Vena Cava, Percutaneous Approach (ICD-10-PCS; 2019-08-04)
PROC: 0BH17EZ Insertion of Endotracheal Airway into Trachea, Via Natural or Artificial Opening (ICD-10-PCS; 2019-08-07)
DX: A41.9 Sepsis, unspecified organism (principal); I21.A1 Myocardial infarction type 2; E43 Unspecified severe protein-calorie malnutrition; J15.0 Pneumonia due to Klebsiella pneumoniae; J15.211 Pneumonia due to Methicillin susceptible Staphylococcus aureus; J96.01 Acute respiratory failure with hypoxia; R57.0 Cardiogenic shock; R65.21 Severe sepsis with septic shock; J95.851 Ventilator associated pneumonia; E83.39 Other disorders of phosphorus metabolism; D69.6 Thrombocytopenia, unspecified; E87.3 Alkalosis; I13.0 Hypertensive heart and chronic kidney disease with heart failure and stage 1 through stage 4 chronic kidney disease, or unspecified chronic kidney disease; G93.1 Anoxic brain damage, not elsewhere classified; E83.42 Hypomagnesemia; N17.9 Acute kidney failure, unspecified; I48.0 Paroxysmal atrial fibrillation; E78.5 Hyperlipidemia, unspecified; E79.0 Hyperuricemia without signs of inflammatory arthritis and tophaceous disease; F41.9 Anxiety disorder, unspecified; E87.6 Hypokalemia; N18.3 Chronic kidney disease, stage 3 (moderate); I08.1 Rheumatic disorders of both mitral and tricuspid valves; I27.20 Pulmonary hypertension, unspecified; I50.43 Acute on chronic combined systolic (congestive) and diastolic (congestive) heart failure; I49.3 Ventricular premature depolarization; K70.9 Alcoholic liver disease, unspecified; E86.1 Hypovolemia; I42.6 Alcoholic cardiomyopathy; K76.0 Fatty (change of) liver, not elsewhere classified; N39.0 Urinary tract infection, site not specified; K70.40 Alcoholic hepatic failure without coma; D73.5 Infarction of spleen; Z51.5 Encounter for palliative care; Y84.8 Other medical procedures as the cause of abnormal reaction of the patient, or of later complication, without mention of misadventure at the time of the procedure; F32.9 Major depressive disorder, single episode, unspecified; K70.30 Alcoholic cirrhosis of liver without ascites; F17.200 Nicotine dependence, unspecified, uncomplicated; Z79.01 Long term (current) use of anticoagulants; Z91.19 Patient's noncompliance with other medical treatment and regimen; Z99.11 Dependence on respirator [ventilator] status; Z79.899 Other long term (current) drug therapy
CPT/HCPCS: 31500; 33967; 36415; 36569; 36600; 71045; 71260; 74177; 76700; 76705; 76775; 80048; 80053; 80061; 80074; 80076; 80162; 80202; 80307; 81001; 82040; 82140; 82247; 82248; 82533; 82805; 82962; 83036; 83605; 83735; 83880; 84100; 84132; 84443; 84478; 84484; 84550; 85025; 85379; 85610; 85730; 86703; 87040; 87070; 87077; 87081; 87086; 87088; 87186; 87205; 92610; 93005; 93306; 93460; 93970; 94002; 94003; 94640; 94667; 94668; 96361; 96365; 96367; 96375; 97110; 97116; 97163; 97530; 99152; 99153; 99291; A4565; A4618; C1751; C9113; G0378; J0330; J0610; J0696; J1815; J1956; J2250; J2405; J2543; J2704; J3480; J3490; J7060; J7131; Q9967